=== PATIENT | male | born 1995 | race Two or more races ===

== ENCOUNTER 2017-10-22 15:44 | Inpatient (IN) | payer OTHER ==
[2017-10-22 16:36] VITALS: BMI 33.1
--- NOTE | 2017-10-22 20:35 | HP ---
COWS - Scale Resting Pulse: 0= [place] 80 or Below Sweatin=Flushed/Facial Moisture Restless Observation: 5= Unable to Sit Still Pupil Size: 1= Pupils >than Normal Bone or Joint Aches: 4=Acute Joint/Muscle Pain Runny Nose/ Eye Tearin= Runny Nose/Eyes GI Upset > 30mins: 0= None Tremor Observation: 1= Tremor [place], Not Seen Yawning Observation: 0= None Anxiety or Irritability: 2=Irritable/Anxious Goose Flesh Skin: 0=Smooth Skin COWS Score: 17 Admission ROS S - HPI Chief Complaint: "I AM HERE TO GET DETOXED" Allergies/Adverse Reactions: Allergies Allergy/AdvReac Type Severity Reaction Status Date / Time No Known Allergies Allergy Verified 10/22/17 19:24 History of Present Illness: 22 Y.O. MALE WITH HX/O OF OPIOID DEPENDENCE HERE FOR DETOX. CLIENT REPORTS THIS IS HIS FIRST TIME IN DRUG TXMENT. SELF REFERRED. DENIES ANY SIGNIFICANT PERIOD OF TIME. Exam Limitations: No Limitations - Ebola screening Have you traveled outside of the country in the last 21 days: No Have you had contact with anyone from an Ebola affected area: No Have you been sick,other than usual withdrawal symptoms: No Do you have a fever: No - Review of Systems Constitutional: Chills, Loss of Appetite, Malaise, Night Sweats, Changes in sleep, Unintentional Wgt. Loss EENT: reports: Nose Congestion, Dental Problems (TOOTH PAIN) Respiratory: reports: No Symptoms reported Cardiac: reports: No Symptoms Reported GI: reports: Constipated, Poor Appetite, Poor Fluid Intake, Abdominal cramping : reports: No Symptoms Reported Musculoskeletal: reports: Back Pain, Joint Pain Integumentary: reports: No Symptoms Reported Neuro: reports: Headache Endocrine: reports: No Symptoms Reported Hematology: reports: No Symptoms Reported Psychiatric: reports: Anxious, Depressed Other Systems: Reviewed and Negative Patient History - Patient Medical History Hx Anemia: No Hx Asthma: No Hx Chronic Obstructive Pulmonary Disease (COPD): No Hx Cancer: No Hx Cardiac Disorders: No Hx Congestive Heart Failure: No Hx Hypertension: No Hx Hypercholesterolemia: No Hx Pacemaker: No HX Cerebrovascular Accident: No Hx Seizures: No Hx Dementia: No Hx Diabetes: No Hx Gastrointestinal Disorders: Yes (ACID REFLUX) Hx Liver Disease: No Hx Genitourinary Disorders: No Hx Sexually Transmitted Disorders: No Hx Renal Disease (ESRD): No Hx Thyroid Disease: No Hx Human Immunodeficiency Virus (HIV): No Hx Hepatitis C: No Hx Depression: No Hx Suicide Attempt: No Hx Bipolar Disorder: No Hx Schizophrenia: No Other Medical History: ANXIETY - Patient Surgical History Past Surgical History: Yes Hx Neurologic Surgery: No Hx Cataract Extraction: No Hx Cardiac Surgery: No Hx Lung Surgery: No Hx Breast Surgery: No Hx Breast Biopsy: No Hx Abdominal Surgery: No Hx Appendectomy: No Hx Cholecystectomy: No Hx Genitourinary Surgery: No Hx Section: No Hx Orthopedic Surgery: Yes (L KNEE FX REPAIR WITH HARDWARE) Anesthesia Reaction: No - PPD History Previous Implant?: Yes Documented Results: Negative w/o proof Implanted On Prior [facility] Admission?: No PPD to be Administered?: Yes - Smoking Cessation Smoking history: Current every day smoker Have you smoked in the past 12 months: Yes Aproximately how many cigarettes per day: 20 Cigars Per Day: 0 Hx Chewing Tobacco Use: No Initiated information on smoking cessation: Yes 'Breaking Loose' booklet given: 10/22/17 - Substance & Tx. History Hx Alcohol Use: No Hx Substance Use: Yes Substance Use Type: Opiates Hx Substance Use Treatment: No - Substances Abused MS CONTIN Route: Oral Frequency: Daily Amount used: 5gm Age of first use: 21 Date of Last Use: 10/22/17 Family Disease History - Family Disease History Family Disease History: Respiratory: Father, Other: Mother (HTN) Admission Physical Exam BHS - Vital Signs Vital Signs: Vital Signs - 24 hr 10/22/17 16:33 Temperature 99.8 F H Pulse Rate 71 Respiratory 18 Rate Blood Pressure 158/85 - Physical General Appearance: Yes: Appropriately Dressed, Mild Distress, Tremorous, Sweating, Anxious HEENTM: Yes: EOMI, Normocephalic, Normal Voice, ELAINE (DIALATED), Pharynx Normal , Rhinorrhea Respiratory: Yes: Chest Non-Tender, Lungs Clear, Normal Breath Sounds, No Respiratory Distress, No Accessory Muscle Use Neck: Yes: No masses,lesions,Nodules, Supple, Trachea in good position Breast: Yes: Breast Exam Deferred Cardiology: Yes: Regular Rhythm, Regular Rate, S1, S2 Abdominal: Yes: Non Tender, Soft, Increased Bowel Sounds Genitourinary: Yes: Within Normal Limits Back: Yes: Normal Inspection Musculoskeletal: Yes: full range of Motion, Gait Steady Extremities: Yes: Normal Range of Motion, Non-Tender, Tremors 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 NML intact, Fully Oriented, Alert, Motor Strength 5/5 Integumentary: Yes: Warm, Moist, Other (FLUSHED) Lymphatic: Yes: Within Normal Limits - Diagnostic (1) Opioid dependence with withdrawal Current Visit: Yes Status: Chronic (2) Nicotine dependence Current Visit: Yes Status: Chronic Qualifiers: Nicotine product type: cigarettes Substance use status: uncomplicated Qualified Code(s): F17.210 - Nicotine dependence, cigarettes, uncomplicated (3) Constipation Current Visit: Yes Status: Chronic Qualifiers: Constipation type: drug induced constipation Qualified Code(s): K59.03 - Drug induced constipation Cleared for Admission [facility] - Detox or Rehab [facility] Level of Care: Medically Managed Detox Regimen/Protocol: Methadone Claeared for Rehab Admission: No S Breath Alcohol Content Breath Alcohol Content: 0 Urine Drug Screen - Results Drug Screen Negative: No Urine Drug Screen Results: OPI-Opiates, OXY-Oxycodone
[2017-10-22] MEDS ORDERED: MAGNESIUM HYDROX 2400MG/30ML ORAL SUSPENSION 30 ML CUP PO PRN (20:48)
[2017-10-22] MEDS ORDERED: P-EPHED 60MG/TRIPROLIDI 2.5MG TABLET PO PRN (20:48)
[2017-10-22] MEDS ORDERED: LOPERAMIDE HCL 2 MG CAPSULE PO PRN (20:48)
[2017-10-22] MEDS ORDERED: MAGNESIUM CITRATE 300 ML BOTTLE PO PRN (20:48)
[2017-10-22] MEDS ORDERED: MENTHOL/PHENOL 1 EACH UD MM PRN (20:48)
[2017-10-22] MEDS ORDERED: NICOTINE POLACRILEX 2 MG GUM BC PRN (20:48)
[2017-10-22] MEDS ORDERED: ACETAMINOPHEN 325 MG TABLET (FP) PO PRN (20:48)
[2017-10-22] MEDS ORDERED: MAG HYDROX/AL HYDROX/SIMETH 30 ML UNIT-DOSE CUP PO PRN (20:48)
[2017-10-22] MEDS ORDERED: IBUPROFEN 400 MG TABLET (FP) PO PRN (20:48)
[2017-10-22] MEDS ORDERED: METHADONE HCL 10 MG TABLET (FOR DETOX USE ONLY) PO ONE ×2 (20:48→23:00)
[2017-10-22] MEDS ORDERED: guaiFENesin/D-METHORPHAN HB 10 ML UNIT-DOSE CUPS PO PRN (20:48)
[2017-10-22] MEDS: DOCUSATE SODIUM 100 MG CAPSULE (FP) PO SCH (21:56)
[2017-10-22] MEDS: diazePAM 5 MG TABLET PO PRN (21:56)
[2017-10-22] MEDS: THIAMINE HCL 100 MG TABLET (FP) PO SCH (21:57)
[2017-10-22] MEDS ORDERED: MELATONIN 5 MG TABLETS PO PRN (22:00)
[2017-10-23] MEDS ORDERED: METHADONE HCL 10 MG TABLET (FOR DETOX USE ONLY) PO ONE (10:00)
[2017-10-23 10:10] LABS: ALBUMIN 3.8 g/dl (3.4-5.0); ANION GAP 7 (8-16); BLOOD UREA NITROGEN 13 mg/dL (7-18); CALCIUM 8.7 mg/dL (8.5-10.1); CHLORIDE 107 mmol/L (98-107); CO2 27 mmol/L (21-32); GLUCOSE,RANDOM 110 mg/dL (74-106); POTASSIUM 3.7 mmol/L (3.5-5.1); SODIUM 141 mmol/L (136-145)
[2017-10-23 10:14] LABS: HEMATOCRIT 39.3 % (35.4-49); HEMOGLOBIN 12.9 GM/dL (11.7-16.9); MCH 26.8 pg (25.7-33.7); MCHC 32.9 g/dl (32.0-35.9); MEAN CELL VOLUME 81.5 fl (80-96); MEAN PLT VOLUME 8.2 fl (7.5-11.1); PLATELET COUNT 260 K/MM3 (134-434); RBC 4.82 M/mm3 (4.00-5.60); WHITE BLOOD COUNT 10.9 K/mm3 (4.0-10.0)
--- NOTE | 2017-10-23 10:14 | EKG ---
Test Reason : Blood Pressure : / mmHG Vent. Rate : 077 BPM Atrial Rate : 077 BPM P-R Int : 160 ms QRS Dur : 096 ms QT Int : 374 ms P-R-T Axes : 041 054 031 degrees QTc Int : 423 ms NORMAL SINUS RHYTHM NORMAL ECG NO PREVIOUS ECGS AVAILABLE Confirmed by Lupillo Cat MD ([id number]) on 10/23/2017 10:14:22 AM Referred By: Confirmed By:Lupillo Cat MD
[2017-10-23 10:15] LABS: ALK PHOS 96 U/L (45-117); BILIRUBIN,TOTAL 0.8 mg/dL (0.2-1.0); CREATININE 0.9 mg/dL (0.7-1.3); SGOT/AST 12 U/L (15-37); SGPT/ALT 40 U/L (12-78); TOT PROT 6.9 g/dl (6.4-8.2)
[2017-10-23] MEDS: diazePAM 5 MG TABLET PO PRN ×3 (10:32→22:16)
[2017-10-23] MEDS: PRENATAL VITAMINS W/ FOLIC ACID TABLET (FP) PO SCH (10:32)
[2017-10-23] MEDS: NICOTINE 21 MG/24 HOURS TOPICAL PATCH TD SCH (10:33)
--- NOTE | 2017-10-23 11:36 | PN ---
BHS COWS - Scale Resting Pulse: 0= [place] 80 or Below Sweatin= Chills/Flushing Restless Observation: 3= Extraneous Movement Pupil Size: 2= Moderately Dilated Bone or Joint Aches: 4=Acute Joint/Muscle Pain Runny Nose/ Eye Tearin= Nasal Congestion GI Upset > 30mins: 1= Stomach Cramp Tremor Observation of Outstretched Hands: 1= Tremor [place], Not Seen Yawning Observation: 2= >3x During Session Anxiety or Irritability: 2=Irritable/Anxious Goose Flesh Skin: 0=Smooth Skin COWS Score: 17 BHS Progress Note (SOAP) Subjective: ANXIETY,SWEATS,IRRITABILITY,HOT/COLD SWEATS. Objective: 10/23/17 11:38 Vital Signs Temperature 99.1 F 10/23/17 09:16 Pulse Rate 76 10/23/17 09:16 Respiratory Rate 18 10/23/17 09:16 Blood Pressure 119/70 10/23/17 09:16 O2 Sat by Pulse Oximetry (%) Laboratory Last Values WBC 10.9 K/mm3 (4.0-10.0) H 10/23/17 08:00 RBC 4.82 M/mm3 (4.00-5.60) 10/23/17 08:00 Hgb 12.9 GM/dL (11.7-16.9) 10/23/17 08:00 Hct 39.3 % (35.4-49) 10/23/17 08:00 MCV 81.5 fl (80-96) 10/23/17 08:00 MCH 26.8 pg (25.7-33.7) 10/23/17 08:00 MCHC 32.9 g/dl (32.0-35.9) 10/23/17 08:00 RDW 15.0 % (11.9-15.9) 10/23/17 08:00 Plt Count 260 K/MM3 (134-434) 10/23/17 08:00 MPV 8.2 fl (7.5-11.1) 10/23/17 08:00 Sodium 141 mmol/L (136-145) 10/23/17 08:00 Potassium 3.7 mmol/L (3.5-5.1) 10/23/17 08:00 Chloride 107 mmol/L (98-107) 10/23/17 08:00 Carbon Dioxide 27 mmol/L (21-32) 10/23/17 08:00 Anion Gap 7 (8-16) L 10/23/17 08:00 BUN 13 mg/dL (7-18) 10/23/17 08:00 Creatinine 0.9 mg/dL (0.7-1.3) 10/23/17 08:00 Creat Clearance w eGFR > 60 (>60) 10/23/17 08:00 Random Glucose 110 mg/dL (74-106) H 10/23/17 08:00 Calcium 8.7 mg/dL (8.5-10.1) 10/23/17 08:00 Total Bilirubin 0.8 mg/dL (0.2-1.0) 10/23/17 08:00 AST 12 U/L (15-37) L 10/23/17 08:00 ALT 40 U/L (12-78) 10/23/17 08:00 Alkaline Phosphatase 96 U/L (45-117) 10/23/17 08:00 Total Protein 6.9 g/dl (6.4-8.2) 10/23/17 08:00 Albumin 3.8 g/dl (3.4-5.0) 10/23/17 08:00 Assessment: 10/23/17 11:38 WITHDRAWAL SX Plan: CONTINUE DETOX
--- NOTE | 2017-10-23 11:55 | CONSULT ---
[facility] Psychiatric Consult - Data Date of interview: 10/23/17 Admission source: [facility] Identifying data: First admission to [facility] for this 22 y/o Hispanoc male seeking detox treatment on for opiate dependence.Patient is single without children,domiciled,unemployed and supported by relatives. Substance Abuse History: Confirmed by pstient in this session.Details in current [facility] report : Smoking history: Current every day smoker. Have you smoked in the past 12 months: Yes. Aproximately how many cigarettes per day: 20. Cigars Per Day: 0. Hx Chewing Tobacco Use: No. Initiated information on smoking cessation: Yes. 'Breaking Loose' booklet given: 10/22/17. - Substance & Tx. History. Hx Alcohol Use: No. Hx Substance Use: Yes. Substance Use Type : Opiates. Hx Substance Use Treatment: No. - Substances Abused. MS CONTIN. Route: Oral. Frequency: Daily. Amount used: 5gm. Age of first use: 21. Date of Last Use: 10/22/17 Medical History: Patient endorses good general health.History of orthosurgery for fracture of left knee (hardware in place). Psychiatric History: Patient denies. Physical/Sexual Abuse/Trauma History: Patient denies. Additional Comment: Urine Drug Screen Results: OPI-Opiates, OXY-Oxycodone.Noted. Mental Status Exam - Mental Status Exam Alert and Oriented to: Time, Place, Person Cognitive Function: Good Patient Appearance: Well Groomed Mood: Hopeful, Euthymic Affect: Appropriate, Normal Range Patient Behavior: Fatigued, Cooperative Speech Pattern: Clear Voice Loudness: Normal Thought Process: Intact, Goal Oriented Thought Disorder: Not Present Hallucinations: Denies Suicidal Ideation: Denies Homicidal Ideation: Denies Insight/Judgement: Poor Sleep: Well Appetite: Good Muscle strength/Tone: Normal Gait/Station: Normal Psychiatric Findings - Problem List ([place] 1, 2,3) (1) Nicotine dependence Current Visit: Yes Status: Acute Qualifiers: Nicotine product type: cigarettes Substance use status: in withdrawal Qualified Code(s): F17.213 - Nicotine dependence, cigarettes, with withdrawal (2) Opioid dependence with withdrawal Current Visit: Yes Status: Acute - Initial Treatment Plan Initial Treatment Plan: Psychoeducation.Detoxification.Observation.
[2017-10-23 18:16] LABS: URINE APPEARANCE TURBID; URINE BILIRUBIN NEGATIVE (<2.0 mg/dL); URINE BLOOD NEGATIVE (NEGATIVE); URINE COLOR AMBER; URINE GLUCOSE (UA) NEGATIVE (NEGATIVE); URINE KETONE NEGATIVE (NEGATIVE); URINE LEUK ESTERASE NEGATIVE (NEGATIVE); URINE NITRITE NEGATIVE (NEGATIVE)
[2017-10-23 18:21] LABS: URINE PROTEIN 1+ (NEGATIVE)
[2017-10-23 19:14] LABS: CALCIUM OXALATE CRYSTALS FEW /hpf (NONE SEEN); EPI CELLS RARE /HPF (FEW); URINE BACTERIA RARE /hpf (NONE SEEN); URINE MUCUS MANY
[2017-10-23] MEDS: THIAMINE HCL 100 MG TABLET (FP) PO SCH (22:17)
[2017-10-23] MEDS: DOCUSATE SODIUM 100 MG CAPSULE (FP) PO SCH (22:17)
[2017-10-24] MEDS: diazePAM 5 MG TABLET PO PRN ×4 (06:56→19:10)
[2017-10-24] MEDS ORDERED: METHADONE HCL 5 MG TABLET (FOR DETOX USE ONLY) PO ONE (10:00)
[2017-10-24] MEDS: PRENATAL VITAMINS W/ FOLIC ACID TABLET (FP) PO SCH (10:44)
[2017-10-24] MEDS: NICOTINE 21 MG/24 HOURS TOPICAL PATCH TD SCH (10:44)
--- NOTE | 2017-10-24 11:56 | PN ---
BHS COWS - Scale Resting Pulse: 1= [place] 81-100 Sweatin= Chills/Flushing Restless Observation: 3= Extraneous Movement Pupil Size: 2= Moderately Dilated Bone or Joint Aches: 4=Acute Joint/Muscle Pain Runny Nose/ Eye Tearin= Nasal Congestion GI Upset > 30mins: 0= None Tremor Observation of Outstretched Hands: 1= Tremor [place], Not Seen Yawning Observation: 1= 1-2x During Session Anxiety or Irritability: 2=Irritable/Anxious Goose Flesh Skin: 0=Smooth Skin COWS Score: 16 BHS Progress Note (SOAP) Subjective: ANXIETY,SWEATS/CHILLS,MUSCLE ACHES. Objective: 10/24/17 11:55 Vital Signs Temperature 98.3 F 10/24/17 09:31 Pulse Rate 98 H 10/24/17 09:31 Respiratory Rate 20 10/24/17 09:31 Blood Pressure 127/75 10/24/17 09:31 O2 Sat by Pulse Oximetry (%) Laboratory Last Values WBC 10.9 K/mm3 (4.0-10.0) H 10/23/17 08:00 RBC 4.82 M/mm3 (4.00-5.60) 10/23/17 08:00 Hgb 12.9 GM/dL (11.7-16.9) 10/23/17 08:00 Hct 39.3 % (35.4-49) 10/23/17 08:00 MCV 81.5 fl (80-96) 10/23/17 08:00 MCH 26.8 pg (25.7-33.7) 10/23/17 08:00 MCHC 32.9 g/dl (32.0-35.9) 10/23/17 08:00 RDW 15.0 % (11.9-15.9) 10/23/17 08:00 Plt Count 260 K/MM3 (134-434) 10/23/17 08:00 MPV 8.2 fl (7.5-11.1) 10/23/17 08:00 Sodium 141 mmol/L (136-145) 10/23/17 08:00 Potassium 3.7 mmol/L (3.5-5.1) 10/23/17 08:00 Chloride 107 mmol/L (98-107) 10/23/17 08:00 Carbon Dioxide 27 mmol/L (21-32) 10/23/17 08:00 Anion Gap 7 (8-16) L 10/23/17 08:00 BUN 13 mg/dL (7-18) 10/23/17 08:00 Creatinine 0.9 mg/dL (0.7-1.3) 10/23/17 08:00 Creat Clearance w eGFR > 60 (>60) 10/23/17 08:00 Random Glucose 110 mg/dL (74-106) H 10/23/17 08:00 Calcium 8.7 mg/dL (8.5-10.1) 10/23/17 08:00 Total Bilirubin 0.8 mg/dL (0.2-1.0) 10/23/17 08:00 AST 12 U/L (15-37) L 10/23/17 08:00 ALT 40 U/L (12-78) 10/23/17 08:00 Alkaline Phosphatase 96 U/L (45-117) 10/23/17 08:00 Total Protein 6.9 g/dl (6.4-8.2) 10/23/17 08:00 Albumin 3.8 g/dl (3.4-5.0) 10/23/17 08:00 Urine Color Sera 10/22/17 17:00 Urine Appearance Turbid 10/22/17 17:00 Urine pH 5.0 (5.0-8.0) 10/22/17 17:00 Ur Specific [place] 1.031 (1.001-1.035) 10/22/17 17:00 Urine Protein 1+ (NEGATIVE) H 10/22/17 17:00 Urine Glucose (UA) Negative (NEGATIVE) 10/22/17 17:00 Urine Ketones Negative (NEGATIVE) 10/22/17 17:00 Urine Blood Negative (NEGATIVE) 10/22/17 17:00 Urine Nitrite Negative (NEGATIVE) 10/22/17 17:00 Urine Bilirubin Negative (<2.0 mg/dL) 10/22/17 17:00 Urine Urobilinogen 2.0 mg/dL (0.2-1.0) 10/22/17 17:00 Ur Leukocyte Esterase Negative (NEGATIVE) 10/22/17 17:00 Urine WBC (Auto) 4 /hpf (3-5) 10/22/17 17:00 Urine RBC (Auto) 3 /hpf (0-3) 10/22/17 17:00 Ur Epithelial Cells Rare /HPF (FEW) 10/22/17 17:00 Calcium Oxalate Crystal Few /hpf (NONE SEEN) 10/22/17 17:00 Urine Bacteria Rare /hpf (NONE SEEN) 10/22/17 17:00 Urine Mucus Many 10/22/17 17:00 Assessment: 10/24/17 11:56 WITHDRAWAL SX Plan: CONTINUE DETOX
[2017-10-24] MEDS ORDERED: ZOLPIDEM TARTRATE 5 MG TABLET PO PRN (22:00)
[2017-10-24] MEDS: THIAMINE HCL 100 MG TABLET (FP) PO SCH (22:16)
[2017-10-24] MEDS: DOCUSATE SODIUM 100 MG CAPSULE (FP) PO SCH (22:16)
[2017-10-24] MEDS: ZOLPIDEM TARTRATE 5 MG TABLET PO PRN (22:16)
[2017-10-25] MEDS: diazePAM 5 MG TABLET PO PRN ×4 (05:34→19:39)
[2017-10-25] MEDS: NICOTINE 21 MG/24 HOURS TOPICAL PATCH TD SCH (09:50)
[2017-10-25] MEDS: PRENATAL VITAMINS W/ FOLIC ACID TABLET (FP) PO SCH (09:50)
[2017-10-25] MEDS ORDERED: METHADONE HCL 5 MG TABLET (FOR DETOX USE ONLY) PO ONE (10:00)
--- NOTE | 2017-10-25 17:26 | PN ---
BHS Progress Note (SOAP) Subjective: Constipation, H/A, Body Aches, Sweating. Objective: PATIENT A & O X 3, OBSERVED AMBULATING ON UNIT. NO ACUTE DISTRESS. 10/25/17 17:25 Vital Signs Temperature 98.8 F 10/25/17 14:43 Pulse Rate 104 H 10/25/17 14:43 Respiratory Rate 18 10/25/17 14:43 Blood Pressure 125/84 10/25/17 14:43 O2 Sat by Pulse Oximetry (%) Laboratory Tests 10/22/17 10/23/17 10/23/17 17:00 08:00 08:00 WBC 10.9 H RBC 4.82 Hgb 12.9 Hct 39.3 MCV 81.5 MCH 26.8 MCHC 32.9 RDW 15.0 Plt Count 260 MPV 8.2 Sodium 141 Potassium 3.7 Chloride 107 Carbon Dioxide 27 Anion Gap 7 L BUN 13 Creatinine 0.9 Creat Clearance w eGFR > 60 Random Glucose 110 H Calcium 8.7 Total Bilirubin 0.8 AST 12 L ALT 40 Alkaline Phosphatase 96 Total Protein 6.9 Albumin 3.8 Urine Color Sera Urine Appearance Turbid Urine pH 5.0 Ur Specific [place] 1.031 Urine Protein 1+ H Urine Glucose (UA) Negative Urine Ketones Negative Urine Blood Negative Urine Nitrite Negative Urine Bilirubin Negative Urine Urobilinogen 2.0 Ur Leukocyte Esterase Negative Urine WBC (Auto) 4 Urine RBC (Auto) 3 Ur Epithelial Cells Rare Calcium Oxalate Crystal Few Urine Bacteria Rare Urine Mucus Many RPR Titer 10/23/17 08:00 WBC RBC Hgb Hct MCV MCH MCHC RDW Plt Count MPV Sodium Potassium Chloride Carbon Dioxide Anion Gap BUN Creatinine Creat Clearance w eGFR Random Glucose Calcium Total Bilirubin AST ALT Alkaline Phosphatase Total Protein Albumin Urine Color Urine Appearance Urine pH Ur Specific [place] Urine Protein Urine Glucose (UA) Urine Ketones Urine Blood Urine Nitrite Urine Bilirubin Urine Urobilinogen Ur Leukocyte Esterase Urine WBC (Auto) Urine RBC (Auto) Ur Epithelial Cells Calcium Oxalate Crystal Urine Bacteria Urine Mucus RPR Titer Nonreactive LABS NOTED. Assessment: 10/25/17 17:25 WITHDRAWAL SYMPTOMS. Plan: CONTINUE DETOX. INCREASE DAILY PO FLUID INTAKE. COLACE FOR CONSTIPATION.
[2017-10-25] MEDS: DOCUSATE SODIUM 100 MG CAPSULE (FP) PO SCH (22:17)
[2017-10-25] MEDS: THIAMINE HCL 100 MG TABLET (FP) PO SCH (22:18)
[2017-10-25] MEDS: ZOLPIDEM TARTRATE 5 MG TABLET PO PRN (22:20)
[2017-10-26] MEDS: hydrOXYzine PAMOATE 25 MG CAPSULE (FP) PO PRN ×2 (09:17→16:52)
[2017-10-26] MEDS ORDERED: METHADONE HCL 10 MG TABLET (FOR DETOX USE ONLY) PO ONE (10:00)
[2017-10-26] MEDS: PRENATAL VITAMINS W/ FOLIC ACID TABLET (FP) PO SCH (10:39)
[2017-10-26] MEDS: NICOTINE 21 MG/24 HOURS TOPICAL PATCH TD SCH (10:39)
--- NOTE | 2017-10-26 11:56 | PN ---
S Progress Note (SOAP) Subjective: OOB AMBULATING WITH STEADY GAIT. DETOX PROCEEDING WELL AND ADDRESSING AFTERCARE PLANS WITH COUNSELOR. Objective: 10/26/17 11:55 Vital Signs Temperature 96.4 F L 10/26/17 09:25 Pulse Rate 59 L 10/26/17 09:25 Respiratory Rate 18 10/26/17 09:25 Blood Pressure 116/69 10/26/17 09:25 O2 Sat by Pulse Oximetry (%) Laboratory Last Values WBC 10.9 K/mm3 (4.0-10.0) H 10/23/17 08:00 RBC 4.82 M/mm3 (4.00-5.60) 10/23/17 08:00 Hgb 12.9 GM/dL (11.7-16.9) 10/23/17 08:00 Hct 39.3 % (35.4-49) 10/23/17 08:00 MCV 81.5 fl (80-96) 10/23/17 08:00 MCH 26.8 pg (25.7-33.7) 10/23/17 08:00 MCHC 32.9 g/dl (32.0-35.9) 10/23/17 08:00 RDW 15.0 % (11.9-15.9) 10/23/17 08:00 Plt Count 260 K/MM3 (134-434) 10/23/17 08:00 MPV 8.2 fl (7.5-11.1) 10/23/17 08:00 Sodium 141 mmol/L (136-145) 10/23/17 08:00 Potassium 3.7 mmol/L (3.5-5.1) 10/23/17 08:00 Chloride 107 mmol/L (98-107) 10/23/17 08:00 Carbon Dioxide 27 mmol/L (21-32) 10/23/17 08:00 Anion Gap 7 (8-16) L 10/23/17 08:00 BUN 13 mg/dL (7-18) 10/23/17 08:00 Creatinine 0.9 mg/dL (0.7-1.3) 10/23/17 08:00 Creat Clearance w eGFR > 60 (>60) 10/23/17 08:00 Random Glucose 110 mg/dL (74-106) H 10/23/17 08:00 Calcium 8.7 mg/dL (8.5-10.1) 10/23/17 08:00 Total Bilirubin 0.8 mg/dL (0.2-1.0) 10/23/17 08:00 AST 12 U/L (15-37) L 10/23/17 08:00 ALT 40 U/L (12-78) 10/23/17 08:00 Alkaline Phosphatase 96 U/L (45-117) 10/23/17 08:00 Total Protein 6.9 g/dl (6.4-8.2) 10/23/17 08:00 Albumin 3.8 g/dl (3.4-5.0) 10/23/17 08:00 Urine Color Sera 10/22/17 17:00 Urine Appearance Turbid 10/22/17 17:00 Urine pH 5.0 (5.0-8.0) 10/22/17 17:00 Ur Specific [place] 1.031 (1.001-1.035) 10/22/17 17:00 Urine Protein 1+ (NEGATIVE) H 10/22/17 17:00 Urine Glucose (UA) Negative (NEGATIVE) 10/22/17 17:00 Urine Ketones Negative (NEGATIVE) 10/22/17 17:00 Urine Blood Negative (NEGATIVE) 10/22/17 17:00 Urine Nitrite Negative (NEGATIVE) 10/22/17 17:00 Urine Bilirubin Negative (<2.0 mg/dL) 10/22/17 17:00 Urine Urobilinogen 2.0 mg/dL (0.2-1.0) 10/22/17 17:00 Ur Leukocyte Esterase Negative (NEGATIVE) 10/22/17 17:00 Urine WBC (Auto) 4 /hpf (3-5) 10/22/17 17:00 Urine RBC (Auto) 3 /hpf (0-3) 10/22/17 17:00 Ur Epithelial Cells Rare /HPF (FEW) 10/22/17 17:00 Calcium Oxalate Crystal Few /hpf (NONE SEEN) 10/22/17 17:00 Urine Bacteria Rare /hpf (NONE SEEN) 10/22/17 17:00 Urine Mucus Many 10/22/17 17:00 RPR Titer Nonreactive (NONREACTIVE) 10/23/17 08:00 Assessment: 10/26/17 11:55 WITHDRAWAL SX Plan: CONTINUE DETOX
[2017-10-26] MEDS: THIAMINE HCL 100 MG TABLET (FP) PO SCH (22:19)
[2017-10-26] MEDS: ZOLPIDEM TARTRATE 5 MG TABLET PO PRN (22:19)
[2017-10-26] MEDS: DOCUSATE SODIUM 100 MG CAPSULE (FP) PO SCH (22:20)
[2017-10-27] MEDS: hydrOXYzine PAMOATE 25 MG CAPSULE (FP) PO PRN (00:28)
[2017-10-27] MEDS ORDERED: METHADONE HCL 5 MG TABLET (FOR DETOX USE ONLY) PO ONE (06:00)
[2017-10-27 06:27] VITALS: BP 118/89; PULSE 71; TEMP 96.4
[2017-10-27] MEDS: PRENATAL VITAMINS W/ FOLIC ACID TABLET (FP) PO SCH (09:17)
[2017-10-27] MEDS: NICOTINE 21 MG/24 HOURS TOPICAL PATCH TD SCH (09:19)
--- NOTE | 2017-10-27 16:10 | PN ---
S Progress Note (SOAP) Subjective: Patient denies any current Detox symptoms and reports that he feels well overall. Objective: PATIENT A & O X 3, OBSERVED AMBULATING ON UNIT. NO ACUTE DISTRESS. 10/27/17 16:09 Vital Signs Temperature 96.4 F L 10/27/17 06:26 Pulse Rate 71 10/27/17 06:26 Respiratory Rate 18 10/27/17 06:26 Blood Pressure 118/89 10/27/17 06:26 O2 Sat by Pulse Oximetry (%) Laboratory Tests 10/22/17 10/23/17 10/23/17 17:00 08:00 08:00 WBC 10.9 H RBC 4.82 Hgb 12.9 Hct 39.3 MCV 81.5 MCH 26.8 MCHC 32.9 RDW 15.0 Plt Count 260 MPV 8.2 Sodium 141 Potassium 3.7 Chloride 107 Carbon Dioxide 27 Anion Gap 7 L BUN 13 Creatinine 0.9 Creat Clearance w eGFR > 60 Random Glucose 110 H Calcium 8.7 Total Bilirubin 0.8 AST 12 L ALT 40 Alkaline Phosphatase 96 Total Protein 6.9 Albumin 3.8 Urine Color Sera Urine Appearance Turbid Urine pH 5.0 Ur Specific [place] 1.031 Urine Protein 1+ H Urine Glucose (UA) Negative Urine Ketones Negative Urine Blood Negative Urine Nitrite Negative Urine Bilirubin Negative Urine Urobilinogen 2.0 Ur Leukocyte Esterase Negative Urine WBC (Auto) 4 Urine RBC (Auto) 3 Ur Epithelial Cells Rare Calcium Oxalate Crystal Few Urine Bacteria Rare Urine Mucus Many RPR Titer 10/23/17 08:00 WBC RBC Hgb Hct MCV MCH MCHC RDW Plt Count MPV Sodium Potassium Chloride Carbon Dioxide Anion Gap BUN Creatinine Creat Clearance w eGFR Random Glucose Calcium Total Bilirubin AST ALT Alkaline Phosphatase Total Protein Albumin Urine Color Urine Appearance Urine pH Ur Specific [place] Urine Protein Urine Glucose (UA) Urine Ketones Urine Blood Urine Nitrite Urine Bilirubin Urine Urobilinogen Ur Leukocyte Esterase Urine WBC (Auto) Urine RBC (Auto) Ur Epithelial Cells Calcium Oxalate Crystal Urine Bacteria Urine Mucus RPR Titer Nonreactive LABS NOTED. Assessment: 10/27/17 16:09 COMPLETION OF DETOX REGIMEN. Plan: PATIENT SCHEDULED FOR DISCHARGE FROM DETOX TODAY. PATIENT WILL GO HOME FOR WEEKEND, THEN WILL INITIATE TREATMENT AT [facility] ([facility]) ON 10/29/2017.
--- NOTE | 2017-10-27 16:11 | DS ---
[facility] Detox Discharge Summary Admission Date: 10/22/17 Discharge Date: 10/27/17 - History Present History: Opioid Dependence Additional Comments: PATIENT WILL GO HOME FOR WEEKEND, THEN WILL INITIATE TREATMENT AT [facility] ([facility]) ON 10/29/2017. PATIENT WAS DISCHARGED FROM DETOX UNIT IN STABLE MEDICAL CONDITION. Pertinent Past History: Constipation, Acid Reflux, Insomnia. - Physical Exam Results Vital Signs: Vital Signs Temperature 96.4 F L 10/27/17 06:26 Pulse Rate 71 10/27/17 06:26 Respiratory Rate 10/27/17 06:26 Blood Pressure 118/89 10/27/17 06:26 O2 Sat by Pulse Oximetry (%) Pertinent Admission Physical Exam Findings: WITHDRAWAL SYMPTOMS. Laboratory Tests 10/22/17 10/23/17 10/23/17 17:00 08:00 08:00 WBC 10.9 H RBC 4.82 Hgb 12.9 Hct 39.3 MCV 81.5 MCH 26.8 MCHC 32.9 RDW 15.0 Plt Count 260 MPV 8.2 Sodium 141 Potassium 3.7 Chloride 107 Carbon Dioxide 27 Anion Gap 7 L BUN 13 Creatinine 0.9 Creat Clearance w eGFR > 60 Random Glucose 110 H Calcium 8.7 Total Bilirubin 0.8 AST 12 L ALT 40 Alkaline Phosphatase 96 Total Protein 6.9 Albumin 3.8 Urine Color Sera Urine Appearance Turbid Urine pH 5.0 Ur Specific [place] 1.031 Urine Protein 1+ H Urine Glucose (UA) Negative Urine Ketones Negative Urine Blood Negative Urine Nitrite Negative Urine Bilirubin Negative Urine Urobilinogen 2.0 Ur Leukocyte Esterase Negative Urine WBC (Auto) 4 Urine RBC (Auto) 3 Ur Epithelial Cells Rare Calcium Oxalate Crystal Few Urine Bacteria Rare Urine Mucus Many RPR Titer 10/23/17 08:00 WBC RBC Hgb Hct MCV MCH MCHC RDW Plt Count MPV Sodium Potassium Chloride Carbon Dioxide Anion Gap BUN Creatinine Creat Clearance w eGFR Random Glucose Calcium Total Bilirubin AST ALT Alkaline Phosphatase Total Protein Albumin Urine Color Urine Appearance Urine pH Ur Specific [place] Urine Protein Urine Glucose (UA) Urine Ketones Urine Blood Urine Nitrite Urine Bilirubin Urine Urobilinogen Ur Leukocyte Esterase Urine WBC (Auto) Urine RBC (Auto) Ur Epithelial Cells Calcium Oxalate Crystal Urine Bacteria Urine Mucus RPR Titer Nonreactive LABS NOTED. - Treatment Hospital Course: Detox Protocol Followed, Detoxed Safely, Responded well, Discharged Condition Good Patient has Accepted a Rehab Referral to: PT WILL START TREATMENT AT [facility] ( [facility]) ON 10/29/2017. - Medication Discharge Medications: Ambulatory Orders NK [No Known Home Medication] 10/22/17 - Diagnosis (1) Nicotine dependence Status: Acute Qualifiers: Nicotine product type: cigarettes Substance use status: in withdrawal Qualified Code(s): F17.213 - Nicotine dependence, cigarettes, with withdrawal (2) Opioid dependence with withdrawal Status: Acute (3) Constipation Status: Chronic Qualifiers: Constipation type: drug induced constipation Qualified Code(s): K59.03 - Drug induced constipation - AMA Did Patient Leave Against Medical Advice: No
== END 2017-10-27 09:18 | disposition home or self-care (01) | DRG 773 ==
LOC: YASAS 15:44 → Y3N 20:50
PROVIDERS: ADMIT Internal Medicine; ATTEND Internal Medicine
PROC: HZ2ZZZZ Detoxification Services for Substance Abuse Treatment (ICD-10-PCS; principal; 2017-10-22)
DX: F11.23 Opioid dependence with withdrawal (principal); F17.210 Nicotine dependence, cigarettes, uncomplicated; F41.9 Anxiety disorder, unspecified; K59.03 Drug induced constipation; K21.9 Gastro-esophageal reflux disease without esophagitis
CPT/HCPCS: 36415; 80053; 81003; 81015; 85027; 86593; 93005; 93010

== ENCOUNTER 2018-07-05 19:54 | Inpatient (IN) | payer OTHER ==
[2018-07-05 20:44] VITALS: BMI 28.3
--- NOTE | 2018-07-05 22:17 | HP ---
COWS - Scale Resting Pulse: 1= [place] 81-100 Sweatin=Flushed/Facial Moisture Restless Observation: 5= Unable to Sit Still Pupil Size: 1= Pupils >than Normal Bone or Joint Aches: 4=Acute Joint/Muscle Pain Runny Nose/ Eye Tearin= Nasal Congestion GI Upset > 30mins: 2= Nausea/Diarrhea Tremor Observation: 0= None Yawning Observation: 0= None Anxiety or Irritability: 2=Irritable/Anxious Goose Flesh Skin: 0=Smooth Skin COWS Score: 18 CIWA Score - Admission Criteria [facility]ASAS Guidelines: Admission for Medically Managed Detox: Requires at least one of the followin. CIWA greater than 12 2. Seizures within the past 24 hours 3. Delirium tremens within the past 24 hours 4. Hallucinations within the past 24 hours 5. Acute intervention needed for co occurring medical disorder 6. Acute intervention needed for co occurring psychiatric disorder 7. Severe withdrawal that cannot be handled at a lower level of care (continued vomiting, continued diarrhea, abnormal vital signs) requiring intravenous medication and/or fluids 8. Admission ROS [facility] Chief Complaint: C/O WITHDRAWAL SX'S. SEEKING DETOX FROM HEROIN USE Allergies/Adverse Reactions: Allergies Allergy/AdvReac Type Severity Reaction Status Date / Time No Known Allergies Allergy Verified 07/05/18 22:01 History of Present Illness: 22 Y.O. MALE WITH HX/O OPIOID DEPENDENCE HERE FOR DETOX. SELF REFERRED TODAY. HE PRESENTS WITH C/O WITHDRAWAL SX'S. COWS 18. HE IS KNOWN TO THIS PROGRAM LAST HERE 10/2017. REPORTS ATTEMPTED MMTP HERE AT [facility] AFTER LAST DETOX BUT WAS NOT SUCCESSFUL. LAST THERE 01/2018. DENIES ANY SIGNIFICANT PERIOD OF CLEAN TIME. DENIES HX/O SI, HI, AVH, SEIZURE D/O, DRUG OVERDOSE. CURRENTLY LIVE WITH FAMILY , UNEMPLOYED. PMHX- DENIES PSYCH- ANXIETY, INSOMNIA Exam Limitations: No Limitations - Ebola screening Have you traveled outside of the country in the last 21 days: No Have you had contact with anyone from an Ebola affected area: No Have you been sick,other than usual withdrawal symptoms: No Do you have a fever: No - Review of Systems Constitutional: Chills, Loss of Appetite, Malaise, Night Sweats, Changes in sleep EENT: reports: Nose Congestion Respiratory: reports: No Symptoms reported Cardiac: reports: No Symptoms Reported GI: reports: Nausea, Poor Appetite, Poor Fluid Intake : reports: No Symptoms Reported Musculoskeletal: reports: Back Pain Integumentary: reports: Flushing Neuro: reports: Headache, Tremors (R/T WITHDRAWAL SX'S/ ANXIETY) Endocrine: reports: No Symptoms Reported Hematology: reports: No Symptoms Reported Psychiatric: reports: Anxious, Depressed Other Systems: Reviewed and Negative Patient History - Patient Medical History Hx Anemia: No Hx Asthma: No Hx Chronic Obstructive Pulmonary Disease (COPD): No Hx Cancer: No Hx Cardiac Disorders: No Hx Congestive Heart Failure: No Hx Hypertension: No Hx Hypercholesterolemia: No Hx Pacemaker: No HX Cerebrovascular Accident: No Hx Seizures: No Hx Dementia: No Hx Diabetes: No Hx Gastrointestinal Disorders: No Hx Liver Disease: No Hx Genitourinary Disorders: No Hx Sexually Transmitted Disorders: No Hx Renal Disease (ESRD): No Hx Thyroid Disease: No Hx Human Immunodeficiency Virus (HIV): No Hx Hepatitis C: No Hx Depression: No Hx Suicide Attempt: No Hx Bipolar Disorder: No Hx Schizophrenia: No Other Medical History: ANXIETY - Patient Surgical History Past Surgical History: Yes Hx Neurologic Surgery: No Hx Cataract Extraction: No Hx Cardiac Surgery: No Hx Lung Surgery: No Hx Breast Surgery: No Hx Breast Biopsy: No Hx Abdominal Surgery: No Hx Appendectomy: No Hx Cholecystectomy: No Hx Genitourinary Surgery: No Hx Section: No Hx Orthopedic Surgery: Yes (L KNEE FX REPAIR WITH HARDWARE) Anesthesia Reaction: No - PPD History Previous Implant?: Yes Documented Results: Negative w/proof Date: 10/24/17 Results: 0MM PPD to be Administered?: No - Smoking Cessation Smoking history: Current every day smoker Have you smoked in the past 12 months: Yes Aproximately how many cigarettes per day: 20 Cigars Per Day: 0 Hx Chewing Tobacco Use: No Initiated information on smoking cessation: Yes 'Breaking Loose' booklet given: 07/05/18 - Substance & Tx. History Hx Alcohol Use: No Hx Substance Use: Yes Substance Use Type: Heroin Hx Substance Use Treatment: Yes ([facility]) - Substances Abused Heroin Route: SNIFF Frequency: Daily Amount used: 1 GRAM Age of first use: 22 Date of Last Use: 07/02/18 Family Disease History - Family Disease History Family Disease History: Respiratory: Father, Other: Mother (HTN) Admission Physical Exam BHS - Vital Signs Vital Signs: Vital Signs - 24 hr 07/05/18 20:40 Temperature 99.4 F Pulse Rate 82 Respiratory 18 Rate Blood Pressure 105/75 - Physical General Appearance: Yes: Appropriately Dressed, Tremorous (FELT), Sweating ( FLUSHED/ MOIST SKIN), Anxious HEENTM: Yes: EOMI, Normal ENT Inspection, Normocephalic, Normal Voice, ELAINE, Pharynx Normal, Nasal Congestion, Other (HEALING SCAR TO RIGHT JAW FROM A CUT WITH A GENERAL ACTIVITIES THERAPIST) Respiratory: Yes: Chest Non-Tender, Lungs Clear, Normal Breath Sounds, No Respiratory Distress, No Accessory Muscle Use Neck: Yes: No masses,lesions,Nodules, Supple Breast: Yes: Breast Exam Deferred Cardiology: Yes: Regular Rhythm, Regular Rate, S1, S2 Abdominal: Yes: Normal Bowel Sounds, Non Tender, Soft Genitourinary: Yes: Within Normal Limits Musculoskeletal: Yes: full range of Motion, Gait Steady Extremities: Yes: Normal Capillary Refill, Normal Range of Motion, Non-Tender, Tremors (FELT) Neurological: Yes: midlevel provider II-XII NML intact, Fully Oriented, Alert, Motor Strength 5/5 Integumentary: Yes: Warm, Moist, Other (FLUSHED) Lymphatic: Yes: Within Normal Limits - Diagnostic (1) Substance induced mood disorder Current Visit: Yes Status: Suspected (2) At risk for dehydration due to poor fluid intake Current Visit: Yes Status: Acute (3) Nicotine dependence Current Visit: Yes Status: Chronic Qualifiers: Nicotine product type: cigarettes Substance use status: in withdrawal Qualified Code(s): F17.213 - Nicotine dependence, cigarettes, with withdrawal (4) Opioid dependence with withdrawal Current Visit: Yes Status: Acute Cleared for Admission [facility] - Detox or Rehab [facility] Level of Care: Medically Supervised Detox Regimen/Protocol: Methadone Claeared for Rehab Admission: No [facility] Breath Alcohol Content Breath Alcohol Content: 0 Urine Drug Screen - Results Drug Screen Negative: No Urine Drug Screen Results: FEN-Fentanyl
[2018-07-05] MEDS ORDERED: P-EPHED 60MG/TRIPROLIDI 2.5MG TABLET PO PRN (22:29)
[2018-07-05] MEDS ORDERED: LOPERAMIDE HCL 2 MG CAPSULE PO PRN (22:29)
[2018-07-05] MEDS ORDERED: ACETAMINOPHEN 325 MG TABLET (FP) PO PRN (22:29)
[2018-07-05] MEDS ORDERED: MAG HYDROX/AL HYDROX/SIMETH 30 ML UNIT-DOSE CUP PO PRN (22:29)
[2018-07-05] MEDS ORDERED: MAGNESIUM CITRATE 300 ML BOTTLE PO PRN (22:29)
[2018-07-05] MEDS ORDERED: MENTHOL/PHENOL 1 EACH UD MM PRN (22:29)
[2018-07-05] MEDS ORDERED: METHADONE HCL 10 MG TABLET (FOR DETOX USE ONLY) PO ONE ×2 (22:29→23:00)
[2018-07-05] MEDS ORDERED: IBUPROFEN 400 MG TABLET (FP) PO PRN (22:29)
[2018-07-05] MEDS ORDERED: MAGNESIUM HYDROX 2400MG/30ML ORAL SUSPENSION 30 ML CUP PO PRN (22:29)
[2018-07-05] MEDS ORDERED: guaiFENesin/D-METHORPHAN HB 10 ML UNIT-DOSE CUPS PO PRN (22:29)
[2018-07-05] MEDS: diazePAM 5 MG TABLET PO PRN (23:01)
[2018-07-05] MEDS ORDERED: TRIMETHOBENZAMIDE HCL 200MG/2ML INJ IM PRN (23:12)
[2018-07-05] MEDS ORDERED: METHADONE DETOX 10 MG/1 ML [20ML VIAL] IM ONE (23:55)
--- NOTE | 2018-07-05 23:58 | PN ---
BHS Progress Note Note: methdone 10 mg im given 2/2 to withdrawal sx's and vomitting. cient vomitted up po methadone by nursing staff with medicationvisible in vomitus tavares
[2018-07-06] MEDS: hydrOXYzine PAMOATE 50 MG CAPSULE (FP) PO PRN (01:22)
[2018-07-06] MEDS: CYCLOBENZAPRINE HCL 5 MG TABLET PO PRN (01:22)
[2018-07-06] MEDS ORDERED: METHADONE HCL 10 MG TABLET (FOR DETOX USE ONLY) PO ONE (10:00)
[2018-07-06] MEDS: PRENATAL VITAMINS W/ FOLIC ACID TABLET (FP) PO SCH (10:34)
[2018-07-06] MEDS: NICOTINE 21 MG/24 HOURS TOPICAL PATCH TD SCH (10:35)
[2018-07-06] MEDS: diazePAM 5 MG TABLET PO PRN ×4 (10:35→22:21)
[2018-07-06 10:47] LABS: ALBUMIN 4.3 g/dl (3.4-5.0); ALK PHOS 103 U/L (45-117); ANION GAP 8 MMOL/L (8-16); BILIRUBIN,TOTAL 1.5 mg/dL (0.2-1); BLOOD UREA NITROGEN 16 mg/dL (7-18); CALCIUM 9.3 mg/dL (8.5-10.1); CHLORIDE 103 mmol/L (98-107); CO2 26 mmol/L (21-32); GLUCOSE,RANDOM 83 mg/dL (74-106); POTASSIUM 3.8 mmol/L (3.5-5.1); SGOT/AST 16 U/L (15-37); SGPT/ALT 23 U/L (13-61); SODIUM 137 mmol/L (136-145); TOT PROT 7.8 g/dl (6.4-8.2)
[2018-07-06 10:56] LABS: RDW 14.5 % (11.9-15.9)
[2018-07-06 11:02] LABS: HEMATOCRIT 41.7 % (35.4-49); HEMOGLOBIN 13.4 GM/dL (11.7-16.9); MCH 25.6 pg (25.7-33.7); MCHC 32.2 g/dl (32.0-35.9); MEAN CELL VOLUME 79.4 fl (80-96); MEAN PLT VOLUME 8.7 fl (7.5-11.1); PLATELET COUNT 262 K/MM3 (134-434); RBC 5.25 M/mm3 (4.00-5.60); WHITE BLOOD COUNT 13.3 K/mm3 (4.0-10.0)
[2018-07-06 11:05] LABS: URINE APPEARANCE TURBID; URINE BILIRUBIN NEGATIVE (<2.0 mg/dL); URINE COLOR YELLOW; URINE GLUCOSE (UA) NEGATIVE (NEGATIVE); URINE KETONE 1+ (NEGATIVE); URINE LEUK ESTERASE NEGATIVE (NEGATIVE); URINE NITRITE NEGATIVE (NEGATIVE); URINE PROTEIN 1+ (NEGATIVE); URINE UROBILINOGEN 4.0 E.U/dl mg/dL (0.2-1.0)
[2018-07-06 11:14] LABS: URINE MUCUS MANY
--- NOTE | 2018-07-06 13:05 | PN ---
BHS COWS - Scale Resting Pulse: 0= [place] 80 or Below Sweatin= Chills/Flushing Restless Observation: 1= Difficult to Sit Still Pupil Size: 0= Normal to Room Light Bone or Joint Aches: 2= Severe Diffuse Aches Runny Nose/ Eye Tearin= Nasal Congestion GI Upset > 30mins: 3= Vomiting/Diarrhea Tremor Observation of Outstretched Hands: 2= Slight Tremor Visible Yawning Observation: 0= None Anxiety or Irritability: 2=Irritable/Anxious Goose Flesh Skin: 0=Smooth Skin COWS Score: 12 BHS Progress Note (SOAP) Subjective: Interrupted sleep, leg pain, N/V Objective: 07/06/18 13:01 Vital Signs Temperature 98.9 F 07/06/18 10:54 Pulse Rate 69 07/06/18 10:54 Respiratory Rate 18 07/06/18 10:54 Blood Pressure 118/62 07/06/18 10:54 O2 Sat by Pulse Oximetry (%) Laboratory Last Values WBC 13.3 K/mm3 (4.0-10.0) H 07/06/18 07:40 RBC 5.25 M/mm3 (4.00-5.60) 07/06/18 07:40 Hgb 13.4 GM/dL (11.7-16.9) 07/06/18 07:40 Hct 41.7 % (35.4-49) 07/06/18 07:40 MCV 79.4 fl (80-96) L 07/06/18 07:40 MCH 25.6 pg (25.7-33.7) L 07/06/18 07:40 MCHC 32.2 g/dl (32.0-35.9) 07/06/18 07:40 RDW 14.5 % (11.9-15.9) 07/06/18 07:40 Plt Count 262 K/MM3 (134-434) 07/06/18 07:40 MPV 8.7 fl (7.5-11.1) 07/06/18 07:40 Sodium 137 mmol/L (136-145) 07/06/18 07:40 Potassium 3.8 mmol/L (3.5-5.1) 07/06/18 07:40 Chloride 103 mmol/L (98-107) 07/06/18 07:40 Carbon Dioxide 26 mmol/L (21-32) 07/06/18 07:40 Anion Gap 8 MMOL/L (8-16) 07/06/18 07:40 BUN 16 mg/dL (7-18) 07/06/18 07:40 Creatinine 1.0 mg/dL (0.55-1.3) 07/06/18 07:40 Creat Clearance w eGFR > 60 (>60) 07/06/18 07:40 Random Glucose 83 mg/dL (74-106) 07/06/18 07:40 Calcium 9.3 mg/dL (8.5-10.1) 07/06/18 07:40 Total Bilirubin 1.5 mg/dL (0.2-1) H 07/06/18 07:40 AST 16 U/L (15-37) 07/06/18 07:40 ALT 23 U/L (13-61) 07/06/18 07:40 Alkaline Phosphatase 103 U/L (45-117) 07/06/18 07:40 Total Protein 7.8 g/dl (6.4-8.2) 07/06/18 07:40 Albumin 4.3 g/dl (3.4-5.0) 07/06/18 07:40 Urine Color Yellow 07/06/18 08:50 Urine Appearance Turbid 07/06/18 08:50 Urine pH 6.0 (5.0-8.0) 07/06/18 08:50 Ur Specific [place] 1.033 (1.010-1.035) 07/06/18 08:50 Urine Protein 1+ (NEGATIVE) H 07/06/18 08:50 Urine Glucose (UA) Negative (NEGATIVE) 07/06/18 08:50 Urine Ketones 1+ (NEGATIVE) H 07/06/18 08:50 Urine Blood Negative (NEGATIVE) 07/06/18 08:50 Urine Nitrite Negative (NEGATIVE) 07/06/18 08:50 Urine Bilirubin Negative (<2.0 mg/dL) 07/06/18 08:50 Urine Urobilinogen 4.0 e.u/dl mg/dL (0.2-1.0) 07/06/18 08:50 Ur Leukocyte Esterase Negative (NEGATIVE) 07/06/18 08:50 Urine WBC (Auto) None /hpf (3-5) 07/06/18 08:50 Urine RBC (Auto) None /hpf (0-3) 07/06/18 08:50 Urine Mucus Many 07/06/18 08:50 Labs noted; leukocytosis without any signs of infection UA negative He denies cough, chills, SOB Assessment: 07/06/18 13:03 Withdrawal sx Leukocytosis Plan: Continue detox Repeat CBC on 07/08 Encourage oral fluid intake
--- NOTE | 2018-07-06 15:37 | CONSULT ---
[facility] Psychiatric Consult - Data Date of interview: 07/06/18 Admission source: [facility] Identifying data: First admission to [facility] for this 22 y/o Hispanoc male seeking detox treatment on for opiate dependence. Patient is single without children, domiciled, unemployed and supported by relatives. Substance Abuse History: Confirmed by the patient. Details in current [facility] report : Smoking history: Current every day smoker. Have you smoked in the past 12 months: Yes. Aproximately how many cigarettes per day: 20. Cigars Per Day: 0. Hx Chewing Tobacco Use: No. Initiated information on smoking cessation : Yes. 'Breaking Loose' booklet given: 07/05/18. - Substance & Tx. History. Hx Alcohol Use: No. Hx Substance Use: Yes. Substance Use Type: Heroin. Hx Substance Use Treatment: Yes ([facility]). - Substances Abused. Heroin. Route: SNIFF. Frequency: Daily. Amount used: 1 GRAM. Age of first use: 22. Date of Last Use: 07/02/18 Medical History: Patient denies medical problems. History of orthosurgery for fracture of left knee (hardware in place). Psychiatric History: Patient denies history of psychiatric hospitalizations. Brief contact with [facility] (used to be on methadone maintenance : 40 mg/day ; discontinued months ago). No reported history of suicide attempts. Physical/Sexual Abuse/Trauma History: Patient denies. Additional Comment: Urine Drug Screen Results: FEN-Fentanyl. Noted. Mental Status Exam - Mental Status Exam Alert and Oriented to: Time, Place, Person Cognitive Function: Good Patient Appearance: Well Groomed Mood: Nervous, Anxious, Hopeful Affect: Appropriate, Normal Range Patient Behavior: Cooperative Speech Pattern: Clear, Appropriate Voice Loudness: Normal Thought Process: Goal Oriented Thought Disorder: Not Present Hallucinations: Denies Suicidal Ideation: Denies Homicidal Ideation: Denies Insight/Judgement: Poor Sleep: Poorly, Difficulty falling asleep Appetite: Good Muscle strength/Tone: Normal Gait/Station: Normal Psychiatric Findings - Problem List ([place] 1, 2,3) (1) Opioid dependence with withdrawal Current Visit: Yes Status: Acute (2) Nicotine dependence Current Visit: Yes Status: Chronic Qualifiers: Nicotine product type: cigarettes Substance use status: uncomplicated Qualified Code(s): F17.210 - Nicotine dependence, cigarettes, uncomplicated (3) Substance induced mood disorder Current Visit: Yes Status: Chronic (4) Insomnia Current Visit: Yes Status: Acute - Initial Treatment Plan Initial Treatment Plan: Psychoeducation. NA meetings. Sleep hygiene. Detoxification. Insomnia is addressed with trazodone 50 mg po hs at patient's request. Made aware of potential for priapism. Mr Figueroa consents (verbally ) to his plan of care. Observation.
[2018-07-06] MEDS: THIAMINE HCL 100 MG TABLET (FP) PO SCH (22:21)
[2018-07-06] MEDS: MELATONIN 5 MG TABLETS PO PRN (22:22)
[2018-07-07] MEDS: diazePAM 5 MG TABLET PO PRN ×4 (07:29→20:03)
[2018-07-07] MEDS ORDERED: METHADONE HCL 5 MG TABLET (FOR DETOX USE ONLY) PO ONE (10:00)
[2018-07-07] MEDS: NICOTINE 21 MG/24 HOURS TOPICAL PATCH TD SCH (10:05)
[2018-07-07] MEDS: PRENATAL VITAMINS W/ FOLIC ACID TABLET (FP) PO SCH (10:05)
[2018-07-07] MEDS: NICOTINE POLACRILEX 2 MG GUM BC PRN (13:35)
[2018-07-07] MEDS: CYCLOBENZAPRINE HCL 5 MG TABLET PO PRN ×2 (13:36→22:27)
--- NOTE | 2018-07-07 18:16 | PN ---
BHS COWS - Scale Resting Pulse: 1= [place] 81-100 Sweatin= Chills/Flushing Restless Observation: 3= Extraneous Movement Pupil Size: 0= Normal to Room Light Bone or Joint Aches: 2= Severe Diffuse Aches Runny Nose/ Eye Tearin= Runny Nose/Eyes GI Upset > 30mins: 1= Stomach Cramp Tremor Observation of Outstretched Hands: 2= Slight Tremor Visible Yawning Observation: 0= None Anxiety or Irritability: 2=Irritable/Anxious Goose Flesh Skin: 0=Smooth Skin COWS Score: 14 BHS Progress Note (SOAP) Subjective: Muscle ache, chills, N/V, stomachache, anxious, interrupted sleep Objective: 07/07/18 18:12 Last Vital Signs Temp Pulse Resp BP Pulse Ox 98.3 F 95 H 18 124/85 07/07/18 13:48 07/07/18 13:48 07/07/18 13:48 07/07/18 13:48 Laboratory Tests 07/06/18 07/06/18 07/06/18 07:40 07:40 07:40 WBC 13.3 H RBC 5.25 Hgb 13.4 Hct 41.7 MCV 79.4 L MCH 25.6 L MCHC 32.2 RDW 14.5 Plt Count 262 MPV 8.7 Sodium 137 Potassium 3.8 Chloride 103 Carbon Dioxide 26 Anion Gap 8 BUN 16 Creatinine 1.0 Creat Clearance w eGFR > 60 Random Glucose 83 Calcium 9.3 Total Bilirubin 1.5 H AST 16 ALT 23 Alkaline Phosphatase 103 Total Protein 7.8 Albumin 4.3 Urine Color Urine Appearance Urine pH Ur Specific [place] Urine Protein Urine Glucose (UA) Urine Ketones Urine Blood Urine Nitrite Urine Bilirubin Urine Urobilinogen Ur Leukocyte Esterase Urine WBC (Auto) Urine RBC (Auto) Urine Mucus RPR Titer Nonreactive 07/06/18 08:50 WBC RBC Hgb Hct MCV MCH MCHC RDW Plt Count MPV Sodium Potassium Chloride Carbon Dioxide Anion Gap BUN Creatinine Creat Clearance w eGFR Random Glucose Calcium Total Bilirubin AST ALT Alkaline Phosphatase Total Protein Albumin Urine Color Yellow Urine Appearance Turbid Urine pH 6.0 Ur Specific [place] 1.033 Urine Protein 1+ H Urine Glucose (UA) Negative Urine Ketones 1+ H Urine Blood Negative Urine Nitrite Negative Urine Bilirubin Negative Urine Urobilinogen 4.0 e.u/dl Ur Leukocyte Esterase Negative Urine WBC (Auto) None Urine RBC (Auto) None Urine Mucus Many RPR Titer Labs reviewed: wbc 13.3, abnormal UA, elevated total bilirubin 1.5 Assessment: 07/07/18 18:14 Withdrawal symptoms Noted with leukocytosis, elevated total bilirubin and abnormal UA Plan: Continue detox Leukocytosis: asymptomatic, already ordered for repeated CBC, follow up on result Elevated total bilirubin: repeat total bilirubin Abnormal UA: encouraged PO water intake, repeat UA
[2018-07-07] MEDS: traZODone HCL 50 MG TABLET (FP) PO SCH (22:27)
[2018-07-07] MEDS: THIAMINE HCL 100 MG TABLET (FP) PO SCH (22:27)
[2018-07-08] MEDS: diazePAM 5 MG TABLET PO PRN ×3 (07:32→16:25)
[2018-07-08] MEDS ORDERED: METHADONE HCL 5 MG TABLET (FOR DETOX USE ONLY) PO ONE (10:00)
[2018-07-08 10:07] LABS: BASO % 0.6 % (0-2.0); EOS % 6.3 % (0-4.5); HEMATOCRIT 38.5 % (35.4-49); HEMOGLOBIN 13.2 GM/dL (11.7-16.9); LYMPH % 52.3 % (8-40); MCH 27.4 pg (25.7-33.7); MCHC 34.3 g/dl (32.0-35.9); MEAN CELL VOLUME 79.8 fl (80-96); MONO % 7.6 % (3.8-10.2); NEUT % 33.2 % (42.8-82.8); PLATELET COUNT 238 K/MM3 (134-434); RBC 4.83 M/mm3 (4.00-5.60); RDW 14.5 % (11.9-15.9); WHITE BLOOD COUNT 6.5 K/mm3 (4.0-10.0)
[2018-07-08] MEDS: NICOTINE 21 MG/24 HOURS TOPICAL PATCH TD SCH (10:20)
[2018-07-08] MEDS: PRENATAL VITAMINS W/ FOLIC ACID TABLET (FP) PO SCH (10:20)
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
[2018-07-08] MEDS: CYCLOBENZAPRINE HCL 5 MG TABLET PO PRN (16:25)
[2018-07-08] MEDS: BACITRACIN 0.9 GM PACKET TP SCH (16:25)
[2018-07-08] MEDS ORDERED: traZODone HCL 50 MG TABLET (FP) PO SCH (22:00)
[2018-07-08] MEDS: THIAMINE HCL 100 MG TABLET (FP) PO SCH (22:33)
[2018-07-08] MEDS: traZODone HCL 50 MG TABLET (FP) PO SCH (22:33)
[2018-07-08] MEDS: hydrOXYzine PAMOATE 50 MG CAPSULE (FP) PO PRN (22:34)
[2018-07-08] MEDS: MELATONIN 5 MG TABLETS PO PRN (22:34)
[2018-07-09] MEDS ORDERED: METHADONE HCL 10 MG TABLET (FOR DETOX USE ONLY) PO ONE (10:00)
--- NOTE | 2018-07-09 10:32 | PN ---
BHS Progress Note (SOAP) Subjective: feeling better less sweat no body aches no gi distress no tremor social with peers in day room discuss aftercare with staff Objective: 07/09/18 10:31 Vital Signs Temperature 97.1 F L 07/09/18 09:22 Pulse Rate 67 07/09/18 09:22 Respiratory Rate 18 07/09/18 09:22 Blood Pressure 114/68 07/09/18 09:22 O2 Sat by Pulse Oximetry (%) Laboratory Last Values WBC 6.5 K/mm3 (4.0-10.0) 07/08/18 07:00 RBC 4.83 M/mm3 (4.00-5.60) 07/08/18 07:00 Hgb 13.2 GM/dL (11.7-16.9) 07/08/18 07:00 Hct 38.5 % (35.4-49) 07/08/18 07:00 MCV 79.8 fl (80-96) L 07/08/18 07:00 MCH 27.4 pg (25.7-33.7) 07/08/18 07:00 MCHC 34.3 g/dl (32.0-35.9) 07/08/18 07:00 RDW 14.5 % (11.9-15.9) 07/08/18 07:00 Plt Count 238 K/MM3 (134-434) 07/08/18 07:00 MPV 9.0 fl (7.5-11.1) 07/08/18 07:00 Absolute Neuts (auto) 2.2 K/mm3 (1.5-8.0) 07/08/18 07:00 Neutrophils % 33.2 % (42.8-82.8) L 07/08/18 07:00 Lymphocytes % 52.3 % (8-40) H 07/08/18 07:00 Monocytes % 7.6 % (3.8-10.2) 07/08/18 07:00 Eosinophils % 6.3 % (0-4.5) H 07/08/18 07:00 Basophils % 0.6 % (0-2.0) 07/08/18 07:00 Nucleated RBC % 0 % (0-0) 07/08/18 07:00 Sodium 137 mmol/L (136-145) 07/06/18 07:40 Potassium 3.8 mmol/L (3.5-5.1) 07/06/18 07:40 Chloride 103 mmol/L (98-107) 07/06/18 07:40 Carbon Dioxide 26 mmol/L (21-32) 07/06/18 07:40 Anion Gap 8 MMOL/L (8-16) 07/06/18 07:40 BUN 16 mg/dL (7-18) 07/06/18 07:40 Creatinine 1.0 mg/dL (0.55-1.3) 07/06/18 07:40 Creat Clearance w eGFR > 60 (>60) 07/06/18 07:40 Random Glucose 83 mg/dL (74-106) 07/06/18 07:40 Calcium 9.3 mg/dL (8.5-10.1) 07/06/18 07:40 Total Bilirubin 0.5 mg/dL (0.2-1) 07/08/18 07:00 AST 16 U/L (15-37) 07/06/18 07:40 ALT 23 U/L (13-61) 07/06/18 07:40 Alkaline Phosphatase 103 U/L (45-117) 07/06/18 07:40 Total Protein 7.8 g/dl (6.4-8.2) 07/06/18 07:40 Albumin 4.3 g/dl (3.4-5.0) 07/06/18 07:40 Urine Color Yellow 07/06/18 08:50 Urine Appearance Turbid 07/06/18 08:50 Urine pH 6.0 (5.0-8.0) 07/06/18 08:50 Ur Specific [place] 1.033 (1.010-1.035) 07/06/18 08:50 Urine Protein 1+ (NEGATIVE) H 07/06/18 08:50 Urine Glucose (UA) Negative (NEGATIVE) 07/06/18 08:50 Urine Ketones 1+ (NEGATIVE) H 07/06/18 08:50 Urine Blood Negative (NEGATIVE) 07/06/18 08:50 Urine Nitrite Negative (NEGATIVE) 07/06/18 08:50 Urine Bilirubin Negative (<2.0 mg/dL) 07/06/18 08:50 Urine Urobilinogen 4.0 e.u/dl mg/dL (0.2-1.0) 07/06/18 08:50 Ur Leukocyte Esterase Negative (NEGATIVE) 07/06/18 08:50 Urine WBC (Auto) None /hpf (3-5) 07/06/18 08:50 Urine RBC (Auto) None /hpf (0-3) 07/06/18 08:50 Urine Mucus Many 07/06/18 08:50 RPR Titer Nonreactive (NONREACTIVE) 07/06/18 07:40 lab noted Assessment: 07/09/18 10:32 mild withdrawal sx Plan: medically supervised detox
[2018-07-09] MEDS: BACITRACIN 0.9 GM PACKET TP SCH (10:55)
[2018-07-09] MEDS: PRENATAL VITAMINS W/ FOLIC ACID TABLET (FP) PO SCH (10:55)
[2018-07-09] MEDS: NICOTINE 21 MG/24 HOURS TOPICAL PATCH TD SCH (10:55)
[2018-07-09] MEDS: CYCLOBENZAPRINE HCL 5 MG TABLET PO PRN ×2 (11:03→20:56)
[2018-07-09] MEDS: hydrOXYzine PAMOATE 50 MG CAPSULE (FP) PO PRN ×3 (11:03→20:56)
[2018-07-09] MEDS: NICOTINE POLACRILEX 2 MG GUM BC PRN (20:56)
[2018-07-09 21:04] LABS: URINE APPEARANCE TURBID; URINE BILIRUBIN NEGATIVE (<2.0 mg/dL); URINE COLOR AMBER; URINE GLUCOSE (UA) NEGATIVE (NEGATIVE); URINE KETONE TRACE (NEGATIVE); URINE LEUK ESTERASE NEGATIVE (NEGATIVE); URINE NITRITE NEGATIVE (NEGATIVE); URINE PROTEIN NEGATIVE (NEGATIVE); URINE UROBILINOGEN NEGATIVE mg/dL (0.2-1.0)
[2018-07-09] MEDS: MELATONIN 5 MG TABLETS PO PRN (22:23)
[2018-07-09] MEDS: traZODone HCL 50 MG TABLET (FP) PO SCH (22:23)
[2018-07-09] MEDS: THIAMINE HCL 100 MG TABLET (FP) PO SCH (22:23)
[2018-07-10] MEDS ORDERED: METHADONE HCL 5 MG TABLET (FOR DETOX USE ONLY) PO ONE (06:00)
[2018-07-10 09:13] VITALS: BP 101/62; PULSE 71; TEMP 98.4
[2018-07-10] MEDS: BACITRACIN 0.9 GM PACKET TP SCH (09:53)
[2018-07-10] MEDS: hydrOXYzine PAMOATE 50 MG CAPSULE (FP) PO PRN (09:53)
[2018-07-10] MEDS: PRENATAL VITAMINS W/ FOLIC ACID TABLET (FP) PO SCH (09:53)
[2018-07-10] MEDS: NICOTINE 21 MG/24 HOURS TOPICAL PATCH TD SCH (09:53)
--- NOTE | 2018-07-10 11:48 | DS ---
[facility] Detox Discharge Summary Admission Date: 07/05/18 Discharge Date: 07/10/18 - History Present History: Opioid Dependence - Physical Exam Results Vital Signs: Vital Signs Temperature 98.4 F 07/10/18 09:12 Pulse Rate 71 07/10/18 09:12 Respiratory Rate 18 07/10/18 09:12 Blood Pressure 101/62 07/10/18 09:12 O2 Sat by Pulse Oximetry (%) Pertinent Admission Physical Exam Findings: PATIENT COMPLETED DETOX WITHOUT ADVERSE EVENT. CLINICALLY STABLE. DENIES SI/HI. PATIENT ENCOURAGED TO ATTEND GROUP MEETINGS TO PREVENT RELAPSE AND TO SEEK MEDICAL ATTENTION IF WITHDRAWAL SYMPTOMS OCCUR. D/C INSTRUCTIONS PROVIDED TO PATIENT BY STAFF. - Treatment Hospital Course: Detox Protocol Followed, Detoxed Safely, Responded well, Discharged Condition Good - Medication Discharge Medications: Ambulatory Orders Quetiapine Fumarate [Seroquel -] 50 mg PO HS 07/09/18 Sertraline HCl [Zoloft -] 50 mg PO DAILY 07/09/18 - AMA Did Patient Leave Against Medical Advice: No
== END 2018-07-10 11:40 | disposition other institution (70) | DRG 773 ==
LOC: YASAS 19:54 → Y3N 22:31
PROC: HZ2ZZZZ Detoxification Services for Substance Abuse Treatment (ICD-10-PCS; principal; 2018-07-05)
DX: F11.23 Opioid dependence with withdrawal (principal); F17.210 Nicotine dependence, cigarettes, uncomplicated; F41.9 Anxiety disorder, unspecified; F19.24 Other psychoactive substance dependence with psychoactive substance-induced mood disorder; G47.00 Insomnia, unspecified; D72.829 Elevated white blood cell count, unspecified; E80.7 Disorder of bilirubin metabolism, unspecified; R82.90 Unspecified abnormal findings in urine; R63.8 Other symptoms and signs concerning food and fluid intake
CPT/HCPCS: 36415; 80053; 81003; 81015; 82247; 85025; 85027; 86593

== ENCOUNTER 2018-07-10 11:45 | Inpatient (IN) | payer OTHER ==
[2018-07-10] MEDS ORDERED: MAGNESIUM CITRATE 300 ML BOTTLE PO PRN (12:40)
[2018-07-10] MEDS ORDERED: P-EPHED 60MG/TRIPROLIDI 2.5MG TABLET PO PRN (12:40)
[2018-07-10] MEDS ORDERED: MENTHOL/PHENOL 1 EACH UD MM PRN (12:40)
[2018-07-10] MEDS ORDERED: MAG HYDROX/AL HYDROX/SIMETH 30 ML UNIT-DOSE CUP PO PRN (12:40)
[2018-07-10] MEDS ORDERED: guaiFENesin/D-METHORPHAN HB 10 ML UNIT-DOSE CUPS PO PRN (12:40)
[2018-07-10] MEDS ORDERED: MAGNESIUM HYDROX 2400MG/30ML ORAL SUSPENSION 30 ML CUP PO PRN (12:40)
--- NOTE | 2018-07-10 12:42 | HP ---
[facility] Re[facility] Assess/Revision - Admission History Admitted to Rehab from: [facility] [place] - Vital signs Vital Signs: Vital Signs Period Temp Pulse Resp BP Sys/Schmidt Pulse Ox Last 24 Hr 97.7 F 84 18 111/59 - Findings Detox History & Physical reviewed: Yes Concur with findings: Yes Inpatient Rehab Admission - Initial Determination Are CD services needed?: Yes Free of communicable disease: Yes Not in need of hospitalization: Yes - Rehab Admission Criteria Previous failed treatment: Yes Poor recovery environment: Yes Comorbidities: Yes Lacks judgement: No Patient is meeting Inpatient Rehab admission criteria:: Yes
--- NOTE | 2018-07-10 13:55 | HP ---
Psychiatrist Admission - Data Date of interview: 07/10/18 Admission source: 3N Identifying data: This is the first [facility] admission for this 22 years old single male, unemployed with no source of income, domiciled Medical History: Patient denies medical problems. History of orthosurgery for fracture of left knee (hardware in place). Smokes cigarettes 1 ppd Psychiatric History: Reports receiving treatment for depression, anxiety and insomnia from October 2017 to Feb [address] Bill Boyd, a psychiatrist [place] that he was prescribed Klonopin, Zoloft and Ambien. Denies previous psychiatric hospitalization or suicidal attempt. At present, reports feeling depressed, anxious and sleeping poorly. Physical/Sexual Abuse/Trauma History: Denies history of emotional, physical or sexual abuse as well as DV relationship Additional Comment: Reports history of one previous felony arrest on charges of drug and gun possession Vital Signs: Vital Signs - 24 hr 07/10/18 11:54 Temperature 97.7 F Pulse Rate 84 Respiratory 18 Rate Blood Pressure 111/59 L Allergies/Adverse Reactions: Allergies Allergy/AdvReac Type Severity Reaction Status Date / Time No Known Allergies Allergy Verified 07/05/18 22:01 Date of last physical exam: 07/05/18 Concur with the findings of this exam: Yes - Substance Abuse/Tx History Hx Alcohol Use: No Hx Substance Use: Yes Substance Use Type: Heroin (Started using heroin at age 22, consumes one gram daily. Last used on 07/02/18) Hx Substance Use Treatment: Yes (2 previous inpt detox @ [facility]) Mental Status Exam - Mental Status Exam Alert and Oriented to: Time, Place, Person Cognitive Function: Fair Patient Appearance: Well Groomed Mood: Depressed, Anxious Affect: Appropriate Patient Behavior: Cooperative Speech Pattern: Clear Voice Loudness: Normal Thought Process: Intact, Goal Oriented Thought Disorder: Not Present Hallucinations: Denies Suicidal Ideation: Denies Homicidal Ideation: Denies Insight/Judgement: Fair Sleep: Poorly Appetite: Good Muscle strength/Tone: Normal Gait/Station: Normal Psychiatric Findings - Problem List (Parkman 1, 2,3) (1) Opioid dependence Current Visit: Yes Status: Acute (2) Nicotine dependence Current Visit: No Status: Chronic Qualifiers: Nicotine product type: cigarettes Substance use status: uncomplicated Qualified Code(s): F17.210 - Nicotine dependence, cigarettes, uncomplicated (3) Substance induced mood disorder Current Visit: Yes Status: Acute (4) Substance-induced sleep disorder Current Visit: Yes Status: Acute - Initial Treatment Plan Initial Treatment Plan: 1) Start Belsomra 10 mg po HS prn for insomnia. 2) Monitor progress
[2018-07-10] MEDS: THIAMINE HCL 100 MG TABLET (FP) PO SCH (21:22)
[2018-07-10] MEDS: hydrOXYzine PAMOATE 50 MG CAPSULE (FP) PO PRN (21:24)
[2018-07-10] MEDS: CYCLOBENZAPRINE HCL 5 MG TABLET PO PRN (21:24)
[2018-07-10] MEDS: MELATONIN 5 MG TABLETS PO PRN (23:30)
[2018-07-10] MEDS: SUVOREXANT 10 MG TABLET PO PRN (23:37)
[2018-07-11] MEDS: BACITRACIN 0.9 GM PACKET TP SCH (10:32)
[2018-07-11] MEDS: hydrOXYzine PAMOATE 50 MG CAPSULE (FP) PO PRN ×2 (10:32→19:55)
[2018-07-11] MEDS: CYCLOBENZAPRINE HCL 5 MG TABLET PO PRN (10:32)
[2018-07-11] MEDS: PRENATAL VITAMINS W/ FOLIC ACID TABLET (FP) PO SCH (10:32)
[2018-07-11] MEDS: NICOTINE 14 MG/24 HOURS TOPICAL PATCH TD SCH (10:33)
[2018-07-11] MEDS ORDERED: FLU VACCINE QUAD 60 MCG/0.5 ML (MDV 18-19) IM ONE (12:00)
[2018-07-11] MEDS: IBUPROFEN 400 MG TABLET (FP) PO PRN (19:55)
[2018-07-11] MEDS: THIAMINE HCL 100 MG TABLET (FP) PO SCH (21:25)
[2018-07-11] MEDS: SUVOREXANT 10 MG TABLET PO PRN (21:25)
[2018-07-11] MEDS: NICOTINE POLACRILEX 2 MG GUM BUC PRN (21:25)
[2018-07-11] MEDS: MELATONIN 5 MG TABLETS PO PRN (21:25)
[2018-07-12] MEDS: BACITRACIN 0.9 GM PACKET TP SCH (11:01)
[2018-07-12] MEDS: NICOTINE 14 MG/24 HOURS TOPICAL PATCH TD SCH (11:01)
[2018-07-12] MEDS: PRENATAL VITAMINS W/ FOLIC ACID TABLET (FP) PO SCH (11:02)
[2018-07-12] MEDS: hydrOXYzine PAMOATE 50 MG CAPSULE (FP) PO PRN ×2 (13:09→21:39)
[2018-07-12] MEDS: cloNIDine HCL 0.1 MG TABLET PO PRN (14:07)
[2018-07-12] MEDS: CYCLOBENZAPRINE HCL 5 MG TABLET PO PRN ×2 (16:42→21:38)
[2018-07-12] MEDS: THIAMINE HCL 100 MG TABLET (FP) PO SCH (21:39)
[2018-07-12] MEDS: SUVOREXANT 10 MG TABLET PO PRN (21:40)
[2018-07-12] MEDS: NICOTINE POLACRILEX 2 MG GUM BUC PRN (21:45)
[2018-07-13] MEDS: NICOTINE 14 MG/24 HOURS TOPICAL PATCH TD SCH (10:19)
[2018-07-13] MEDS: BACITRACIN 0.9 GM PACKET TP SCH (10:19)
[2018-07-13] MEDS: PRENATAL VITAMINS W/ FOLIC ACID TABLET (FP) PO SCH (10:19)
[2018-07-13] MEDS: hydrOXYzine PAMOATE 50 MG CAPSULE (FP) PO PRN ×2 (10:19→19:22)
[2018-07-13] MEDS: IBUPROFEN 400 MG TABLET (FP) PO PRN ×2 (10:20→19:25)
[2018-07-13] MEDS: CYCLOBENZAPRINE HCL 5 MG TABLET PO PRN ×2 (10:20→19:24)
--- NOTE | 2018-07-13 16:32 | PN ---
S Progress Note Note: Psychiatric nurse practitioner note: Belsomra 10mg renewed for three days. Verbal consent given.
[2018-07-13] MEDS: SUVOREXANT 10 MG TABLET PO PRN (21:43)
[2018-07-13] MEDS: cloNIDine HCL 0.1 MG TABLET PO PRN (21:43)
[2018-07-13] MEDS: NICOTINE POLACRILEX 2 MG GUM BUC PRN (21:44)
[2018-07-13] MEDS: MELATONIN 5 MG TABLETS PO PRN (21:44)
[2018-07-13] MEDS: THIAMINE HCL 100 MG TABLET (FP) PO SCH (21:45)
[2018-07-14] MEDS: CYCLOBENZAPRINE HCL 5 MG TABLET PO PRN ×3 (06:47→21:34)
[2018-07-14] MEDS: IBUPROFEN 400 MG TABLET (FP) PO PRN ×2 (06:47→17:45)
[2018-07-14] MEDS: hydrOXYzine PAMOATE 50 MG CAPSULE (FP) PO PRN ×3 (06:47→17:45)
[2018-07-14] MEDS: PRENATAL VITAMINS W/ FOLIC ACID TABLET (FP) PO SCH (10:24)
[2018-07-14] MEDS: NICOTINE POLACRILEX 2 MG GUM BUC PRN (10:24)
[2018-07-14] MEDS: BACITRACIN 0.9 GM PACKET TP SCH (10:24)
[2018-07-14] MEDS: NICOTINE 14 MG/24 HOURS TOPICAL PATCH TD SCH (10:24)
[2018-07-14] MEDS: cloNIDine HCL 0.1 MG TABLET PO PRN ×2 (10:26→21:33)
[2018-07-14] MEDS: SUVOREXANT 10 MG TABLET PO PRN (21:33)
[2018-07-14] MEDS: MELATONIN 5 MG TABLETS PO PRN (21:34)
[2018-07-14] MEDS: THIAMINE HCL 100 MG TABLET (FP) PO SCH (21:35)
[2018-07-15] MEDS: NICOTINE 14 MG/24 HOURS TOPICAL PATCH TD SCH (10:29)
[2018-07-15] MEDS: BACITRACIN 0.9 GM PACKET TP SCH (10:29)
[2018-07-15] MEDS: PRENATAL VITAMINS W/ FOLIC ACID TABLET (FP) PO SCH (10:29)
[2018-07-15] MEDS: hydrOXYzine PAMOATE 50 MG CAPSULE (FP) PO PRN ×2 (10:32→21:29)
[2018-07-15] MEDS: CYCLOBENZAPRINE HCL 5 MG TABLET PO PRN (10:32)
[2018-07-15] MEDS: THIAMINE HCL 100 MG TABLET (FP) PO SCH (21:25)
[2018-07-15] MEDS: CYCLOBENZAPRINE HCL 10 MG TABLET (FP) PO SCH (21:26)
[2018-07-15] MEDS: SUVOREXANT 10 MG TABLET PO PRN (21:28)
[2018-07-15] MEDS: MELATONIN 5 MG TABLETS PO PRN (21:29)
[2018-07-15] MEDS: cloNIDine HCL 0.1 MG TABLET PO PRN (21:58)
[2018-07-16] MEDS: CYCLOBENZAPRINE HCL 10 MG TABLET (FP) PO SCH ×3 (06:15→21:23)
[2018-07-16] MEDS: cloNIDine HCL 0.1 MG TABLET PO PRN ×2 (06:17→21:24)
[2018-07-16] MEDS: hydrOXYzine PAMOATE 50 MG CAPSULE (FP) PO PRN ×4 (06:17→21:23)
[2018-07-16] MEDS: LIDOCAINE VISCOUS 2% ORAL/TOP 20 ML UNIT-DOSE CUP MM PRN ×2 (10:51→23:05)
[2018-07-16] MEDS: PRENATAL VITAMINS W/ FOLIC ACID TABLET (FP) PO SCH (10:51)
[2018-07-16] MEDS: BACITRACIN 0.9 GM PACKET TP SCH (10:51)
[2018-07-16] MEDS: NICOTINE 14 MG/24 HOURS TOPICAL PATCH TD SCH (10:52)
[2018-07-16] MEDS: NICOTINE POLACRILEX 2 MG GUM BUC PRN (15:26)
[2018-07-16] MEDS: MELATONIN 5 MG TABLETS PO PRN (21:23)
[2018-07-16] MEDS: SUVOREXANT 10 MG TABLET PO PRN (21:23)
[2018-07-16] MEDS: THIAMINE HCL 100 MG TABLET (FP) PO SCH (21:23)
[2018-07-16] MEDS ORDERED: PT OWN MED DRAWER 7, Y5N ONE (22:49)
[2018-07-17] MEDS: cloNIDine HCL 0.1 MG TABLET PO PRN ×2 (07:10→19:20)
[2018-07-17] MEDS: hydrOXYzine PAMOATE 50 MG CAPSULE (FP) PO PRN ×3 (07:10→19:20)
[2018-07-17] MEDS: CYCLOBENZAPRINE HCL 10 MG TABLET (FP) PO SCH ×3 (07:10→21:38)
[2018-07-17] MEDS: PRENATAL VITAMINS W/ FOLIC ACID TABLET (FP) PO SCH (09:27)
[2018-07-17] MEDS: BACITRACIN 0.9 GM PACKET TP SCH (09:27)
[2018-07-17] MEDS: NICOTINE 14 MG/24 HOURS TOPICAL PATCH TD SCH (09:27)
[2018-07-17] MEDS: FLUTICASONE PROP 0.05% 16 GM NASAL SPRAY NS SCH (11:53)
[2018-07-17] MEDS: LIDOCAINE VISCOUS 2% ORAL/TOP 20 ML UNIT-DOSE CUP MM PRN (19:21)
[2018-07-17] MEDS: IBUPROFEN 400 MG TABLET (FP) PO PRN (21:38)
[2018-07-17] MEDS: MELATONIN 5 MG TABLETS PO PRN (21:38)
[2018-07-17] MEDS: SUVOREXANT 10 MG TABLET PO PRN (21:38)
[2018-07-17] MEDS: LOPERAMIDE HCL 2 MG CAPSULE PO PRN (21:40)
[2018-07-17] MEDS: THIAMINE HCL 100 MG TABLET (FP) PO SCH (21:59)
[2018-07-18] MEDS: CYCLOBENZAPRINE HCL 10 MG TABLET (FP) PO SCH ×3 (07:15→21:27)
[2018-07-18] MEDS: LOPERAMIDE HCL 2 MG CAPSULE PO PRN ×3 (07:19→23:06)
[2018-07-18] MEDS: PRENATAL VITAMINS W/ FOLIC ACID TABLET (FP) PO SCH (10:31)
[2018-07-18] MEDS: NICOTINE 14 MG/24 HOURS TOPICAL PATCH TD SCH (10:31)
[2018-07-18] MEDS: BACITRACIN 0.9 GM PACKET TP SCH (10:31)
[2018-07-18] MEDS: hydrOXYzine PAMOATE 50 MG CAPSULE (FP) PO PRN ×2 (10:32→21:30)
[2018-07-18] MEDS: FLUTICASONE PROP 0.05% 16 GM NASAL SPRAY NS SCH (10:33)
[2018-07-18] MEDS: THIAMINE HCL 100 MG TABLET (FP) PO SCH (21:27)
[2018-07-18] MEDS: MELATONIN 5 MG TABLETS PO PRN (21:30)
[2018-07-19] MEDS: CYCLOBENZAPRINE HCL 10 MG TABLET (FP) PO SCH ×3 (06:30→21:32)
--- NOTE | 2018-07-19 09:37 | PN ---
Progress Note (short form) - Note Progress Note: 23 y/o m pt with h/o opioid depe. admitted to detox , now in rehab c/o diarhhea x 3 day not assoc with fever , nausea , vomiting . Pt describes diarrhea as green in color. He states about 10 bowel movements/day. The pt reports imodium has not helped . States HCV testing in October 2017 negative . Pt has been drinking fluids. Vital Signs Temperature 98.6 F 07/19/18 06:54 Pulse Rate 119 H 07/19/18 06:54 Respiratory Rate 18 07/19/18 06:54 Blood Pressure 122/73 07/19/18 06:54 O2 Sat by Pulse Oximetry (%) Pt aox3 in nad ambulating oral mucosa dry abd - w/o scars soft , nontender , BS + neuro- intact Impression - Diarrhea unknown likely viral PLan - bismuth bid prn increase fluids Brat diet cbc, sma7, sgot, sgpt , bilirubin hep profile stool cx
[2018-07-19] MEDS: BACITRACIN 0.9 GM PACKET TP SCH (10:12)
[2018-07-19] MEDS: FLUTICASONE PROP 0.05% 16 GM NASAL SPRAY NS SCH (10:12)
[2018-07-19] MEDS: NICOTINE 14 MG/24 HOURS TOPICAL PATCH TD SCH (10:13)
[2018-07-19] MEDS: PRENATAL VITAMINS W/ FOLIC ACID TABLET (FP) PO SCH (10:13)
[2018-07-19] MEDS: hydrOXYzine PAMOATE 50 MG CAPSULE (FP) PO PRN (10:21)
[2018-07-19] MEDS: cloNIDine HCL 0.1 MG TABLET PO PRN (10:21)
[2018-07-19] MEDS: BISMUTH SUBSALICYLATE 262 MG/15 ML BTL PO PRN ×2 (13:20→20:55)
[2018-07-19 15:14] LABS: MCH 25.6 pg (25.7-33.7); MCHC 31.2 g/dl (32.0-35.9)
[2018-07-19 15:17] LABS: BASO % 0.1 % (0-2.0); HEMATOCRIT 42.5 % (35.4-49); HEMOGLOBIN 13.3 GM/dL (11.7-16.9); LYMPH % 16.5 % (8-40); MEAN CELL VOLUME 82.1 fl (80-96); MEAN PLT VOLUME 7.7 fl (7.5-11.1); MONO % 6.7 % (3.8-10.2); NEUT % 74.7 % (42.8-82.8); PLATELET COUNT 295 K/MM3 (134-434); RBC 5.18 M/mm3 (4.00-5.60); RDW 15.5 % (11.9-15.9); WHITE BLOOD COUNT 12.3 K/mm3 (4.0-10.0)
[2018-07-19 15:34] LABS: ANION GAP 8 MMOL/L (8-16); BILIRUBIN,TOTAL 1.2 mg/dL (0.2-1); BLOOD UREA NITROGEN 13 mg/dL (7-18); CALCIUM 8.8 mg/dL (8.5-10.1); CHLORIDE 100 mmol/L (98-107); CO2 26 mmol/L (21-32); CREATININE 0.9 mg/dL (0.55-1.3); GLUCOSE,RANDOM 97 mg/dL (74-106); POTASSIUM 3.9 mmol/L (3.5-5.1); SGOT/AST 20 U/L (15-37); SODIUM 134 mmol/L (136-145)
[2018-07-19 21:19] LABS: BILIRUBIN,DIRECT 0.3 mg/dL (0.0-0.2)
[2018-07-19] MEDS: THIAMINE HCL 100 MG TABLET (FP) PO SCH (21:32)
[2018-07-19] MEDS: MELATONIN 5 MG TABLETS PO PRN (21:32)
[2018-07-19] MEDS: SUVOREXANT 10 MG TABLET PO PRN (21:33)
[2018-07-19] MEDS: ACETAMINOPHEN 325 MG TABLET (FP) PO PRN (23:38)
[2018-07-20 06:08] LABS: HBSAG SCREEN Negative (Negative); HEP B CORE AB, TOT Negative (Negative)
[2018-07-20] MEDS: CYCLOBENZAPRINE HCL 10 MG TABLET (FP) PO SCH ×3 (06:32→21:39)
[2018-07-20] MEDS: BACITRACIN 0.9 GM PACKET TP SCH (09:54)
[2018-07-20] MEDS: FLUTICASONE PROP 0.05% 16 GM NASAL SPRAY NS SCH (09:54)
[2018-07-20] MEDS: NICOTINE 14 MG/24 HOURS TOPICAL PATCH TD SCH (09:55)
[2018-07-20] MEDS: PRENATAL VITAMINS W/ FOLIC ACID TABLET (FP) PO SCH (09:55)
[2018-07-20] MEDS: LIDOCAINE VISCOUS 2% ORAL/TOP 20 ML UNIT-DOSE CUP MM PRN (20:52)
[2018-07-20] MEDS: IBUPROFEN 400 MG TABLET (FP) PO PRN (20:52)
[2018-07-20] MEDS: THIAMINE HCL 100 MG TABLET (FP) PO SCH (21:39)
[2018-07-20] MEDS: SUVOREXANT 10 MG TABLET PO PRN (21:41)
[2018-07-21] MEDS: CYCLOBENZAPRINE HCL 10 MG TABLET (FP) PO SCH ×3 (06:30→22:03)
[2018-07-21] MEDS: IBUPROFEN 400 MG TABLET (FP) PO PRN ×3 (06:31→21:36)
[2018-07-21] MEDS: BACITRACIN 0.9 GM PACKET TP SCH (10:00)
[2018-07-21] MEDS: NICOTINE 14 MG/24 HOURS TOPICAL PATCH TD SCH (10:00)
[2018-07-21] MEDS: PRENATAL VITAMINS W/ FOLIC ACID TABLET (FP) PO SCH (10:00)
[2018-07-21] MEDS: FLUTICASONE PROP 0.05% 16 GM NASAL SPRAY NS SCH (10:01)
[2018-07-21] MEDS: ACETAMINOPHEN 325 MG TABLET (FP) PO PRN (17:35)
[2018-07-21] MEDS: SUVOREXANT 10 MG TABLET PO PRN (21:36)
[2018-07-21] MEDS: THIAMINE HCL 100 MG TABLET (FP) PO SCH (21:37)
[2018-07-22] MEDS: hydrOXYzine PAMOATE 50 MG CAPSULE (FP) PO PRN ×2 (00:47→18:11)
[2018-07-22] MEDS: CYCLOBENZAPRINE HCL 10 MG TABLET (FP) PO SCH ×3 (06:36→21:34)
[2018-07-22] MEDS: BACITRACIN 0.9 GM PACKET TP SCH (10:13)
[2018-07-22] MEDS: NICOTINE 14 MG/24 HOURS TOPICAL PATCH TD SCH (10:13)
[2018-07-22] MEDS: PRENATAL VITAMINS W/ FOLIC ACID TABLET (FP) PO SCH (10:13)
[2018-07-22] MEDS: FLUTICASONE PROP 0.05% 16 GM NASAL SPRAY NS SCH (10:13)
--- NOTE | 2018-07-22 10:52 | PN ---
[facility] Progress Note Note: PATIENT C/O DRY EYES AND TOOTHACHE. REFUSED ORAGEL AND SAID HE WILL WAIT TO SEE DENTIST ONCE DISCHARGE THIS WEEK. HOWEVER, PATIENT DOES REPORT BURNING AND DRYNESS TO EYES, EXAM +PERRLA, EOMS INTACT, NO DISCHARGE PRESENT. MILD REDNESS TO CONJUNCTIVAE BILATERALLY. WILL ORDER ARTIFICIAL TEARS AND CONTINUE TO MONITOR CLINICALLY.
[2018-07-22] MEDS: ACETAMINOPHEN 325 MG TABLET (FP) PO PRN (14:47)
[2018-07-22] MEDS: THIAMINE HCL 100 MG TABLET (FP) PO SCH (21:34)
[2018-07-22] MEDS: IBUPROFEN 400 MG TABLET (FP) PO PRN (21:35)
[2018-07-22] MEDS: SUVOREXANT 10 MG TABLET PO PRN (21:37)
[2018-07-23] MEDS: CYCLOBENZAPRINE HCL 10 MG TABLET (FP) PO SCH ×3 (07:18→21:35)
[2018-07-23] MEDS: NICOTINE 14 MG/24 HOURS TOPICAL PATCH TD SCH (10:04)
[2018-07-23] MEDS: PRENATAL VITAMINS W/ FOLIC ACID TABLET (FP) PO SCH (10:04)
[2018-07-23] MEDS: FLUTICASONE PROP 0.05% 16 GM NASAL SPRAY NS SCH (10:04)
[2018-07-23] MEDS: BACITRACIN 0.9 GM PACKET TP SCH (10:04)
[2018-07-23] MEDS: hydrOXYzine PAMOATE 50 MG CAPSULE (FP) PO PRN ×3 (10:05→21:36)
[2018-07-23] MEDS: cloNIDine HCL 0.1 MG TABLET PO PRN ×2 (10:05→21:36)
[2018-07-23] MEDS: THIAMINE HCL 100 MG TABLET (FP) PO SCH (21:35)
[2018-07-23] MEDS: SUVOREXANT 10 MG TABLET PO PRN (21:36)
[2018-07-23] MEDS: IBUPROFEN 400 MG TABLET (FP) PO PRN (21:37)
[2018-07-24] MEDS: CYCLOBENZAPRINE HCL 10 MG TABLET (FP) PO SCH ×3 (06:18→21:36)
[2018-07-24] MEDS: BACITRACIN 0.9 GM PACKET TP SCH (10:04)
[2018-07-24] MEDS: FLUTICASONE PROP 0.05% 16 GM NASAL SPRAY NS SCH (10:04)
[2018-07-24] MEDS: NICOTINE 14 MG/24 HOURS TOPICAL PATCH TD SCH (10:05)
[2018-07-24] MEDS: PRENATAL VITAMINS W/ FOLIC ACID TABLET (FP) PO SCH (10:05)
[2018-07-24] MEDS: hydrOXYzine PAMOATE 50 MG CAPSULE (FP) PO PRN ×3 (10:05→21:36)
[2018-07-24] MEDS: THIAMINE HCL 100 MG TABLET (FP) PO SCH (21:36)
[2018-07-24] MEDS: cloNIDine HCL 0.1 MG TABLET PO PRN (21:39)
--- NOTE | 2018-07-25 06:26 | PN ---
Psychiatric Progress Note Vital Signs: Vital Signs Period Temp Pulse Resp BP Sys/Schmidt Pulse Ox Last 24 Hr 98.6 F 82-89 17-18 115-117/70-74 Date of Session: 07/25/18 Chief Complaint:: Discharge Note HPI: Patient addressing Opioid Dependence comorbid with Nicotine Dependence, Substance-Induced Mood Disorder and Substance-Induced Sleep Disorder Current Medications: Active Medications Generic Name Dose Route Start Last Admin Trade Name Freq PRN Reason Stop Dose Admin Acetaminophen 650 mg 07/10/18 12:40 07/22/18 14:47 Tylenol - PO 650 mg Q4H PRN Administration FEVER Al Hydroxide/Mg Hydroxide 30 ml 07/10/18 12:40 Mylanta Oral Suspension - PO Q6H PRN DYSPEPSIA Bacitracin 0.9 gm 07/11/18 10:00 07/24/18 10:04 Bacitracin - TP Not Given DAILY VINI Bismuth Subsalicylate 30 ml 07/19/18 09:20 07/19/18 20:55 Pepto-Bismol Liquid - PO 30 ml BID PRN Administration DIARRHEA Clonidine 0.1 mg 07/11/18 11:35 07/24/18 21:39 Catapres - PO 0.1 mg BID PRN Administration WITHDRAWAL(CONT SUBST) Cyclobenzaprine HCl 10 mg 07/15/18 22:00 07/24/18 21:36 Flexeril - PO 10 mg TID VINI Administration Eucalyptus/Menthol/Phenol/Sorbitol 1 each 07/10/18 12:40 07/18/18 07:16 Cepastat Lozenge - MM 1 each Q4H PRN Administration SORE THROAT Fluticasone Propionate 2 spray 07/17/18 10:00 07/24/18 10:04 Flonase - NS Not Given DAILY VINI Guaifenesin 10 ml 07/10/18 12:40 Robitussin Dm - PO Q6H PRN COUGH Hydroxyzine Pamoate 50 mg 07/10/18 12:40 07/24/18 21:36 Vistaril - PO 50 mg Q4H PRN Administration AGITATION Ibuprofen 400 mg 07/10/18 12:40 07/23/18 21:37 Motrin - PO 400 mg Q6H PRN Administration Pain Level 4-6 Lidocaine HCl 20 ml 07/15/18 14:18 07/20/18 20:52 Xylocaine 2% Viscous Oral - MM 20 ml Q3H PRN Administration ORAL PAIN/MOUTH SORES Loperamide HCl 4 mg 07/10/18 12:40 07/18/18 23:06 Imodium - PO 4 mg Q6H PRN Administration DIARRHEA Magnesium Citrate 300 ml 07/10/18 12:40 Citroma - PO Q48H PRN CONSTIPATION Magnesium Hydroxide 30 ml 07/10/18 12:40 Milk Of Magnesia - PO DAILY PRN CONSTIPATION Nicotine 14 mg 07/11/18 10:00 07/24/18 10:05 Nicoderm Patch - TD 14 mg DAILY VINI Administration Nicotine Polacrilex 2 mg 07/10/18 20:28 07/16/18 15:26 Nicorette Gum - BUC 2 mg Q2H PRN Administration NICOTINE REPLACEMENT RX Multivit/Folic Acid/Iron 1 tab 07/11/18 10:00 07/24/18 10:05 Vitamins (Sjr) - PO 1 tab DAILY VINI Administration Pseudoephedrine/Triprolidine 1 combo 07/10/18 12:40 07/17/18 07:10 Actifed - PO 1 combo TID PRN Administration NASAL CONGESTION Thiamine HCl 100 mg 07/10/18 22:00 07/24/18 21:36 Vitamin B1 - PO 100 mg HS VINI Administration Current Side Effect: No Lab tests ordered: Yes Lab tests reviewed: Yes Provider note:: Patient has completed this program today. He has met his treatment goals and will continue to address his issues in outpatient treatment at [facility] OT. Told functional tester typewriters that from his participation in this program, he has learned the importance of making meetings and get a sponsor. He is stable for discharge today Total face to face time:: 35 Mental Status Exam - Mental Status Exam Alert and Oriented to: Time, Place, Person Cognitive Function: Fair Patient Appearance: Well Groomed Mood: Hopeful, Euthymic Affect: Appropriate Patient Behavior: Cooperative Speech Pattern: Clear Voice Loudness: Normal Thought Process: Intact, Goal Oriented Thought Disorder: Not Present Hallucinations: Denies Suicidal Ideation: Denies Homicidal Ideation: Denies Insight/Judgement: Fair Sleep: Fair Appetite: Good Muscle strength/Tone: Normal Gait/Station: Normal Psychiatric Treatment Plan - Problem List (1) Opioid dependence Current Visit: Yes Qualifiers: Substance use status: uncomplicated Qualified Code(s): F11.20 - Opioid dependence, uncomplicated (2) Nicotine dependence Current Visit: No Qualifiers: Nicotine product type: cigarettes Substance use status: uncomplicated Qualified Code(s): F17.210 - Nicotine dependence, cigarettes, uncomplicated (3) Substance induced mood disorder Current Visit: Yes (4) Substance-induced sleep disorder Current Visit: Yes Initial treatment plan: Patient is discharged today and referred to [facility] for outpatient treatment
[2018-07-25] MEDS: CYCLOBENZAPRINE HCL 10 MG TABLET (FP) PO SCH (06:55)
[2018-07-25 07:04] VITALS: BP 125/78; PULSE 78; TEMP 97.8
[2018-07-25] MEDS: PRENATAL VITAMINS W/ FOLIC ACID TABLET (FP) PO SCH (09:17)
[2018-07-25] MEDS: BACITRACIN 0.9 GM PACKET TP SCH (09:17)
[2018-07-25] MEDS: NICOTINE 14 MG/24 HOURS TOPICAL PATCH TD SCH (09:17)
[2018-07-25] MEDS: hydrOXYzine PAMOATE 50 MG CAPSULE (FP) PO PRN (09:18)
[2018-07-25] MEDS: FLUTICASONE PROP 0.05% 16 GM NASAL SPRAY NS SCH (09:20)
== END 2018-07-25 10:20 | disposition home or self-care (01) | DRG 772 ==
LOC: YASAS 11:45 → Y3W 11:46 → Y5N 07-17 11:09
PROVIDERS: ADMIT Psychiatry & Neurology Psychiatry; ATTEND Psychiatry & Neurology Psychiatry
PROC: HZ42ZZZ Group Counseling for Substance Abuse Treatment, Cognitive-Behavioral (ICD-10-PCS; principal; 2018-07-10)
DX: F11.20 Opioid dependence, uncomplicated (principal); F17.210 Nicotine dependence, cigarettes, uncomplicated; F19.24 Other psychoactive substance dependence with psychoactive substance-induced mood disorder; F19.282 Other psychoactive substance dependence with psychoactive substance-induced sleep disorder; F41.9 Anxiety disorder, unspecified; H04.129 Dry eye syndrome of unspecified lacrimal gland; R19.7 Diarrhea, unspecified
CPT/HCPCS: 36415; 80048; 82247; 82248; 84450; 85025; 86704; 86706; 86708; 86803; 87045; 87046; 87340; 90688; G0008; J0735

== ENCOUNTER 2020-04-04 15:28 | Inpatient (IN) | payer OTHER ==
[2020-04-04 15:40] VITALS: BMI 35.9
--- NOTE | 2020-04-04 16:08 | PDOC ---
Attending Attestation - Resident Resident Name: Rio Almanzar - HPI HPI: 04/04/20 16:57 Pt presents to the ED complaining of generalized fatigue, anosmia, shortness of breath and pleuritic chest pain since 03/28. Patient reports that he was at a libertarian without wearing a mask on 03/27. 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 Denies cough, nausea or vomiting. Denies known sick contacts. - Physicial Exam PE: 04/04/20 16:57 Agree with resident exam. Patient is alert and oriented and in no acute distress. Lungs are clear. CV: rrr, tachycardic no murmurs. Abdomen: soft, non tender, non distended no guarding or rebound. - Medical Decision Making 04/04/20 17:23 Pt presents to the ED complaining of shortness of breath, generalized malaise, anosmia and pleurtic chest pain. Given his history and complaints, COVID is extremely high on the differential. COVID labs and COVID swab sent. Patient understands that he will be required to self isolate if discharged. Also concern for PE, given tachycardia. Will check CT PE. Will monitor oxygen saturation while ambulating to evaluate for desaturation. 04/04/20 17:38 Discharge - Discharge Information Problems reviewed: Yes Clinical Impression/Diagnosis: Hypoxia, COVID-19 Condition: Improved Disposition: HOME - Follow up/Referral - Patient Discharge Instructions - Post Discharge Activity
[2020-04-04] MEDS ORDERED: SODIUM CHLORIDE 0.9% 500 ML INFUS.BAG IV ONE (16:14)
[2020-04-04] MEDS ORDERED: DEXAMETHASONE SOD PHOSPHATE 10 MG/1 ML VIAL IVPUSH ONE (16:14)
--- NOTE | 2020-04-04 16:14 | PDOC ---
History of Present Illness - General Chief Complaint: Shortness of Breath Stated Complaint: FEVER/SOB Time Seen by Provider: 04/04/20 15:40 History Source: Patient Exam Limitations: No Limitations - History of Present Illness Initial Comments: 04/04/20 16:06 24M PMH opioid dependence on methadone presenting for evaluation of 1 week of severe fatigue, loss of appetite, headache, fevers, and pleuritic chest pain. States he was at a democrat 03/27/20 with very close contact with unmasked people. [place]apello very fatigued walking around the days after the democrat and in the past few days has been in bed sleeping essentially all day. Subjective fevers with diaphoresis. Loss of appetite with poor solid and liquid intake. Denies difficulty breathing. Has occasional productive AM cough o/w no sore throat or runny nose. NKDA. No PMD. Denies smoking or illicit drug use. Endorses social etoh. Past History - Medical History Allergies/Adverse Reactions: Allergies Allergy/AdvReac Type Severity Reaction Status Date / Time No Known Allergies Allergy Verified 04/04/20 15:40 Home Medications: Ambulatory Orders Clonazepam [Klonopin] 1 mg PO BID 04/04/20 Methadone [Dolophine -] 100 mg PO DAILY@0600 04/04/20 Ascorbic Acid [Vitamin C -] 250 mg PO BID #60 tablet 04/06/20 Zinc Sulfate [Orazinc -] 220 mg PO BID #60 capsule 04/06/20 Amoxicillin/Potassium Clav [Augmentin 875-125 Tablet] 1 each PO BID #5 tablet 04/07/20 Apixaban [Eliquis] 5 mg PO BID #42 tablet 04/07/20 Dexamethasone [Decadron -] 6 mg PO DAILY #6 tablet 04/07/20 Anemia: No Asthma: No Cancer: No Cardiac Disorders: No CVA: No COPD: No CHF: No Dementia: No Diabetes: No GI Disorders: No Disorders: No HTN: No Hypercholesterolemia: No Kidney Stones: No Liver Disease: No Seizures: No Thyroid Disease: No - Surgical History Abdominal Surgery: No Appendectomy: No Cardiac Surgery: No Cholecystectomy: No Lung Surgery: No Neurologic Surgery: No Orthopedic Surgery: Yes (L KNEE FX REPAIR WITH HARDWARE) - Reproductive History Testicular Surgery: Yes (left orchiectomy) - Psycho-Social/Smoking History Smoking History: Unknown if ever smoked Have you smoked in the past 12 months: Yes Number of Cigarettes Smoked Daily: 20 Cigars Per Day: 0 'Breaking Loose' booklet given: 07/05/18 Review of Systems - Review of Systems Comments:: 04/10/20 05:19 CONSTITUTIONAL: + subjective fevers, fatigue HEENT: + headaches. + loss sense of taste and smell. Denies lightheadedness, dizziness, changes in vision / hearing, sore throat, rhinorrhea RESP: + occasional productive cough in the AM. Denies SOB CARD: + pleuritic chest pain GI: + loss of appetite Denies N / V / D, abdominal pain : Denies dysuria NEURO: Denies numbness, tingling, weakness MSK: Denies back pain SKIN: Denies rashes *Physical Exam - Vital Signs Last Vital Signs Temp Pulse Resp BP Pulse Ox 98.7 F 134 H 20 110/89 93 L 04/04/20 15:37 04/04/20 15:37 04/04/20 15:37 04/04/20 15:37 04/04/20 15:37 - Physical Exam 04/10/20 05:19 GEN: NAD, pale, AAOx3. HEENT: NC/AT, EOMI, PERRL. Normal voice. Supple neck w/ FROM. CV: S1/S2, RRR, no m/r/g LUNG: Normal WOB, SaO2 93% RA. CTAB, no wheezes, crackles, rales, rhonchi. GI: Soft, ndnt, +BS, no guarding, no rebound. MSK: No obvious deformities of all extremities. SKIN: Warm, dry, no rashes appreciated. PSYCH: Normal mood and affect. NEURO: Moving all extremities well. ED Treatment Course - LABORATORY CBC & Chemistry Diagram: 04/07/20 07:40 04/07/20 07:40 - RADIOLOGY Radiology Studies Ordered: Category Date Time Status CHEST X-RAY PORTABLE* [RAD] Stat Radiology 04/04/20 16:05 Ordered Medical Decision Making - Medical Decision Making 04/10/20 05:20 24M w/ 1 week of fatigue, pleuritic chest pain, subjective fevers, headache, and loss of appetite, taste and smell. SaO2 93% RA w/o respiratory distress. Constellation of symptoms c/w covid-19 - covid labs - cxr - EKG 1623 HR 112, axis and intervals wnl, no TWI, no JESUS/D; aVL low voltage - CTA r/o PE given tachycardia, pleuritic chest pain, and SaO2 93% - will contact [facility] 04/04/20 16:53 attempted to contact [facility], voicemail full. 04/04/20 18:59 ambulatory sat 89-91% pending CTA will sign out to PM team for admission and further management Discharge - Discharge Information Problems reviewed: Yes Clinical Impression/Diagnosis: Hypoxia, COVID-19 Condition: Improved Disposition: HOME - Follow up/Referral - Patient Discharge Instructions - Post Discharge Activity
[2020-04-04] MEDS ORDERED: DEXAMETHASONE SOD PHOSPHATE 10 MG/1 ML VIAL ONE (16:23)
[2020-04-04 17:03] LABS: BASO % 0.4 % (0-2.0); EOS % 0.6 % (0-4.5); HEMATOCRIT 37.1 % (35.4-49); HEMOGLOBIN 12.3 GM/dL (11.7-16.9); LYMPH % 11.4 % (8-40); MCH 26.9 pg (25.7-33.7); MCHC 33.1 g/dl (32.0-35.9); MEAN CELL VOLUME 81.1 fl (80-96); MEAN PLT VOLUME 9.4 fl (7.5-11.1); MONO % 8.3 % (3.8-10.2); NEUT % 79.3 % (42.8-82.8); PLATELET COUNT 278 K/MM3 (134-434); RBC 4.57 M/mm3 (4.00-5.60); RDW 14.4 % (11.9-15.9)
[2020-04-04 17:04] LABS: VENOUS BASE EXCESS 2.7 mmol/L (-2-2); VENOUS O2 SATURATION 70.5 % (70-80); VENOUS PH 7.403 (7.310-7.410)
[2020-04-04 17:10] LABS: INR 1.44 (0.83-1.09); PROTHROMBIN TIME (PATIENT) 17.1 SEC (9.7-13.0)
[2020-04-04 17:13] LABS: ACTIVATED PTT 34.3 SECONDS (25.2-36.5)
[2020-04-04 17:41] LABS: ALBUMIN 2.7 g/dl (3.4-5.0); ALK PHOS 198 U/L (45-117); ANION GAP 9 MMOL/L (8-16); BILIRUBIN,DIRECT 0.4 mg/dL (0.0-0.2); BILIRUBIN,TOTAL 0.5 mg/dL (0.2-1); CALCIUM 8.8 mg/dL (8.5-10.1); CHLORIDE 96 mmol/L (98-107); CO2 27 mmol/L (21-32); CREATININE 0.8 mg/dL (0.55-1.3); GLUCOSE,RANDOM 125 mg/dL (74-106); LDH 244 U/L (87-246); POTASSIUM 3.5 mmol/L (3.5-5.1); SGOT/AST 62 U/L (15-37); SGPT/ALT 96 U/L (13-61); SODIUM 132 mmol/L (136-145); TOT PROT 7.4 g/dl (6.4-8.2)
[2020-04-04 18:22] LABS: ANISOCYTOSIS 1+; MACROCYTOSIS 0; PLATELET ESTIMATE NORMAL
--- NOTE | 2020-04-04 19:29 | PDOC ---
*Physical Exam - Vital Signs Last Vital Signs Temp Pulse Resp BP Pulse Ox 98.7 F 109 H 18 127/82 92 L 04/04/20 15:37 04/04/20 16:58 04/04/20 16:58 04/04/20 16:58 04/04/20 16:58 ED Treatment Course - LABORATORY CBC & Chemistry Diagram: 04/04/20 16:46 04/04/20 16:46 - ADDITIONAL ORDERS Additional order review: Laboratory Results 04/04/20 04/04/20 04/04/20 16:46 16:46 16:46 PT with INR 17.10 H INR 1.44 H PTT (Actin FS) 34.3 VBG pH 7.403 POC VBG pCO2 46.0 POC VBG pO2 37.1 VBG HCO3 28.0 VBG O2 Sat (Emilee) 70.5 VBG Base Excess 2.7 H Sodium 132 L Potassium 3.5 Chloride 96 L Carbon Dioxide 27 Anion Gap 9 BUN 18.0 Creatinine 0.8 Est GFR (CKD-EPI)AfAm 143.90 Est GFR (CKD-EPI)NonAf 124.16 Random Glucose 125 H Calcium 8.8 Ferritin 423.8 H Total Bilirubin 0.5 Direct Bilirubin 0.4 H AST 62 H ALT 96 H Alkaline Phosphatase 198 H LD Total 244 Creatine Kinase 251 Troponin I < 0.02 Total Protein 7.4 Albumin 2.7 L 04/04/20 16:46 RBC 4.57 MCV 81.1 MCHC 33.1 RDW 14.4 MPV 9.4 D Neutrophils % 79.3 Lymphocytes % 11.4 D Monocytes % 8.3 Eosinophils % 0.6 Basophils % 0.4 D - Medications Given in the ED: ED Medications Discontinued Medications Generic Name Dose Route Start Last Admin Trade Name Freq PRN Reason Stop Dose Admin Dexamethasone Sodium Phosphate 6 mg 04/04/20 16:14 04/04/20 16:48 Decadron Injection - IVPUSH 04/04/20 16:15 6 mg ONCE ONE Administration Sodium Chloride 1,000 ml 04/04/20 16:14 04/04/20 16:49 Normal Saline - IV 04/04/20 16:15 1,000 ml ONCE ONE Administration Medical Decision Making - Medical Decision Making 04/04/20 19:24 Patient signed out to me This is a 24 y/o male with a PMH of opiate abuse on Methadone maintenance who is presenting due to 1 week of fatigue, loss of appetite, headache, fever, and pleuritic chest pain following a green party with close contact. He is 93% on RA at rest and 89% when walking but denies difficulty breathing. He is pending CTA for admission for management of hypoxia and covid Labs notable for: Ferritin 423 Alk Phos 198 LD 244 AST 62 ALT 96 Na 132 CTA: IMPRESSION Bilateral lower lobe pneumonia. COVID can not be excluded if clinically indicated. Recommend follow-up until resolution. - Patient comfortable in bed, non-toxic appearing, conversational saturating at 93% on RA. - Patient is ok with admission - Admitted to [facility] Discharge - Discharge Information Problems reviewed: Yes Clinical Impression/Diagnosis: Hypoxia, COVID-19 - Admission Yes - Follow up/Referral - Patient Discharge Instructions - Post Discharge Activity
[2020-04-04] MEDS ORDERED: AZITHROMYCIN 250 MG TABLET PO ONE (19:46)
--- NOTE | 2020-04-04 19:49 | PDOC ---
*Physical Exam - Vital Signs Last Vital Signs Temp Pulse Resp BP Pulse Ox 98.7 F 109 H 18 127/82 92 L 04/04/20 15:37 04/04/20 16:58 04/04/20 16:58 04/04/20 16:58 04/04/20 16:58 ED Treatment Course - LABORATORY CBC & Chemistry Diagram: 04/04/20 16:46 04/04/20 16:46 - ADDITIONAL ORDERS Additional order review: Laboratory Results 04/04/20 04/04/20 04/04/20 16:46 16:46 16:46 PT with INR 17.10 H INR 1.44 H PTT (Actin FS) 34.3 VBG pH 7.403 POC VBG pCO2 46.0 POC VBG pO2 37.1 VBG HCO3 28.0 VBG O2 Sat (Emilee) 70.5 VBG Base Excess 2.7 H Sodium 132 L Potassium 3.5 Chloride 96 L Carbon Dioxide 27 Anion Gap 9 BUN 18.0 Creatinine 0.8 Est GFR (CKD-EPI)AfAm 143.90 Est GFR (CKD-EPI)NonAf 124.16 Random Glucose 125 H Calcium 8.8 Ferritin 423.8 H Total Bilirubin 0.5 Direct Bilirubin 0.4 H AST 62 H ALT 96 H Alkaline Phosphatase 198 H LD Total 244 Creatine Kinase 251 Troponin I < 0.02 Total Protein 7.4 Albumin 2.7 L 04/04/20 16:46 RBC 4.57 MCV 81.1 MCHC 33.1 RDW 14.4 MPV 9.4 D Neutrophils % 79.3 Lymphocytes % 11.4 D Monocytes % 8.3 Eosinophils % 0.6 Basophils % 0.4 D - Medications Given in the ED: ED Medications Discontinued Medications Generic Name Dose Route Start Last Admin Trade Name Aubrey PRN Reason Stop Dose Admin Dexamethasone Sodium Phosphate 6 mg 04/04/20 16:14 04/04/20 16:48 Decadron Injection - IVPUSH 04/04/20 16:15 6 mg ONCE ONE Administration Sodium Chloride 1,000 ml 04/04/20 16:14 04/04/20 16:49 Normal Saline - IV 04/04/20 16:15 1,000 ml ONCE ONE Administration Medical Decision Making - Medical Decision Making 04/04/20 19:48 Patient Name: ALEJANDRA PEREIRA THIS IS A PRELIMINARY REPORT DATE OF SERVICE: 2020-04-04 18:44:33 IMAGES: [id number] EXAM: CT CHEST WITH CONTRAST. TECHNIQUE: Contiguous axial images acquired with reconstructed images in the sagittal and coronal planes. REASON FOR EXAM: Suspect COVID COMPARISON: None FINDINGS Bilateral groundglass and alveolar consolidations are seen within the lower lobes bilaterally and minimally extending to the superior segments. 1.6 x 2.3 cm focal consolidation seen within the right lower lobe medially. The rest of the lung sepulveda are clear. Cardiac structure and pulmonary vascularity are within normal. There is no pericardial effusion observed. There is no aortic dissection or obvious large central pulmonary arterial filling defects. Prominent subcarinal and bilateral infrahilar lymph nodes likely reactionary. Bony thoracic cage and spine without fracture or suspicious lesions. Limited views below the diaphragm are unremarkable. IMPRESSION Bilateral lower lobe pneumonia. COVID can not be excluded if clinically indicated. Recommend follow-up until resolution. 04/04/20 19:49 Pt has elevated LFT, ferritin and pulsox 92%. 04/04/20 22:05 Pt will be admitted Discharge - Discharge Information Problems reviewed: Yes Clinical Impression/Diagnosis: Hypoxia, COVID-19 - Follow up/Referral - Patient Discharge Instructions - Post Discharge Activity
[2020-04-04 19:58] LABS: EPI CELLS 36 /uL (0-25.1); HYALINE CASTS 3 /uL (0-3.1); PH,URINE 6.5 (5.0-8.0); URINE APPEARANCE CLEAR; URINE BACTERIA 693 /uL (0-1359); URINE BILIRUBIN NEGATIVE (NEGATIVE); URINE COLOR DK YELLOW; URINE GLUCOSE (UA) NEGATIVE (NEGATIVE); URINE KETONE NEGATIVE (NEGATIVE); URINE LEUK ESTERASE TRACE (NEGATIVE); URINE NITRITE NEGATIVE (NEGATIVE); URINE PROTEIN 1+ (NEGATIVE); URINE RBC 43 /uL (0-23.9); URINE WBC 30 /uL (0-25.8)
[2020-04-04] MEDS ORDERED: AZITHROMYCIN 250 MG TABLET ONE (20:03)
[2020-04-04] MEDS ORDERED: CEFTRIAXONE 1 GM/50 ML BAG ONE (20:03)
--- NOTE | 2020-04-04 20:30 | PN ---
Teaching Attending Note Name of Resident: Saul Segura ATTENDING PHYSICIAN STATEMENT I saw and evaluated the patient. I reviewed the resident's note and discussed the case with the resident. I agree with the resident's findings and plan as documented. SUBJECTIVE: Patient is a 24 year old man with a PMH of Opioid dependence (on Methadone) p resenting for evaluation of 1 week of severe fatigue, loss of appetite, headache, fevers, and pleuritic chest pain. States he was at a green party 03/27/20 with very close contact with unmasked people. [place] very fatigued walking around the days after the green party and in the past few days has been in bed sleeping essentially all day. Subjective fevers with diaphoresis. Loss of appetite with poor solid and liquid intake. Denies difficulty breathing. Has occasional productive cough but no sorethroat or runny nose. Denies alcohol, tobacco or illicit drug use. No sick contacts or recent travels. Family history is unremarkable. OBJECTIVE: Alert Vital Signs Period Temp Pulse Resp BP Sys/Schmidt Pulse Ox Last 24 Hr 98.7 F 109-134 18-20 110-127/82-89 92-96 HEENT: No Jaundice, eye redness or discharge, PERRLA, EOMI. Normocephalic, atraumatic. External ears are normal and hearing is grossly intact. No nasal discharge. Neck: Supple, nontender. No palpable adenopathy or thyromegaly. No JVD Chest: Good effort. Clear to auscultation and percussion. Heart: Regular. No S3, rub or murmur Abdomen: Not distended, soft, nontender and no HSM. No rebound or guarding. Normal bowel sounds. Ext: Peripheral pulses intact. No leg edema. Skin: Warm and dry. No petechiae, rash or ecchymosis. Neuro: Alert. Oriented x3. CN 2-12 grossly intact. Sensation grossly intact in all four extremities and DTR are symmetric. Psych: Appropriate mood and affect. Good insight. Home Medications Medication Instructions Recorded Clonazepam [Klonopin] 1 mg PO BID 04/04/20 Methadone [Dolophine -] 100 mg PO DAILY 04/04/20 Abnormal Lab Results 04/04/20 04/04/20 04/04/20 16:46 16:46 16:46 WBC 13.0 H Absolute Neuts (auto) 10.3 H PT with INR 17.10 H INR 1.44 H VBG Base Excess Sodium 132 L Chloride 96 L Random Glucose 125 H Ferritin 423.8 H Direct Bilirubin 0.4 H AST 62 H ALT 96 H Alkaline Phosphatase 198 H Albumin 2.7 L Urine Protein Urine Blood 04/04/20 04/04/20 16:46 19:39 WBC Absolute Neuts (auto) PT with INR INR VBG Base Excess 2.7 H Sodium Chloride Random Glucose Ferritin Direct Bilirubin AST ALT Alkaline Phosphatase Albumin Urine Protein 1+ H Urine Blood 1+ H Current Medications Generic Name Dose Route Start Last Admin Trade Name Freq PRN Reason Stop Dose Admin Ascorbic Acid 250 mg 04/05/20 10:00 Vitamin C - PO BID VINI Enoxaparin Sodium 40 mg 04/05/20 10:00 Lovenox - SQ DAILY VINI Famotidine 20 mg 04/05/20 10:00 Pepcid - PO DAILY VINI Ceftriaxone Sodium 1,000 mg/ 50 mls @ 100 mls/hr 04/05/20 19:00 Dextrose IVPB DAILY VINI Azithromycin 250 mg/ Dextrose 250 mls @ 250 mls/hr 04/05/20 10:00 IVPB DAILY VINI Zinc Sulfate 220 mg 04/05/20 10:00 Orazinc - PO BID VINI ASSESSMENT AND PLAN: 1. Pneumonia/Rule out COVID-19 infection - No acute abnormality on CXR. Oxygen saturation was 93% on room air at rest and dropped to 89 with walking. Chest/thorax CTA findings - Bilateral groundglass and alveolar consolidations are seen within the lower lobes bilaterally and minimally extending to the superior segments. 1.6 x 2.3 cm focal consolidation seen within the right lower lobe medially. The rest of the lung sepulveda are clear. Cardiac structure and pulmonary vascularity are within normal. There is no pericardial effusion observed. There is no aortic dissection or obvious large central pulmonary arterial filling defects. Prominent subcarinal and bilateral infrahilar lymph nodes likely reactionary. Bony thoracic cage and spine without fracture or suspicious lesions. Limited views below the diaphragm are unremarkable. IMPRESSION - Bilateral lower lobe pneumonia. COVID can not be excluded if clinically indicated. Viral testing for COVID-19 ordered and patient placed on airborne, droplet and contact isolation. Started on supplemental oxygen via nasal cannula. EKG shows sinus tachycardia at 112/minute with no ischemic ST-T wave changes. Will trend LFTs, get D-dimer, monitor for drug withdrawal, continue methadone after dose verification, treat patient with Zinc sulfate, Pepcid, Vitamin C, IV Ceftriaxone and Azithromycin, Tylenol PRN and consult ID. Got Dexamethasone 6 mg IV in the ER. Will continue comprehensive care for all of patients comorbid conditions. 2. Hypoalbuminemia - Possibly due to combined effects of proteinuria, malnutrition and inflammation associated with comorbid conditions. Will ensure adequate dietary protein intake and also consult production roustabout. 3. Obesity Counseled on the risks associated with obesity. Will provide patient all the necessary assistance, counseling and positive reinforcement to facilitate weight loss. Consult production roustabout. 4. DVT prophylaxis - Lovenox 40 mg SQ q 24 hours. 5. Advance directives - Full code
--- NOTE | 2020-04-05 03:55 | HP ---
CHIEF COMPLAINT: persistent fatigue PCP: HISTORY OF PRESENT ILLNESS: 24M chronic anxiety, opioid dependence(methadone 100mg, Clinic at [facility], gets weekly Rx) BIBfather to [facility], for evaluation of persistent fatigue, subjective fever/chills, SOB x1week. Prior to symptoms was going to social gatherings, meeting strangers w/o masks. On Mar 27, was at outdoor block constitution party. Was engaging in conversation, just inches from strangers faces. Thinks it was over 35 ppl he spoke to; doesn't recall the size of the constitution party. After the constitution party, felt fatigued, sleeping all day; only waking up to use the bathroom. Has had coughing dark phelgm x1week, usually when waking up. Has had trouble breathing when walking, getting out out of bed. Pleuritic chest pain with deep breaths. Has loss of appetite, loss of taste, loss of smell. No nausea, no vomiting. Feels constipated. Has subjective fevers and chills. Has urinary frequency. Doesn't know if other constitution party-goers from Mar 27 have been sick. Denies sick contacts at work. 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 Lives alone ER course was notable for: -Tmax 98.7F, HR 134 -->107, 110/89 -93%(RA), ambulatory O2 89-91% -WBC 13 -LDH 244, ferritin 423.8, D-dimer 2012 -UA: protein 1+, blood 1+, LE trace, WBC 30, RBC 43, bact 693, epith 36 -CTA chest: b/l lower lobe PNA, no filling defects -NS 1L, dexamethasone 6mg, ceftriaxone 1g, azithro 500 Recent Travel: denies PAST MEDICAL HISTORY: opioid usage PAST SURGICAL HISTORY: left knee fracture sp surgery Social History: Smokin.5-1ppd, no current cravings Alcohol: drinks 4 alcoholic beverages per outing Drugs: former opioid, last usage 2017; chronic klonopin Rx Allergies No Known Allergies Allergy (Verified 04/04/20 15:40) HOME MEDICATIONS: Home Medications Medication Instructions Recorded Clonazepam [Klonopin] 1 mg PO BID 04/04/20 Methadone [Dolophine -] 100 mg PO DAILY 04/04/20 REVIEW OF SYSTEMS CONSTITUTIONAL: fever, chills, generalized weakness, malaise, loss of appetite, Absent: , diaphoresis, weight change HEENT: Absent: rhinorrhea, nasal congestion, throat pain, throat swelling, difficulty swallowing, mouth swelling, ear pain, eye pain, visual changes CARDIOVASCULAR: Absent: chest pain, syncope, palpitations, irregular heart rate, lightheadedness, peripheral edema RESPIRATORY: cough, shortness of breath, dyspnea with exertion, Absent: orthopnea, wheezing, stridor, hemoptysis GASTROINTESTINAL: constipation, Absent: abdominal pain, abdominal distension, nausea, vomiting, diarrhea, melena, hematochezia GENITOURINARY: Absent: dysuria, frequency, urgency, hesitancy, hematuria, flank pain, genital pain MUSCULOSKELETAL: Absent: myalgia, arthralgia, joint swelling, back pain, neck pain SKIN: Absent: rash, itching, pallor HEMATOLOGIC/IMMUNOLOGIC: Absent: easy bleeding, easy bruising, lymphadenopathy, frequent infections ENDOCRINE: Absent: unexplained weight gain, unexplained weight loss, heat intolerance, cold intolerance NEUROLOGIC: Absent: headache, focal weakness or paresthesias, dizziness, unsteady gait, seizure, mental status changes, bladder or bowel incontinence PSYCHIATRIC: Absent: anxiety, depression, suicidal or homicidal ideation, hallucinations. PHYSICAL EXAMINATION Vital Signs - 24 hr 04/04/20 04/04/20 04/04/20 15:37 15:45 16:58 Temperature 98.7 F Pulse Rate 134 H Pulse Rate [ 109 H Apical] Respiratory 20 18 Rate Blood Pressure 110/89 Blood Pressure 127/82 [Right Arm] O2 Sat by Pulse 93 L 96 92 L Oximetry (%) 04/04/20 04/04/20 17:00 21:56 Temperature Pulse Rate Pulse Rate [ 107 H Apical] Respiratory 20 Rate Blood Pressure Blood Pressure 117/85 [Right Arm] O2 Sat by Pulse 96 97 Oximetry (%) GENERAL: Awake, alert, and fully oriented, in no acute distress. HEAD: NC/AT EYES: conjunctiva clear. No lid lag. EARS, NOSE, THROAT: Ears normal, nares patent, oropharynx clear without exudates. Moist mucous membranes. NECK: Normal range of motion, supple without lymphadenopathy, JVD, or masses. LUNGS: Breath sounds equal, clear to auscultation bilaterally. No wheezes, and no crackles. No accessory muscle use. HEART: Regular rate and rhythm, normal S1 and S2 without murmur, rub or gallop. ABDOMEN: Soft, nontender, not distended, normoactive bowel sounds, no guarding, no rebound, no masses. No hepatomegaly or splenomegaly. MUSCULOSKELETAL: Normal range of motion at all joints. No bony deformities or tenderness. No CVA tenderness. UPPER EXTREMITIES: 2+ pulses, warm, well-perfused. No cyanosis. No clubbing. No peripheral edema. LOWER EXTREMITIES: 2+ pulses, warm, well-perfused. No calf tenderness. No peripheral edema. NEUROLOGICAL: Cranial nerves II-XII intact. Normal speech. Normal gait. PSYCHIATRIC: Cooperative. Good eye contact. Appropriate mood and affect. SKIN: Warm, dry, normal turgor, no rashes or lesions noted, normal capillary refill. Laboratory Results - last 24 hr 04/04/20 04/04/20 04/04/20 16:46 16:46 16:46 WBC 13.0 H RBC 4.57 Hgb 12.3 Hct 37.1 MCV 81.1 MCH 26.9 MCHC 33.1 RDW 14.4 Plt Count 278 MPV 9.4 D Absolute Neuts (auto) 10.3 H Neutrophils % 79.3 Neutrophils % (Manual) 67.3 Band Neutrophils % 2.0 Lymphocytes % 11.4 D Lymphocytes % (Manual) 15.8 Monocytes % 8.3 Monocytes % (Manual) 9 Eosinophils % 0.6 Eosinophils % (Manual) 0.0 Basophils % 0.4 D Basophils % (Manual) 0.0 Myelocytes % (Man) 1 Promyelocytes % (Man) 0 Blast Cells % (Manual) 0 Nucleated RBC % 0 Metamyelocytes 1 Hypochromia 0 Platelet Estimate Normal Platelet Comment Present Polychromasia 1+ Poikilocytosis 0 Anisocytosis 1+ Microcytosis 1+ Macrocytosis 0 PT with INR 17.10 H INR 1.44 H PTT (Actin FS) 34.3 D-Dimer VBG pH POC VBG pCO2 POC VBG pO2 VBG HCO3 VBG O2 Sat ([place]) VBG Base Excess Sodium 132 L Potassium 3.5 Chloride 96 L Carbon Dioxide 27 Anion Gap 9 BUN 18.0 Creatinine 0.8 Est GFR (CKD-EPI)AfAm 143.90 Est GFR (CKD-EPI)NonAf 124.16 Random Glucose 125 H Calcium 8.8 Ferritin 423.8 H Total Bilirubin 0.5 Direct Bilirubin 0.4 H AST 62 H ALT 96 H Alkaline Phosphatase 198 H LD Total 244 Creatine Kinase 251 Troponin I < 0.02 Total Protein 7.4 Albumin 2.7 L Urine Color Urine Appearance Urine pH Ur Specific Beverly Urine Protein Urine Glucose (UA) Urine Ketones Urine Blood Urine Nitrite Urine Bilirubin Urine Urobilinogen Ur Leukocyte Esterase Urine WBC (Auto) Urine RBC (Auto) Urine Casts (Auto) U Epithel Cells (Auto) Urine Bacteria (Auto) 04/04/20 04/04/20 04/05/20 16:46 19:39 00:02 WBC RBC Hgb Hct MCV MCH MCHC RDW Plt Count MPV Absolute Neuts (auto) Neutrophils % Neutrophils % (Manual) Band Neutrophils % Lymphocytes % Lymphocytes % (Manual) Monocytes % Monocytes % (Manual) Eosinophils % Eosinophils % (Manual) Basophils % Basophils % (Manual) Myelocytes % (Man) Promyelocytes % (Man) Blast Cells % (Manual) Nucleated RBC % Metamyelocytes Hypochromia Platelet Estimate Platelet Comment Polychromasia Poikilocytosis Anisocytosis Microcytosis Macrocytosis PT with INR INR PTT (Actin FS) D-Dimer 2012 H VBG pH 7.403 POC VBG pCO2 46.0 POC VBG pO2 37.1 VBG HCO3 28.0 VBG O2 Sat ([place]ilee) 70.5 VBG Base Excess 2.7 H Sodium Potassium Chloride Carbon Dioxide Anion Gap BUN Creatinine Est GFR (CKD-EPI)AfAm Est GFR (CKD-EPI)NonAf Random Glucose Calcium Ferritin Total Bilirubin Direct Bilirubin AST ALT Alkaline Phosphatase LD Total Creatine Kinase Troponin I Total Protein Albumin Urine Color Dk yellow Urine Appearance Clear Urine pH 6.5 D Ur Specific Beverly 1.021 Urine Protein 1+ H Urine Glucose (UA) Negative Urine Ketones Negative Urine Blood 1+ H Urine Nitrite Negative Urine Bilirubin Negative Urine Urobilinogen 2.0 Ur Leukocyte Esterase Trace Urine WBC (Auto) 30 Urine RBC (Auto) 43 Urine Casts (Auto) 3 U Epithel Cells (Auto) 36 Urine Bacteria (Auto) 693 ASSESSMENT/PLAN: 24M opioid dependence(methadone 100mg, Clinic at [facility], gets weekly Rx) BIBfather to [facility], for evaluation of persistent fatigue, subjective fever/chills, SOB x1week. Constellation of symptoms, elevated inflammatory markers, and CTA chest are highly suggestive of COVID19. Admitted d/t to desaturating while ambulating(89%). #likely COVID pneumonititis --no O2 requirements while at rest, unable to r/o superimposed bacterial PNA > 93%(RA), ambulatory O2 89-91% > LDH 244, ferritin 423.8, D-dimer 2011 > CTA chest: b/l lower lobe PNA, no filling defects - abx regimen: --ceftriaxone 1g QD, azithromycin 250mg QD - zinc, vitamin C, pepcid - ID consult(Natalia): --recs pending - no need for steroids at this time as pt does not require O2 at rest #elevated D-dimer --likely 2/2 to COVID, less likely DVT > CTA chest: IMG-ONCALL:: neg for PE --fu final read > venous duplex --pending - empiric therapeutic lovenox 110mg BID #elevated WBC --likely 2/2 to COVID, less likely UTI > UA: protein 1+, blood 1+, LE trace, WBC 30, RBC 43, bact 693, epith 36 - pt has more RBC than WBC, likely contaminated UA #chronic opioid usage disorder --tx with outpt methadone - need to verify methadone w/ [facility] #chronic anxiety - reports taking Klonopin 2mg daily - will need to reverify dosage with [facility] - avoid IVF(probable COVID) - regular diet DVT PPX - therapeutic lovenox 110mg BID Family Medical History Family History: Denies Visit type - Emergency Visit Emergency Visit: Yes ED Registration Date: 04/04/20 Care time: The patient presented to the Emergency Department on the above date and was hospitalized for further evaluation of their emergent condition. - New Patient This patient is new to me today: Yes Date on this admission: 04/05/20 - Critical Care Critical Care patient: No ATTENDING PHYSICIAN STATEMENT I saw and evaluated the patient. I reviewed the resident's note and discussed the case with the resident. I agree with the resident's findings and plan as documented. SUBJECTIVE: OBJECTIVE: ASSESSMENT AND PLAN:
[2020-04-05 08:08] LABS: HEMATOCRIT 36.6 % (35.4-49); HEMOGLOBIN 11.8 GM/dL (11.7-16.9); MCH 26.1 pg (25.7-33.7); MCHC 32.3 g/dl (32.0-35.9); MEAN CELL VOLUME 80.8 fl (80-96); MEAN PLT VOLUME 9.1 fl (7.5-11.1); PLATELET COUNT 290 K/MM3 (134-434); RBC 4.53 M/mm3 (4.00-5.60); RDW 14.4 % (11.9-15.9); WHITE BLOOD COUNT 12.5 K/mm3 (4.0-10.0)
[2020-04-05 08:34] LABS: ALBUMIN 2.6 g/dl (3.4-5.0); BILIRUBIN,TOTAL 0.4 mg/dL (0.2-1); BLOOD UREA NITROGEN 15.3 mg/dL (7-18); CALCIUM 8.9 mg/dL (8.5-10.1); CREATININE 0.6 mg/dL (0.55-1.3); MAGNESIUM 2.8 mg/dL (1.8-2.4); POTASSIUM 4.2 mmol/L (3.5-5.1); TOT PROT 7.3 g/dl (6.4-8.2)
[2020-04-05] MEDS ORDERED: ENOXAPARIN NA (PORCINE) 40 MG/0.4 ML DISP.SYRIN SQ SCH ×3 (10:00)
[2020-04-05] MEDS ORDERED: ENOXAPARIN NA (PORCINE) 100 MG/1 ML DISP.SYRIN SQ ONE (10:05)
[2020-04-05] MEDS ORDERED: ZINC SULFATE 220 MG CAPSULE (FP) ONE (10:05)
[2020-04-05] MEDS: FAMOTIDINE 20 MG TABLET PO SCH (10:18)
[2020-04-05] MEDS: AZITHROMYCIN IVPB 250 MG in DEXTROSE 5%-WATER - 250 ML IVPB SCH (10:18)
[2020-04-05] MEDS: ZINC SULFATE 220 MG CAPSULE (FP) PO SCH ×2 (10:18→22:03)
[2020-04-05] MEDS: ASCORBIC ACID 250 MG TABLET (FP) PO SCH (10:18)
[2020-04-05] MEDS: ENOXAPARIN 80 MG, ENOXAPARIN 30 MG SQ SCH ×2 (10:18→22:03)
--- NOTE | 2020-04-05 10:42 | EKG ---
Test Reason : Blood Pressure : / mmHG Vent. Rate : 112 BPM Atrial Rate : 112 BPM P-R Int : 146 ms QRS Dur : 086 ms QT Int : 278 ms P-R-T Axes : 060 058 048 degrees QTc Int : 379 ms SINUS TACHYCARDIA OTHERWISE NORMAL ECG WHEN COMPARED WITH ECG OF 22-OCT-2017 22:17, NO SIGNIFICANT CHANGE WAS FOUND Confirmed by CARLEE PALMA MD ([id number]) on 04/05/2020 10:42:19 AM Referred By: Confirmed By:CARLEE PALMA MD
--- NOTE | 2020-04-05 12:07 | PN ---
Teaching Attending Note Name of Resident: Rio Soliz ATTENDING PHYSICIAN STATEMENT I saw and evaluated the patient. I reviewed the resident's note and discussed the case with the resident. I agree with the resident's findings and plan as documented. SUBJECTIVE: OBJECTIVE: ASSESSMENT AND PLAN:
--- NOTE | 2020-04-05 12:28 | PN ---
Teaching Attending Note Name of Resident: Rio Soliz ATTENDING PHYSICIAN STATEMENT I saw and evaluated the patient. I reviewed the resident's note and discussed the case with the resident. I agree with the resident's findings and plan as documented. SUBJECTIVE: Seen and examined at bedside. Patient reports is feeling better since getting fluids. Satting 100% on 2 L, pulse normalized. Initial COVID PCR negative. Given high concern for COVID will repeat OBJECTIVE Last Vital Signs Temp Pulse Resp BP Pulse Ox 97.5 F L 61 18 101/58 L 100 04/05/20 08:36 04/05/20 08:36 04/05/20 08:53 04/05/20 08:36 04/05/20 08:53 PE: Per resident note Labs/Imaging: reviewed ASSESSMENT/PLAN 24-year-old male history of anxiety, opioid dependence on methadone, presented with fatigue, malaise, subjective fevers and chills, shortness of breath, poor appetite and loss of taste, times one 1 week. Found to be hypoxic with bilateral infiltrates on CT. Admitted for community-acquired pneumonia with high concern for COVID. #Hypoxic respiratory failure High concern for COVID given consistent imaging findings, labs, symptoms. Initial COVID test negative Repeat COVID Continue azithromycin/ceftriaxone Continue AC tx Continue steroids Oxygen as needed #Elevated d-dimer: Downtrending Negative DVT/PE Most likely secondary to COVID despite negative COVID PCR #Chronic opioid use disorder Reports 100 mg of methadone daily Follows with [facility] #Chronic anxiety Prescription monitoring program checked. Dose of clonazepam 2 mg daily for anxiety confirmed 2 mg Klonopin daily DVTppx: tx dose lovenox
[2020-04-05] MEDS ORDERED: DEXAMETHASONE 4 MG TABLET (FP) PO SCH (13:00)
[2020-04-05] MEDS: DEXAMETHASONE 4 MG, DEXAMETHASONE 2 MG PO SCH (14:28)
--- NOTE | 2020-04-05 14:53 | CON.ID ---
Consult - Alcohol/Substance Use Hx Alcohol Use: No - Smoking History Smoking history: Unknown if ever smoked Have you smoked in the past 12 months: Yes Aproximately how many cigarettes per day: 20 Home Medications - Allergies Allergies/Adverse Reactions: Allergies Allergy/AdvReac Type Severity Reaction Status Date / Time No Known Allergies Allergy Verified 04/04/20 15:40 - Home Medications Home Medications: Ambulatory Orders Clonazepam [Klonopin] 1 mg PO BID 04/04/20 Methadone [Dolophine -] 100 mg PO DAILY 04/04/20 Physical Exam Vital Signs: Vital Signs Temperature 97.5 F L 04/05/20 08:36 Pulse Rate 61 04/05/20 08:36 Respiratory Rate 18 04/05/20 08:53 Blood Pressure 101/58 L 04/05/20 08:36 O2 Sat by Pulse Oximetry (%) 100 04/05/20 08:53 Labs: CBC, BMP 04/05/20 07:50 04/05/20 07:50
[2020-04-05] MEDS: PIPERACILLIN/TAZOB 3.375 GM 3.375 GM in DEXTROSE 5%-WATER - 50 ML IVPB SCH ×2 (18:56→20:17)
[2020-04-05] MEDS ORDERED: CEFTRIAXONE 1,000 MG in DEXTROSE 5%-WATER - 50 ML IVPB SCH (19:00)
--- NOTE | 2020-04-05 19:52 | PN ---
Physical Exam: SUBJECTIVE: Patient seen and examined. Pt states breathing is better with the oxygen. Pt. endorses snoring at night. OBJECTIVE: Vital Signs Period Temp Pulse Resp BP Sys/Schmidt Pulse Ox Last 24 Hr 97.5 F-98.0 F 61-107 18-20 101-123/58-86 97-100 GENERAL: The patient is awake, alert, and fully oriented, in mild resp. distress. HEAD: Normal with no signs of trauma. EYES: Sclera anicteric, conjunctiva clear. ENT: Moist mucous membranes. NECK: Trachea midline, full range of motion, supple. LUNGS: Breath sounds equal, clear to auscultation bilaterally, no wheezes, no crackles, no accessory muscle use. HEART: Regular rate and rhythm, S1, S2 without murmur ABDOMEN: Soft, nontender, nondistended, normoactive bowel sounds, no guarding, no rebound, no hepatosplenomegaly, no masses. EXTREMITIES: 2+ dorsal pedal pulses, warm, no calf tenderness, well-perfused, no edema. NEUROLOGICAL: No focal deficits, Normal speech, gait not observed. PSYCH: Normal mood, normal affect. SKIN: Warm, diaphoretic, normal turgor, no rashes or lesions noted Laboratory Results - last 24 hr 04/04/20 04/04/20 04/04/20 16:46 16:46 19:39 WBC RBC Hgb Hct MCV MCH MCHC RDW Plt Count MPV D-Dimer Sodium Potassium Chloride Carbon Dioxide Anion Gap BUN Creatinine Est GFR (CKD-EPI)AfAm Est GFR (CKD-EPI)NonAf Random Glucose Calcium Magnesium Ferritin Total Bilirubin AST ALT Alkaline Phosphatase LD Total Creatine Kinase Index 0.5 CK-MB (CK-2) 1.5 C-Reactive Protein 17.6 H Total Protein Albumin Urine Color Dk yellow Urine Appearance Clear Urine pH 6.5 D Ur Specific [place] 1.021 Urine Protein 1+ H Urine Glucose (UA) Negative Urine Ketones Negative Urine Blood 1+ H Urine Nitrite Negative Urine Bilirubin Negative Urine Urobilinogen 2.0 Ur Leukocyte Esterase Trace Urine WBC (Auto) 30 Urine RBC (Auto) 43 Urine Casts (Auto) 3 U Epithel Cells (Auto) 36 Urine Bacteria (Auto) 693 COVID-19 (VI) Not detected 04/05/20 04/05/20 04/05/20 00:02 07:50 07:50 WBC 12.5 H RBC 4.53 Hgb 11.8 Hct 36.6 MCV 80.8 MCH 26.1 MCHC 32.3 RDW 14.4 Plt Count 290 MPV 9.1 D-Dimer 2012 H Sodium 135 L Potassium 4.2 Chloride 100 Carbon Dioxide 27 Anion Gap 8 BUN 15.3 Creatinine 0.6 Est GFR (CKD-EPI)AfAm 161.96 Est GFR (CKD-EPI)NonAf 139.74 Random Glucose 109 H Calcium 8.9 Magnesium 2.8 H Ferritin Total Bilirubin 0.4 AST 46 H ALT 82 H Alkaline Phosphatase 179 H LD Total Creatine Kinase Index CK-MB (CK-2) C-Reactive Protein Total Protein 7.3 Albumin 2.6 L Urine Color Urine Appearance Urine pH Ur Specific [place] Urine Protein Urine Glucose (UA) Urine Ketones Urine Blood Urine Nitrite Urine Bilirubin Urine Urobilinogen Ur Leukocyte Esterase Urine WBC (Auto) Urine RBC (Auto) Urine Casts (Auto) U Epithel Cells (Auto) Urine Bacteria (Auto) COVID-19 (VI) 04/05/20 04/05/20 07:50 07:50 WBC RBC Hgb Hct MCV MCH MCHC RDW Plt Count MPV D-Dimer 1607 H Sodium Potassium Chloride Carbon Dioxide Anion Gap BUN Creatinine Est GFR (CKD-EPI)AfAm Est GFR (CKD-EPI)NonAf Random Glucose Calcium Magnesium Ferritin 355.2 Total Bilirubin AST ALT Alkaline Phosphatase LD Total 246 Creatine Kinase Index CK-MB (CK-2) C-Reactive Protein 15.7 H Total Protein Albumin Urine Color Urine Appearance Urine pH Ur Specific [place] Urine Protein Urine Glucose (UA) Urine Ketones Urine Blood Urine Nitrite Urine Bilirubin Urine Urobilinogen Ur Leukocyte Esterase Urine WBC (Auto) Urine RBC (Auto) Urine Casts (Auto) U Epithel Cells (Auto) Urine Bacteria (Auto) COVID-19 (VI) Active Medications Generic Name Dose Route Start Last Admin Trade Name Freq PRN Reason Stop Dose Admin Ascorbic Acid 250 mg 04/05/20 10:00 04/05/20 10:18 Vitamin C - PO 250 mg BID VINI Administration Dexamethasone 4 mg/ 6 mg 04/05/20 13:15 04/05/20 14:28 Dexamethasone 2 mg PO Not Given DAILY [facility] Enoxaparin Sodium 80 mg/ 110 mg 04/05/20 10:00 04/05/20 10:18 Enoxaparin Sodium 30 mg SQ 110 mg BID VINI Administration Famotidine 20 mg 04/05/20 10:00 04/05/20 10:18 Pepcid - PO 20 mg DAILY VINI Administration Azithromycin 250 mg/ Dextrose 250 mls @ 250 mls/hr 04/05/20 10:00 04/05/20 10:18 IVPB 250 mls/hr DAILY VINI Administration Piperacillin Sod/Tazobactam 50 mls @ 100 mls/hr 04/05/20 18:00 Sod 3.375 gm/ Dextrose IVPB Q8H-IV VINI Protocol Zinc Sulfate 220 mg 04/05/20 10:00 04/05/20 10:18 Orazinc - PO 220 mg BID VINI Administration ASSESSMENT/PLAN: Pt. is a 24 M w/ PMHx. of anxiety, opioid dependence (on methadone), presenting with fatigue, malaise, subjective fevers and chills, shortness of breath, poor appetite and loss of taste, times one 1 week. Found to be hypoxic with bilateral infiltrates on CT. Admitted for community-acquired pneumonia with high concern for COVID. #Hypoxic respiratory failure -High concern for COVID given consistent imaging findings, labs, symptoms. Initial COVID test negative, but Pt.s states swab was incorrectly done and only tested nares. f/u Rpt. COVID, however will treat as COVID despite test results as Pt. has high pre-test probability. Continue azithromycin/ceftriaxone, Zinc Continue therapeutic Lovenox, discussed w/ Pt. that because he is requirein O2 may bee to discharge on at least 2 weeks to a month of AC Start steroids Oxygen as needed -Daily inflammatory markers -If Pt. requires escalating oxygenation will consider Remdesivir, convalescent plasma and/or Tocilizumab as per ID #Elevated d-dimer: Downtrending Negative DVT/PE Most likely secondary to COVID despite negative COVID PCR #Chronic opioid use disorder Reports 100 mg of methadone daily Follows with [facility] -NEEDS RECONCILIATION, if not consider Addiction consult as Pt.s respiratory status is a relative contraindication to giving respiratory depressants especially in addition to Benzos. I acknowledge that Pt. going into withdrawal may complicate hospital course. Consider giving reduced dose as well. #Chronic anxiety Prescription monitoring program checked. Dose of clonazepam 2 mg daily for anxiety confirmed 1 mg Klonopin BID #DVTppx: Therapeutic Lovenox #Dispo c/w monitoring in isolation with continuous pulse oximetry monitoring Visit type - Emergency Visit Emergency Visit: Yes ED Registration Date: 04/04/20 Care time: The patient presented to the Emergency Department on the above date and was hospitalized for further evaluation of their emergent condition. - New Patient This patient is new to me today: No - Critical Care Critical Care patient: No - Discharge Referral Referred to [facility] Med P.C.: No ATTENDING PHYSICIAN STATEMENT I saw and evaluated the patient. I reviewed the resident's note and discussed the case with the resident. I agree with the resident's findings and plan as documented. SUBJECTIVE: OBJECTIVE: ASSESSMENT AND PLAN:
[2020-04-05] MEDS ORDERED: ENOXAPARIN NA (PORCINE) 30 MG/0.3 ML DISP.SYRIN SQ ONE (22:01)
[2020-04-05] MEDS ORDERED: ENOXAPARIN NA (PORCINE) 80 MG/0.8 ML DISP.SYRIN SQ ONE (22:01)
[2020-04-06] MEDS ORDERED: PIPERACILLIN/TAZOBACTAM 3.375 GM VIAL IVPB ONE ×4 (02:14→17:44)
[2020-04-06] MEDS ORDERED: DEXTROSE 5%-WATER - 50 ML IVPB ONE ×3 (02:15→17:44)
[2020-04-06] MEDS: ASCORBIC ACID 250 MG TABLET (FP) PO SCH ×3 (02:25→22:04)
[2020-04-06] MEDS: PIPERACILLIN/TAZOB 3.375 GM 3.375 GM in DEXTROSE 5%-WATER - 50 ML IVPB SCH ×3 (02:25→17:51)
--- NOTE | 2020-04-06 07:44 | PN ---
Progress Note, Physician History of Present Illness: says he is feeling better repeat covid is pending - Current Medication List Current Medications: Active Medications Ascorbic Acid (Vitamin C -) 250 mg PO BID [facility] Last Admin: 04/06/20 02:25 Dose: 250 mg Documented by: Dexamethasone 4 mg/ (Dexamethasone 2 mg) 6 mg PO DAILY [facility] Last Admin: 04/05/20 14:28 Dose: Not Given Documented by: Enoxaparin Sodium 80 mg/ (Enoxaparin Sodium 30 mg) 110 mg SQ BID [facility] Last Admin: 04/05/20 22:03 Dose: 110 mg Documented by: Famotidine (Pepcid -) 20 mg PO DAILY [facility] Last Admin: 04/05/20 10:18 Dose: 20 mg Documented by: Azithromycin 250 mg/ Dextrose 250 mls @ 250 mls/hr IVPB DAILY [facility] Last Admin: 04/05/20 10:18 Dose: 250 mls/hr Documented by: Piperacillin Sod/Tazobactam (Sod 3.375 gm/ Dextrose) 50 mls @ 100 mls/hr IVPB Q8H-IV [facility]; Protocol Last Admin: 04/06/20 02:25 Dose: 100 mls/hr Documented by: Zinc Sulfate (Orazinc -) 220 mg PO BID [facility] Last Admin: 04/05/20 22:03 Dose: 220 mg Documented by: - Objective Vital Signs: Vital Signs Temperature 97.7 F 04/06/20 06:00 Pulse Rate 80 04/06/20 06:00 Respiratory Rate 20 04/06/20 06:00 Blood Pressure 101/65 04/06/20 06:00 O2 Sat by Pulse Oximetry (%) 99 04/06/20 06:00 Constitutional: Yes: No Distress, Calm, Obese Cardiovascular: Yes: S1, S2 Respiratory: Yes: Regular, Rhonchi Gastrointestinal: Yes: Normal Bowel Sounds, Soft Musculoskeletal: Yes: WNL Extremities: Yes: WNL Neurological: Yes: Alert, Oriented Psychiatric: Yes: Alert, Oriented Labs: CBC, BMP 04/05/20 07:50 04/05/20 07:50 INR, PTT INR 1.44 (0.83-1.09) H 04/04/20 16:46 Assessment/Plan 24M opioid dependence(methadone 100mg, Clinic at [facility], gets weekly Rx) BIBfather to [facility], for evaluation of persistent fatigue, subjective fever/chills, SOB x1week. Constellation of symptoms, elevated inflammatory markers, and CTA chest are highly suggestive of COVID19. Admitted d/t to desaturating while ambulating(89%). r/o covid increased d dimer leukocytosis anxiety chronic opoid usage plan continue abx await for repeat covid testing close watch await for labs f
[2020-04-06 08:04] LABS: BASO % 0.4 % (0-2.0); EOS % 1.3 % (0-4.5); HEMATOCRIT 35.1 % (35.4-49); HEMOGLOBIN 11.3 GM/dL (11.7-16.9); LYMPH % 31.1 % (8-40); MCHC 32.3 g/dl (32.0-35.9); MEAN CELL VOLUME 80.4 fl (80-96); MONO % 7.2 % (3.8-10.2); PLATELET COUNT 318 K/MM3 (134-434); RBC 4.36 M/mm3 (4.00-5.60); RDW 14.1 % (11.9-15.9); WHITE BLOOD COUNT 11.4 K/mm3 (4.0-10.0)
[2020-04-06 08:36] LABS: ALBUMIN 2.6 g/dl (3.4-5.0); BILIRUBIN,TOTAL 0.4 mg/dL (0.2-1); BLOOD UREA NITROGEN 16.1 mg/dL (7-18); CALCIUM 8.3 mg/dL (8.5-10.1); CREATININE 0.7 mg/dL (0.55-1.3); MAGNESIUM 2.6 mg/dL (1.8-2.4); PHOSPHOROUS 4.4 mg/dL (2.5-4.9); POTASSIUM 3.5 mmol/L (3.5-5.1); TOT PROT 6.7 g/dl (6.4-8.2)
[2020-04-06] MEDS ORDERED: ENOXAPARIN NA (PORCINE) 30 MG/0.3 ML DISP.SYRIN SQ ONE ×3 (09:54→21:52)
[2020-04-06] MEDS ORDERED: ENOXAPARIN NA (PORCINE) 80 MG/0.8 ML DISP.SYRIN SQ ONE ×2 (09:54→21:44)
[2020-04-06] MEDS ORDERED: PT OWN MED DRAWER 7, Y5N ONE ×2 (09:55→21:44)
[2020-04-06] MEDS: FAMOTIDINE 20 MG TABLET PO SCH (10:03)
[2020-04-06] MEDS: ENOXAPARIN 80 MG, ENOXAPARIN 30 MG SQ SCH ×2 (10:03→22:03)
[2020-04-06] MEDS: ZINC SULFATE 220 MG CAPSULE (FP) PO SCH ×2 (10:03→22:04)
[2020-04-06] MEDS: DEXAMETHASONE 4 MG, DEXAMETHASONE 2 MG PO SCH (10:04)
[2020-04-06] MEDS: AZITHROMYCIN IVPB 250 MG in DEXTROSE 5%-WATER - 250 ML IVPB SCH (11:29)
[2020-04-06] MEDS ORDERED: METHADONE HCL 40 MG DISPERSABLE TABLET PO SCH (12:15)
[2020-04-06] MEDS ORDERED: METHADONE HCL 10 MG TABLET ONE (12:48)
[2020-04-06] MEDS ORDERED: METHADONE HCL 40 MG DISPERSABLE TABLET ONE (12:48)
[2020-04-06] MEDS: METHADONE 80 MG, METHADONE 20 MG PO SCH (12:54)
[2020-04-06 12:56] LABS: ANISOCYTOSIS 1+; MACROCYTOSIS 0; PLATELET ESTIMATE NORMAL
--- NOTE | 2020-04-06 14:50 | PN ---
Teaching Attending Note Name of Resident: Joie Ocampo ATTENDING PHYSICIAN STATEMENT I saw and evaluated the patient. I reviewed the resident's note and discussed the case with the resident. I agree with the resident's findings and plan as documented. SUBJECTIVE: Seen and examined at bedside. COVID PCR Negative x2. Antibody positive. Pa tient saturating 93% on room air. Patient was told he could go home but does not feel comfortable going home today. Will plan for discharge tomorrow. OBJECTIVE Last Vital Signs Temp Pulse Resp BP Pulse Ox 97.5 F L 61 18 101/58 L 100 04/05/20 08:36 04/05/20 08:36 04/05/20 08:53 04/05/20 08:36 04/05/20 08:53 PE: Per resident note Labs/Imaging: reviewed ASSESSMENT/PLAN 24-year-old male history of anxiety, opioid dependence on methadone, presented with fatigue, malaise, subjective fevers and chills, shortness of breath, poor appetite and loss of taste, times one 1 week. Found to be hypoxic with bilateral infiltrates on CT. Admitted for community-acquired pneumonia with high concern for COVID. #Hypoxic respiratory failure High concern for COVID given consistent imaging findings, labs, symptoms. COVID PCR neg x2, ab + Repeat COVID cont abx x5 days for empiric CAP tx Continue AC tx Continue steroids Oxygen as needed #Elevated d-dimer: Downtrending Negative DVT/PE Most likely secondary to COVID despite negative COVID PCR #Chronic opioid use disorder Reports 100 mg of methadone daily Follows with [facility] #Chronic anxiety Prescription monitoring program checked. Dose of clonazepam 2 mg daily for anxiety confirmed 2 mg Klonopin daily DVTppx: tx dose lovenox
--- NOTE | 2020-04-06 16:54 | PN ---
Physical Exam: SUBJECTIVE: Patient seen and examined at bedside. No acute events overnight. Pt reports improvement in breathing. OBJECTIVE: Vital Signs Period Temp Pulse Resp BP Sys/Schmidt Pulse Ox Last 24 Hr 97.4 F-98.3 F 67-102 20-20 101-119/62-72 92-100 GENERAL: The patient is awake, alert, and fully oriented, in mild resp. distress. HEAD: Normal with no signs of trauma. EYES: Sclera anicteric, conjunctiva clear. ENT: Moist mucous membranes. NECK: Trachea midline, full range of motion, supple. LUNGS: Breath sounds equal, clear to auscultation bilaterally, no wheezes, no crackles, no accessory muscle use. HEART: Regular rate and rhythm, S1, S2 without murmur ABDOMEN: Soft, nontender, nondistended, normoactive bowel sounds, no guarding, no rebound, no hepatosplenomegaly, no masses. EXTREMITIES: 2+ dorsal pedal pulses, warm, no calf tenderness, well-perfused, no edema. NEUROLOGICAL: No focal deficits, Normal speech, gait not observed. PSYCH: Normal mood, normal affect. SKIN: Warm, diaphoretic, normal turgor, no rashes or lesions noted Laboratory Results - last 24 hr 04/04/20 04/05/20 04/05/20 16:46 07:15 07:50 WBC RBC Hgb Hct MCV MCH MCHC RDW Plt Count MPV Absolute Neuts (auto) Neutrophils % Neutrophils % (Manual) Band Neutrophils % Lymphocytes % Lymphocytes % (Manual) Monocytes % Monocytes % (Manual) Eosinophils % Eosinophils % (Manual) Basophils % Basophils % (Manual) Myelocytes % (Man) Promyelocytes % (Man) Blast Cells % (Manual) Nucleated RBC % Metamyelocytes Hypochromia Platelet Estimate Polychromasia Poikilocytosis Anisocytosis Microcytosis Macrocytosis D-Dimer Sodium Potassium Chloride Carbon Dioxide Anion Gap BUN Creatinine Est GFR (CKD-EPI)AfAm Est GFR (CKD-EPI)NonAf Random Glucose Calcium Phosphorus Magnesium Ferritin Total Bilirubin AST ALT Alkaline Phosphatase LD Total C-Reactive Protein 17.6 H 15.7 H Total Protein Albumin COVID-19 (VI) SARS-CoV-2 Ab Interp Reactive 04/05/20 04/06/20 04/06/20 15:20 07:15 07:15 WBC 11.4 H RBC 4.36 Hgb 11.3 L Hct 35.1 L MCV 80.4 MCH 26.0 MCHC 32.3 RDW 14.1 Plt Count 318 MPV 9.0 Absolute Neuts (auto) 6.8 Neutrophils % 60.0 D Neutrophils % (Manual) 48.5 D Band Neutrophils % 0.0 Lymphocytes % 31.1 D Lymphocytes % (Manual) 44.5 H D Monocytes % 7.2 Monocytes % (Manual) 3 L Eosinophils % 1.3 D Eosinophils % (Manual) 1.0 D Basophils % 0.4 Basophils % (Manual) 0.0 Myelocytes % (Man) 1 Promyelocytes % (Man) 0 Blast Cells % (Manual) 0 Nucleated RBC % 0 Metamyelocytes 0 D Hypochromia 1+ Platelet Estimate Normal Polychromasia 1+ Poikilocytosis 0 Anisocytosis 1+ Microcytosis 1+ Macrocytosis 0 D-Dimer Sodium 139 Potassium 3.5 Chloride 102 Carbon Dioxide 30 Anion Gap 7 L BUN 16.1 Creatinine 0.7 Est GFR (CKD-EPI)AfAm 152.02 Est GFR (CKD-EPI)NonAf 131.16 Random Glucose 84 Calcium 8.3 L Phosphorus 4.4 Magnesium 2.6 H Ferritin 328.4 Total Bilirubin 0.4 AST 44 H ALT 74 H Alkaline Phosphatase 140 H LD Total 199 C-Reactive Protein 8.8 H Total Protein 6.7 Albumin 2.6 L COVID-19 (VI) Not detected SARS-CoV-2 Ab Interp 04/06/20 07:15 WBC RBC Hgb Hct MCV MCH MCHC RDW Plt Count MPV Absolute Neuts (auto) Neutrophils % Neutrophils % (Manual) Band Neutrophils % Lymphocytes % Lymphocytes % (Manual) Monocytes % Monocytes % (Manual) Eosinophils % Eosinophils % (Manual) Basophils % Basophils % (Manual) Myelocytes % (Man) Promyelocytes % (Man) Blast Cells % (Manual) Nucleated RBC % Metamyelocytes Hypochromia Platelet Estimate Polychromasia Poikilocytosis Anisocytosis Microcytosis Macrocytosis D-Dimer 1287 H Sodium Potassium Chloride Carbon Dioxide Anion Gap BUN Creatinine Est GFR (CKD-EPI)AfAm Est GFR (CKD-EPI)NonAf Random Glucose Calcium Phosphorus Magnesium Ferritin Total Bilirubin AST ALT Alkaline Phosphatase LD Total C-Reactive Protein Total Protein Albumin COVID-19 (VI) SARS-CoV-2 Ab Interp Active Medications Generic Name Dose Route Start Last Admin Trade Name Aubrey PRN Reason Stop Dose Admin Ascorbic Acid 250 mg 04/05/20 10:00 04/06/20 10:03 Vitamin C - PO 250 mg BID VINI Administration Dexamethasone 4 mg/ 6 mg 04/05/20 13:15 04/06/20 10:04 Dexamethasone 2 mg PO 6 mg DAILY VINI Administration Enoxaparin Sodium 80 mg/ 110 mg 04/05/20 10:00 04/06/20 10:03 Enoxaparin Sodium 30 mg SQ 110 mg BID VINI Administration Famotidine 20 mg 04/05/20 10:00 04/06/20 10:03 Pepcid - PO 20 mg DAILY VINI Administration Azithromycin 250 mg/ Dextrose 250 mls @ 250 mls/hr 04/05/20 10:00 04/06/20 11:29 IVPB 250 mls/hr DAILY VINI Administration Piperacillin Sod/Tazobactam 50 mls @ 100 mls/hr 04/05/20 18:00 04/06/20 10:03 Sod 3.375 gm/ Dextrose IVPB 100 mls/hr Q8H-IV VINI Administration Protocol Methadone HCl 80 mg/ Methadone 100 mg 04/06/20 12:15 04/06/20 12:54 HCl 20 mg PO Not Given 0600 VINI Zinc Sulfate 220 mg 04/05/20 10:00 04/06/20 10:03 Orazinc - PO 220 mg BID VINI Administration ASSESSMENT/PLAN: 24M w/ pmhx of anxiety, opioid dependence (on methadone), presenting with fatigue, malaise, subjective fevers and chills, shortness of breath, poor appetite and loss of taste, times one 1 week. Found to be hypoxic with bilateral infiltrates on CT. Admitted for community-acquired pneumonia with high concern for COVID. #Hypoxic respiratory failure -High concern for COVID given consistent imaging findings, labs, symptoms. Initial COVID test negative, but Pt.s states swab was incorrectly done and only tested nares. f/u Rpt. COVID, however will treat as COVID despite test results as Pt. has high pre-test probability. Continue azithromycin/ceftriaxone, Zinc Continue therapeutic Lovenox, discussed w/ Pt. that because he is requiring O2 may bee to discharge on at least 2 weeks to a month of AC Dexamethasone 6 QD Oxygen as needed -Daily inflammatory markers -If pt requires escalating oxygenation will consider Remdesivir, convalescent plasma and/or Tocilizumab as per ID #Elevated d-dimer: Downtrending Negative DVT/PE Most likely secondary to COVID despite negative COVID PCR #Chronic opioid use disorder -100 mg of methadone daily; confirmed at [facility] #Chronic anxiety Prescription monitoring program checked. Dose of clonazepam 2 mg daily for anxiety confirmed 1 mg Klonopin BID #Prophylaxis DVT: Therapeutic Lovenox GI: Pepcid 20 #Dispo -c/w monitoring in isolation with continuous pulse oximetry monitoring -d/c planning tomorrow Visit type - Emergency Visit Emergency Visit: Yes ED Registration Date: 04/04/20 Care time: The patient presented to the Emergency Department on the above date and was hospitalized for further evaluation of their emergent condition. - New Patient This patient is new to me today: Yes Date on this admission: 04/06/20 - Critical Care Critical Care patient: No - Discharge Referral Referred to [facility] Med P.C.: Yes ATTENDING PHYSICIAN STATEMENT I saw and evaluated the patient. I reviewed the resident's note and discussed the case with the resident. I agree with the resident's findings and plan as documented. SUBJECTIVE: OBJECTIVE: ASSESSMENT AND PLAN:
[2020-04-07] MEDS ORDERED: DEXTROSE 5%-WATER - 50 ML IVPB ONE ×2 (01:06→09:35)
[2020-04-07] MEDS ORDERED: PIPERACILLIN/TAZOBACTAM 3.375 GM VIAL IVPB ONE ×2 (01:06→09:35)
[2020-04-07] MEDS: PIPERACILLIN/TAZOB 3.375 GM 3.375 GM in DEXTROSE 5%-WATER - 50 ML IVPB SCH ×2 (01:45→09:40)
[2020-04-07] MEDS ORDERED: METHADONE HCL 10 MG TABLET ONE (05:11)
[2020-04-07] MEDS ORDERED: METHADONE HCL 40 MG DISPERSABLE TABLET ONE (05:12)
[2020-04-07] MEDS: METHADONE 80 MG, METHADONE 20 MG PO SCH (05:25)
[2020-04-07 06:59] VITALS: BP 125/72; PULSE 52; TEMP 98
[2020-04-07 08:03] LABS: HEMATOCRIT 36.4 % (35.4-49); HEMOGLOBIN 11.6 GM/dL (11.7-16.9); MCH 26.1 pg (25.7-33.7); MCHC 31.8 g/dl (32.0-35.9); MEAN PLT VOLUME 8.9 fl (7.5-11.1); PLATELET COUNT 380 K/MM3 (134-434); RBC 4.44 M/mm3 (4.00-5.60); RDW 14.3 % (11.9-15.9)
[2020-04-07 08:36] LABS: POTASSIUM 4.3 mmol/L (3.5-5.1)
[2020-04-07 08:53] LABS: BLOOD UREA NITROGEN 11.5 mg/dL (7-18); CALCIUM 8.5 mg/dL (8.5-10.1); CREATININE 0.6 mg/dL (0.55-1.3)
--- NOTE | 2020-04-07 09:22 | PN ---
Progress Note, Physician - Current Medication List Current Medications: Active Medications Ascorbic Acid (Vitamin C -) 250 mg PO BID [facility] Last Admin: 04/06/20 22:04 Dose: 250 mg Documented by: Dexamethasone 4 mg/ (Dexamethasone 2 mg) 6 mg PO DAILY [facility] Last Admin: 04/06/20 10:04 Dose: 6 mg Documented by: Enoxaparin Sodium 80 mg/ (Enoxaparin Sodium 30 mg) 110 mg SQ BID [facility] Last Admin: 04/06/20 22:03 Dose: 110 mg Documented by: Famotidine (Pepcid -) 20 mg PO DAILY [facility] Last Admin: 04/06/20 10:03 Dose: 20 mg Documented by: Azithromycin 250 mg/ Dextrose 250 mls @ 250 mls/hr IVPB DAILY [facility] Last Admin: 04/06/20 11:29 Dose: 250 mls/hr Documented by: Piperacillin Sod/Tazobactam (Sod 3.375 gm/ Dextrose) 50 mls @ 100 mls/hr IVPB Q8H-IV [facility]; Protocol Last Admin: 04/07/20 01:45 Dose: 100 mls/hr Documented by: Methadone HCl 80 mg/ Methadone (HCl 20 mg) 100 mg PO 0600 [facility] Last Admin: 04/07/20 05:25 Dose: 100 mg Documented by: Zinc Sulfate (Orazinc -) 220 mg PO BID [facility] Last Admin: 04/06/20 22:04 Dose: 220 mg Documented by: - Objective Vital Signs: Vital Signs Temperature 98 F 04/07/20 06:58 Pulse Rate 52 L 04/07/20 06:58 Respiratory Rate 20 04/07/20 06:58 Blood Pressure 125/72 04/07/20 06:58 O2 Sat by Pulse Oximetry (%) 94 L 04/07/20 06:58 Labs: CBC, BMP 04/07/20 07:40 04/07/20 07:40 INR, PTT INR 1.44 (0.83-1.09) H 04/04/20 16:46
[2020-04-07] MEDS ORDERED: ENOXAPARIN NA (PORCINE) 80 MG/0.8 ML DISP.SYRIN SQ ONE (09:34)
[2020-04-07] MEDS ORDERED: ENOXAPARIN NA (PORCINE) 30 MG/0.3 ML DISP.SYRIN SQ ONE (09:34)
[2020-04-07] MEDS ORDERED: PT OWN MED DRAWER 7, Y5N ONE (09:35)
[2020-04-07] MEDS: ENOXAPARIN 80 MG, ENOXAPARIN 30 MG SQ SCH (09:40)
[2020-04-07] MEDS: ZINC SULFATE 220 MG CAPSULE (FP) PO SCH (09:40)
[2020-04-07] MEDS: FAMOTIDINE 20 MG TABLET PO SCH (09:40)
[2020-04-07] MEDS: DEXAMETHASONE 4 MG, DEXAMETHASONE 2 MG PO SCH (09:40)
[2020-04-07] MEDS: ASCORBIC ACID 250 MG TABLET (FP) PO SCH (09:41)
[2020-04-07] MEDS: AZITHROMYCIN IVPB 250 MG in DEXTROSE 5%-WATER - 250 ML IVPB SCH (10:27)
--- NOTE | 2020-04-07 13:56 | DS ---
Physical Exam: SUBJECTIVE: Patient seen and examined at bedside patient states that he is feeling better; he did not require any oxygen overnight and is anxious to go home- he denies any chest pain SOB NV OBJECTIVE: Vital Signs Period Temp Pulse Resp BP Sys/Schmidt Pulse Ox Last 24 Hr 97.5 F-98.3 F 52-74 20-20 100-125/52-72 92-98 PHYSICAL EXAM GENERAL: The patient is awake, alert, and fully oriented, in no acute distress. EYES: PEERLA: EOMI no scleral icterus NECK: no JVD no lymphadenopathy LUNGS: CTA B/L no rales, rjhonchi or wheezing HEART: Regular rate and rhythm, S1, S2 without murmur, rub or gallop. ABDOMEN: Soft, NT ND +BS in all 4 quadrants NEUROLOGICAL: Cranial nerves II through XII grossly intact. Normal speech, gait not observed. PSYCH: Normal mood, normal affect. SKIN: Warm, dry, normal turgor, no rashes or lesions noted. LABS Laboratory Results - last 24 hr 04/07/20 04/07/20 07:40 07:40 WBC 13.0 H RBC 4.44 Hgb 11.6 L Hct 36.4 MCV 82.0 MCH 26.1 MCHC 31.8 L RDW 14.3 Plt Count 380 MPV 8.9 Sodium 136 Potassium 4.3 Chloride 102 Carbon Dioxide 25 Anion Gap 9 BUN 11.5 Creatinine 0.6 Est GFR (CKD-EPI)AfAm 161.96 Est GFR (CKD-EPI)NonAf 139.74 Random Glucose 79 Calcium 8.5 chest CTA: extensive ground glass opacities involving the lower lobes concern for covid pneumonitis HOSPITAL COURSE: Date of Admission:04/04/20 24M chronic anxiety, opioid dependence(methadone 100mg, Clinic at [facility], gets weekly Rx) [facility]IB[facility] to [facility], for evaluation of persistent fatigue, subjective fever/chills, SOB x1week. patients COVID PCR was negative however his antibodies were positive; he was started on AC (lovenox), zosyn and azithro, vitc c/d and decadron- he only required minimal oxygen use while he was here and was discharged home within three days with strict isolation precaution instructions Date of Discharge: 04/07/20 Minutes to complete discharge: 25 Discharge Summary Problems reviewed: Yes Reason For Visit: URINARY TRACT INFECTION,SHORTNESS OF BREATH Current Active Problems COVID-19 (Acute) Hypoxia (Acute) Condition: Improved - Instructions Diet, Activity, Other Instructions: You were seen in the hospital for complaints of shortness of breath. Although you tested negative for COVID-19, you had symptoms that were highly suspicious for the infection. You were seen by the infectious disease doctor and treated with IV antibiotics. During your hospital stay, your symptoms improved. You are now stable for discharge home. Medications We have made the following changes to your medications: Please take the antibiotic, Augmentin twice a day for two more days (04/08-04/09) Please continue taking the steroid decadron 6mg once a day for 5 more days (04/08-04/13) Please START Zinc 220 mg twice a day by mouth for 1 month. Please START Ascorbic acid (Vitamin C) 250 mg twice a day by mouth for 1 month. Please take the blood thinner, Eliquis, 5mg twice a day for 3 weeks- take note if you notice any increasing in bruising, bleeding and stay away from contact sports Follow Up Please follow up with your primary care physician within 1 week. Please follow up with your infectious disease doctor, Dr. Fisher within 1 week. You will need to quarantine yourself for a total of 14 days from the onset of your symptoms until 04/11. Please wear a mask when you go outside and remember to wash your hands *if you experience worsening shortness of breath, fevers, chills, nausea/vomiting please return to the emergency room immediately Referrals: Delano Dixon MD [Staff Physician] - Sophy Fisher MD [Staff Physician] - Disposition: HOME - Home Medications Comprehensive Discharge Medication List: Ambulatory Orders Clonazepam [Klonopin] 1 mg PO BID 04/04/20 Methadone [Dolophine -] 100 mg PO DAILY@0600 04/04/20 Ascorbic Acid [Vitamin C -] 250 mg PO BID #60 tablet 04/06/20 Zinc Sulfate [Orazinc -] 220 mg PO BID #60 capsule 04/06/20 Amoxicillin/Potassium Clav [Augmentin 875-125 Tablet] 1 each PO BID #5 tablet 04/07/20 Apixaban [Eliquis] 5 mg PO BID #42 tablet 04/07/20 Dexamethasone [Decadron -] 6 mg PO DAILY #6 tablet 04/07/20 Problem List - Problems (1) COVID-19 Code(s): U07.1 - COVID POSITIVE (2) Hypoxia Code(s): R09.02 - HYPOXEMIA This patient is new to me today: Yes Date on this admission: 04/07/20 Emergency Visit: Yes ED Registration Date: 04/04/20 Care time: The patient presented to the Emergency Department on the above date and was hospitalized for further evaluation of their emergent condition. Critical Care patient: No - Discharge Referral Referred to [facility] Med P.C.: No ATTENDING PHYSICIAN STATEMENT I saw and evaluated the patient. I reviewed the resident's note and discussed the case with the resident. I agree with the resident's findings and plan as documented. SUBJECTIVE: OBJECTIVE: ASSESSMENT AND PLAN:
--- NOTE | 2020-04-07 14:41 | PN ---
Teaching Attending Note Name of Resident: Jody Rod ATTENDING PHYSICIAN STATEMENT I saw and evaluated the patient. I reviewed the resident's note and discussed the case with the resident. I agree with the resident's findings and plan as documented. SUBJECTIVE: Seen and examined at bedside. Comfortable and satting well on RA. Will DC today on steroids for total 10 days, augmentin for total abx x5 days, and 3 weeks of eloquis for total ~1 month AC OBJECTIVE Last Vital Signs Temp Pulse Resp BP Pulse Ox 97.5 F L 61 18 101/58 L 100 04/05/20 08:36 04/05/20 08:36 04/05/20 08:53 04/05/20 08:36 04/05/20 08:53 PE: Per resident note Labs/Imaging: reviewed ASSESSMENT/PLAN 24-year-old male history of anxiety, opioid dependence on methadone, presented with fatigue, malaise, subjective fevers and chills, shortness of breath, poor appetite and loss of taste, times one 1 week. Found to be hypoxic with bilateral infiltrates on CT. Patient's labs, clinical presentation, hypoxia all consistent with acute COVID, however PCR negative x2. COVID antibody was positive. Negative PCR's are believed to represent a false negative results. Patient now stable on room air and will be discharged on 10 days of dexamethasone, 5 days of antibiotics, and 1 month of anticoagulation. Patient was instructed to self quarantine for the next week for a total of 2 weeks.
== END 2020-04-07 14:56 | disposition home or self-care (01) | DRG 137 ==
LOC: JER 15:28 → JERBED 18:13 → J8W 04-05 21:04
PROVIDERS: ADMIT Internal Medicine; ATTEND Internal Medicine
PROC: 8E0ZXY6 Isolation (ICD-10-PCS; principal; 2020-04-04)
DX: U07.1 COVID-19 (principal); F11.20 Opioid dependence, uncomplicated; J12.89 Other viral pneumonia; E88.09 Other disorders of plasma-protein metabolism, not elsewhere classified; E66.9 Obesity, unspecified; Z68.35 Body mass index [BMI] 35.0-35.9, adult; F41.9 Anxiety disorder, unspecified; J96.91 Respiratory failure, unspecified with hypoxia
CPT/HCPCS: 36415; 71045-TC-FY; 71275-TC; 80048; 80053; 81003; 82248; 82550; 82553; 82728; 82803; 83615; 83735; 84100; 84484; 85025; 85027; 85379; 85610; 85730; 86140; 86769; 93005; 93010; 93970-TC; 94010; 94761; 97116-GP; 97161-GP; 99285-25; J1100; J8540; Q9967; U0003

== ENCOUNTER 2020-04-23 19:35 | Emergency (ER) | payer OTHER ==
[2020-04-23 19:48] VITALS: BP 125/81; PULSE 132; TEMP 97; BMI 32.4
--- NOTE | 2020-04-23 20:09 | PDOC ---
Attending Attestation - Resident Resident Name: Josue Shirley - ED Attending Attestation I have performed the following: I have examined & evaluated the patient, The case was reviewed & discussed with the resident, I agree w/resident's findings & plan - HPI HPI: 04/23/20 20:56 Pt works at the [employer] and he was sent home because he tested + for COVID. Pt wants to go home. He was told her needs to checkin at an ER. Pt wants to AMA. He has no complaints. Vitals tachycardic because he is agitated that he needs to be here. - Physicial Exam PE: 04/23/20 20:58 Normal exam pt obese. normal skin afebrile pt is well kempt. neurologically intact - Medical Decision Making 04/23/20 20:58 Pt will sign AMA; he is refusing blood tests. UA or a detailed exam Discharge - Discharge Information Problems reviewed: Yes Clinical Impression/Diagnosis: Leg pain Qualifiers: Laterality: right Qualified Code(s): M79.604 - Pain in right leg Disposition: AGAINST MEDICAL ADVICE - Follow up/Referral Referrals: [facility] [place] [facility] at [place] [Provider Group] - Patient Discharge Instructions - Post Discharge Activity
--- NOTE | 2020-04-23 20:22 | PDOC ---
History of Present Illness - General Chief Complaint: Pain Stated Complaint: PAIN Time Seen by Provider: 04/23/20 20:03 - History of Present Illness Initial Comments: 04/28/20 13:04 24yo M w/ hx of unspecified behavioral issues and COVID 2 weeks ago, discharged from this hospital last week after recovering, presents after being sent here by urgent care. He was at work today and was sent to urgent care becuase his boss noticed him looking sweaty and very pale. He went to urgent care and reported R quad pain and "intermittent heavy breathing on exertion." He was then sent here for "leg pain w/ chest pain." On presentation he denies chest pain but does endorse numbness to the R quad area. He states this started after his DC from the hospital when he was treated for COVID. The area is the size of a fist on the anterolateral right thigh. It has not worsened or been painful at all. Noticed by attending, RN, and resident: PT is pacing, avoiding eye contact, and explaining history very circuitously. Seems unclear of why he is here. Past History - Medical History Allergies/Adverse Reactions: Allergies Allergy/AdvReac Type Severity Reaction Status Date / Time No Known Allergies Allergy Verified 04/04/20 15:40 Home Medications: Ambulatory Orders Clonazepam [Klonopin] 1 mg PO BID 04/04/20 Methadone [Dolophine -] 100 mg PO DAILY@0600 04/04/20 Ascorbic Acid [Vitamin C -] 250 mg PO BID #60 tablet 04/06/20 Zinc Sulfate [Orazinc -] 220 mg PO BID #60 capsule 04/06/20 Amoxicillin/Potassium Clav [Augmentin 875-125 Tablet] 1 each PO BID #5 tablet 04/07/20 Apixaban [Eliquis] 5 mg PO BID #42 tablet 04/07/20 Dexamethasone [Decadron -] 6 mg PO DAILY #6 tablet 04/07/20 Anemia: No Asthma: No Cancer: No Cardiac Disorders: No CVA: No COPD: No CHF: No Dementia: No Diabetes: No GI Disorders: No Disorders: No HTN: No Hypercholesterolemia: No Kidney Stones: No Liver Disease: No Psychiatric Problems: Yes Seizures: No Thyroid Disease: No Other medical history: methadone - Surgical History Abdominal Surgery: No Appendectomy: No Cardiac Surgery: No Cholecystectomy: No Lung Surgery: No Neurologic Surgery: No Orthopedic Surgery: Yes (L KNEE FX REPAIR WITH HARDWARE) - Reproductive History Testicular Surgery: Yes (left orchiectomy) - Psycho-Social/Smoking History Smoking History: Current every day smoker Have you smoked in the past 12 months: Yes Number of Cigarettes Smoked Daily: 20 Cigars Per Day: 0 Information on smoking cessation initiated: No 'Breaking Loose' booklet given: 07/05/18 - Substance Abuse Hx (Audit-C & DAST Scrn) In the last yr the pt used illegal drug/Rx for NonMed reason: Yes Score: Yes response is considered Positive: 1 Screen Result (Positive result requires Nsg. DAST-10): Positive Review of Systems - Review of Systems Able to Perform ROS?: Yes Is the patient limited Romanian proficient: No Constitutional: Yes: Diaphoresis. No: Chills, Fever HEENTM: No: Eye Pain, Blurred Vision, Recent change in vision, Tinnitus, Throat Pain Respiratory: No: Cough, Shortness of Breath, SOB with Exertion, Productive cough, Hemoptysis Cardiac (ROS): No: Chest Pain, Edema ABD/GI: No: Abdominal Distended, Constipated, Diarrhea, Poor Appetite, Vomiting : No: Burning, Dysuria, Flank Pain, Hematuria Musculoskeletal: No: Back Pain Integumentary: Yes: Other. No: Rash Neurological: Yes: Numbness (of small spot on the R thigh). No: Paresthesia, Tingling, Tremors, Weakness, Dizziness Endocrine: Yes: Unexplained Weight Loss. No: Symptoms Reported Hematologic/Lymphatic: No: Symptoms Reported All Other Systems: Reviewed and Negative *Physical Exam - Vital Signs Last Vital Signs Temp Pulse Resp BP Pulse Ox 97 F L 132 H 18 125/81 98 04/23/20 19:42 04/23/20 19:42 04/23/20 19:42 04/23/20 19:42 04/23/20 19:42 - Physical Exam General Appearance: Yes: Nourished, Appropriately Dressed, Other (nervous, uneasy, pupils not dilated or pinpointed. ). No: Apparent Distress HEENT: positive: EOMI, ELAINE, Normal Voice, Other (normal pupils) Neck: positive: Trachea midline, Supple. negative: Tender, Carotid bruit, Lymphadenopathy (R), Lymphadenopathy (L) Respiratory/Chest: positive: Lungs Clear, Normal Breath Sounds. negative: Respiratory Distress Cardiovascular: positive: Regular Rhythm, Tachycardia Gastrointestinal/Abdominal: positive: Normal Bowel Sounds, Soft. negative: Organomegaly Musculoskeletal: positive: Normal Inspection. negative: CVA Tenderness Extremity: positive: Normal Capillary Refill, Normal Inspection, Normal Range of Motion Integumentary: positive: Normal Color, Warm, Moist Medical Decision Making - Medical Decision Making Recommended basic labs + thyroid but pt declined and AMA'ed. Discharge - Discharge Information Problems reviewed: Yes Clinical Impression/Diagnosis: Leg pain Qualifiers: Laterality: right Qualified Code(s): M79.604 - Pain in right leg Disposition: AGAINST MEDICAL ADVICE - Admission No - Follow up/Referral Referrals: [facility] [place] [facility] at [place] [Provider Group] - Patient Discharge Instructions - Post Discharge Activity
[2020-04-23] MEDS ORDERED: SODIUM CHLORIDE 1,000 ML IV SCH (20:30)
== END 2020-04-23 21:16 | disposition left against medical advice (07) ==
LOC: JER 19:35
DX: M79.604 Pain in right leg (principal)
CPT/HCPCS: 99285-25

== ENCOUNTER 2021-10-11 18:50 | Inpatient (IN) | payer OTHER ==
[2021-10-11] MEDS ORDERED: ONDANSETRON *ODT* 4 MG TABLET SL PRN (21:52)
[2021-10-11] MEDS ORDERED: ACETAMINOPHEN 325 MG TABLET (FP) PO PRN ×2 (21:52)
[2021-10-11] MEDS ORDERED: LOPERAMIDE HCL 2 MG CAPSULE PO PRN (21:52)
[2021-10-11] MEDS ORDERED: IBUPROFEN 400 MG TABLET (FP) PO PRN (21:52)
[2021-10-11] MEDS ORDERED: cloNIDine HCL 0.1 MG TABLET PO PRN (21:52)
[2021-10-11] MEDS ORDERED: MAGNESIUM HYDROX 2400MG/30ML ORAL SUSPENSION 30 ML CUP PO PRN (21:52)
[2021-10-11] MEDS ORDERED: BISMUTH SUBSALICYLATE 524 MG/30 ML PO PRN (21:52)
[2021-10-11] MEDS ORDERED: methaDONE HCL 10 MG TABLET (FOR DETOX USE ONLY) PO ONE (21:52)
[2021-10-11] MEDS ORDERED: MAG HYDROX/AL HYDROX/SIMETH 30 ML UNIT-DOSE CUP PO PRN (21:52)
[2021-10-11] MEDS ORDERED: MAGNESIUM CITRATE 300 ML BOTTLE PO PRN (21:52)
[2021-10-11] MEDS ORDERED: MENTHOL/PHENOL 1 EACH UD MM PRN (21:52)
[2021-10-11] MEDS: MELATONIN 5 MG TABLETS PO SCH (23:57)
[2021-10-12 00:01] VITALS: BMI 35.3
[2021-10-12] MEDS ORDERED: methaDONE HCL 10 MG TABLET (FOR DETOX USE ONLY) ONE ×2 (00:07→09:08)
[2021-10-12] MEDS ORDERED: METHOCARBAMOL 500 MG TABLET ONE (00:08)
[2021-10-12] MEDS: METHOCARBAMOL 500 MG TABLET PO PRN (00:09)
[2021-10-12] MEDS: THIAMINE HCL 100 MG TABLET (FP) PO SCH ×2 (00:10→22:20)
[2021-10-12] MEDS: MELATONIN 5 MG TABLETS PO SCH (00:10)
[2021-10-12] MEDS: NICOTINE 10 MG CARTRIDGE (INHALER) IH PRN ×3 (01:07→22:19)
[2021-10-12] MEDS: NICOTINE 14 MG/24 HOURS TOPICAL PATCH TD SCH (10:11)
[2021-10-12] MEDS: PRENATAL VITAMINS W/ FOLIC ACID TABLET (FP) PO SCH (10:11)
[2021-10-12 11:05] LABS: HEMATOCRIT 37.2 % (35.4-49); MCH 26.3 pg (25.7-33.7); MCHC 32.2 g/dl (32.0-35.9); MEAN CELL VOLUME 81.6 fl (80-96); MEAN PLT VOLUME 7.7 fl (7.5-11.1); PLATELET COUNT 285 10^3/uL (134-434); RBC 4.56 M/mm3 (4.00-5.60); RDW 14.2 % (11.9-15.9); WHITE BLOOD COUNT 6.9 K/mm3 (4.0-10.0)
[2021-10-12 11:15] LABS: CALCIUM 9.1 mg/dL (8.5-10.1)
[2021-10-12 11:16] LABS: ALBUMIN 3.6 g/dl (3.4-5.0); BLOOD UREA NITROGEN 9.6 mg/dL (7-18)
[2021-10-12 11:19] LABS: CREATININE 0.8 mg/dL (0.55-1.3)
[2021-10-12 11:20] LABS: BILIRUBIN,TOTAL 0.8 mg/dL (0.2-1); TOT PROT 6.7 g/dl (6.4-8.2)
[2021-10-12] MEDS: diazePAM 5 MG TABLET PO PRN (22:20)
[2021-10-13 08:06] LABS: SARS-CoV-2 NAA Not Detected (Not Detected)
[2021-10-13 08:06] LABS: SARS-CoV-2 NAA Not Detected (Not Detected)
[2021-10-13] MEDS ORDERED: methaDONE HCL 10 MG TABLET (FOR DETOX USE ONLY) PO ONE (10:00)
[2021-10-13] MEDS: NICOTINE 14 MG/24 HOURS TOPICAL PATCH TD SCH (10:30)
[2021-10-13] MEDS: PRENATAL VITAMINS W/ FOLIC ACID TABLET (FP) PO SCH (10:30)
[2021-10-13] MEDS: METHOCARBAMOL 500 MG TABLET PO PRN (10:31)
[2021-10-13] MEDS: NICOTINE 10 MG CARTRIDGE (INHALER) IH PRN ×3 (10:34→22:35)
[2021-10-13 12:33] LABS: ALBUMIN 3.4 g/dl (3.4-5.0); BLOOD UREA NITROGEN 9.6 mg/dL (7-18)
[2021-10-13 12:35] LABS: CREATININE 0.8 mg/dL (0.55-1.3)
[2021-10-13 12:37] LABS: BILIRUBIN,TOTAL 0.6 mg/dL (0.2-1); TOT PROT 6.5 g/dl (6.4-8.2)
[2021-10-13] MEDS: MELATONIN 5 MG TABLETS PO SCH (22:34)
[2021-10-13] MEDS: THIAMINE HCL 100 MG TABLET (FP) PO SCH (22:34)
[2021-10-13] MEDS: diazePAM 5 MG TABLET PO PRN (22:36)
[2021-10-14] MEDS ORDERED: methaDONE HCL 10 MG TABLET (FOR DETOX USE ONLY) ONE (09:56)
[2021-10-14] MEDS: NICOTINE 14 MG/24 HOURS TOPICAL PATCH TD SCH (10:25)
[2021-10-14] MEDS: diazePAM 5 MG TABLET PO PRN ×3 (10:25→22:19)
[2021-10-14] MEDS: PRENATAL VITAMINS W/ FOLIC ACID TABLET (FP) PO SCH (10:25)
[2021-10-14] MEDS: NICOTINE 10 MG CARTRIDGE (INHALER) IH PRN ×3 (12:31→22:17)
[2021-10-14] MEDS: THIAMINE HCL 100 MG TABLET (FP) PO SCH (22:17)
[2021-10-14] MEDS: MELATONIN 5 MG TABLETS PO SCH (22:17)
[2021-10-15] MEDS ORDERED: methaDONE HCL 10 MG TABLET (FOR DETOX USE ONLY) PO ONE (10:00)
[2021-10-15] MEDS: NICOTINE 10 MG CARTRIDGE (INHALER) IH PRN ×3 (10:12→22:59)
[2021-10-15] MEDS: NICOTINE 14 MG/24 HOURS TOPICAL PATCH TD SCH (10:12)
[2021-10-15] MEDS: PRENATAL VITAMINS W/ FOLIC ACID TABLET (FP) PO SCH (10:12)
[2021-10-15] MEDS: MELATONIN 5 MG TABLETS PO SCH (22:59)
[2021-10-15] MEDS: METHOCARBAMOL 500 MG TABLET PO PRN (22:59)
[2021-10-15] MEDS: THIAMINE HCL 100 MG TABLET (FP) PO SCH (22:59)
[2021-10-16 09:42] VITALS: BP 134/79; PULSE 108; TEMP 97.9
[2021-10-16] MEDS: NICOTINE 14 MG/24 HOURS TOPICAL PATCH TD SCH (10:42)
[2021-10-16] MEDS: PRENATAL VITAMINS W/ FOLIC ACID TABLET (FP) PO SCH (10:42)
== END 2021-10-16 09:22 | disposition home or self-care (01) | DRG 773 ==
LOC: YASAS 18:50 → Y3N 22:22
PROVIDERS: ADMIT Allergy & Immunology; ATTEND Allergy & Immunology
PROC: HZ2ZZZZ Detoxification Services for Substance Abuse Treatment (ICD-10-PCS; principal; 2021-10-11)
DX: F11.23 Opioid dependence with withdrawal (principal); F17.210 Nicotine dependence, cigarettes, uncomplicated; F19.24 Other psychoactive substance dependence with psychoactive substance-induced mood disorder; F41.9 Anxiety disorder, unspecified; F32.A Depression, unspecified; G47.00 Insomnia, unspecified; R74.01 Elevation of levels of liver transaminase levels
CPT/HCPCS: 36415; 80053; 82962; 85027; 86780; 87811; 93005; 93010; C9803-CS; U0003; U0005

== ENCOUNTER 2022-03-04 18:54 | Emergency (ER) | payer OTHER ==
[2022-03-04 19:11] VITALS: BP 121/83; PULSE 69; RESP 19; TEMP 97.9; BMI 33.7
[2022-03-04] MEDS ORDERED: IBUPROFEN 600 MG TABLET (FP) PO ONE ×2 (20:08→20:16)
== END 2022-03-04 21:24 | disposition home or self-care (01) ==
LOC: JERFT 18:54
DX: M79.10 Myalgia, unspecified site (principal)
CPT/HCPCS: 71101-TC-RT-FY; 73110-TC-LT-FY; 73130-TC-LT-FY; 73562-TC-LT-FY; 99284-25

== ENCOUNTER 2023-01-09 10:42 | Inpatient (IN) | payer OTHER ==
[2023-01-09 11:18] VITALS: BMI 31.5
[2023-01-09] MEDS ORDERED: NALOXONE HCL 0.4 MG/ML VIAL IM PRN (13:55)
[2023-01-09] MEDS ORDERED: NALOXONE HCL (KLOXXADO) 8 MG SPRAY NS PRN (13:55)
[2023-01-09] MEDS ORDERED: guaiFENesin 600 MG TABLET.ER (FP) PO PRN (13:55)
[2023-01-09] MEDS ORDERED: IBUPROFEN 600 MG TABLET (FP) PO PRN (13:55)
[2023-01-09] MEDS ORDERED: POLYETHYLENE GLYCOL (HEALTHYLAX) 3350 17 GM PACKET PO PRN (13:55)
[2023-01-09] MEDS ORDERED: ACETAMINOPHEN 325 MG TABLET (FP) PO PRN (13:55)
[2023-01-09] MEDS ORDERED: IBUPROFEN 400 MG TABLET (FP) PO PRN (13:55)
[2023-01-09] MEDS ORDERED: ONDANSETRON *ODT* 4 MG TABLET SL PRN (13:55)
[2023-01-09] MEDS ORDERED: MAGNESIUM HYDROX 2400MG/30ML ORAL SUSPENSION 30 ML CUP PO PRN (13:55)
[2023-01-09] MEDS ORDERED: BISMUTH SUBSALICYLATE 262 MG/15 ML BTL PO PRN (13:55)
[2023-01-09] MEDS ORDERED: BENZONATATE 200 MG CAPSULE PO PRN (13:55)
[2023-01-09] MEDS ORDERED: DICYCLOMINE HCL 10 MG CAPSULE PO PRN (13:55)
[2023-01-09] MEDS ORDERED: LOPERAMIDE HCL 2 MG CAPSULE PO PRN (13:55)
[2023-01-09] MEDS ORDERED: BENZOCAINE/MENTHOL (CHLORASEPTIC ) LOZENGE MM PRN (13:55)
[2023-01-09] MEDS ORDERED: MAG HYDROX/AL HYDROX/SIMETH 30 ML UNIT-DOSE CUP PO PRN (13:55)
[2023-01-09] MEDS ORDERED: methaDONE HCL 10 MG TABLET (FOR DETOX USE ONLY) PO ONE (13:57)
[2023-01-09] MEDS ORDERED: cloNIDine HCL 0.1 MG TABLET PO PRN (13:57)
[2023-01-09] MEDS ORDERED: PRENATAL VITAMINS W/ FOLIC ACID TABLET (FP) PO ONE (15:00)
[2023-01-09] MEDS ORDERED: methaDONE HCL 10 MG TABLET (FOR DETOX USE ONLY) ONE (15:00)
[2023-01-09] MEDS: PRENATAL VITAMINS W/ FOLIC ACID TABLET (FP) PO SCH (15:06)
[2023-01-09] MEDS: hydrOXYzine PAMOATE 25 MG CAPSULE (FP) PO PRN (17:34)
[2023-01-09 17:39] LABS: HEMATOCRIT 34.2 % (35.4-49); MCH 26.4 pg (25.7-33.7); MCHC 32.3 g/dl (32.0-35.9); MEAN CELL VOLUME 81.8 fl (80-96); MEAN PLT VOLUME 8.2 fl (7.5-11.1); PLATELET COUNT 205 10^3/uL (134-434); RBC 4.18 M/mm3 (4.00-5.60); WHITE BLOOD COUNT 7.9 K/mm3 (4.0-10.0)
[2023-01-09 17:43] LABS: POTASSIUM 4.9 mmol/L (3.5-5.1)
[2023-01-09 17:48] LABS: ALBUMIN 3.6 g/dl (3.4-5.0); BLOOD UREA NITROGEN 14.7 mg/dL (7-18)
[2023-01-09 17:51] LABS: CREATININE 1.2 mg/dL (0.55-1.3)
[2023-01-09 17:52] LABS: TOT PROT 6.4 g/dl (6.4-8.2)
[2023-01-09 17:53] LABS: BILIRUBIN,TOTAL 0.5 mg/dL (0.2-1)
[2023-01-09] MEDS: MELATONIN 5 MG TABLETS PO SCH (22:13)
[2023-01-09] MEDS: NICOTINE 10 MG CARTRIDGE (INHALER) IH PRN (22:13)
[2023-01-09] MEDS: METHOCARBAMOL 500 MG TABLET PO PRN (22:14)
[2023-01-09] MEDS: THIAMINE HCL 100 MG TABLET (FP) PO SCH (22:14)
[2023-01-10] MEDS: PRENATAL VITAMINS W/ FOLIC ACID TABLET (FP) PO SCH (10:15)
[2023-01-10] MEDS: NICOTINE 14 MG/24 HOURS TOPICAL PATCH TD SCH (10:16)
[2023-01-10] MEDS: hydrOXYzine PAMOATE 25 MG CAPSULE (FP) PO PRN ×2 (15:18→22:06)
[2023-01-10] MEDS: NICOTINE 10 MG CARTRIDGE (INHALER) IH PRN ×2 (15:19→22:07)
[2023-01-10] MEDS: MELATONIN 5 MG TABLETS PO SCH (22:05)
[2023-01-10] MEDS: THIAMINE HCL 100 MG TABLET (FP) PO SCH (22:05)
[2023-01-11] MEDS ORDERED: methaDONE HCL 10 MG TABLET (FOR DETOX USE ONLY) PO ONE (10:00)
[2023-01-11] MEDS: PRENATAL VITAMINS W/ FOLIC ACID TABLET (FP) PO SCH (10:26)
[2023-01-11] MEDS: NICOTINE 14 MG/24 HOURS TOPICAL PATCH TD SCH (10:26)
[2023-01-11] MEDS: METHOCARBAMOL 500 MG TABLET PO PRN ×2 (10:26→22:19)
[2023-01-11] MEDS: hydrOXYzine PAMOATE 25 MG CAPSULE (FP) PO PRN ×2 (10:26→22:20)
[2023-01-11] MEDS: THIAMINE HCL 100 MG TABLET (FP) PO SCH (22:19)
[2023-01-11] MEDS: MELATONIN 5 MG TABLETS PO SCH (22:19)
[2023-01-11] MEDS: NICOTINE 10 MG CARTRIDGE (INHALER) IH PRN (22:20)
[2023-01-12] MEDS: hydrOXYzine PAMOATE 25 MG CAPSULE (FP) PO PRN ×2 (07:56→22:08)
[2023-01-12] MEDS: METHOCARBAMOL 500 MG TABLET PO PRN ×2 (07:56→22:08)
[2023-01-12] MEDS: NICOTINE 10 MG CARTRIDGE (INHALER) IH PRN ×3 (07:58→21:24)
[2023-01-12] MEDS: PRENATAL VITAMINS W/ FOLIC ACID TABLET (FP) PO SCH (10:33)
[2023-01-12] MEDS: NICOTINE 14 MG/24 HOURS TOPICAL PATCH TD SCH (10:33)
[2023-01-12 15:36] LABS: TOTAL IRON BINDING CAPACITY 324 ug/dL (250-450)
[2023-01-12] MEDS: MELATONIN 5 MG TABLETS PO SCH (22:08)
[2023-01-12] MEDS: THIAMINE HCL 100 MG TABLET (FP) PO SCH (22:08)
[2023-01-13] MEDS: NICOTINE 10 MG CARTRIDGE (INHALER) IH PRN ×3 (09:38→22:51)
[2023-01-13] MEDS ORDERED: methaDONE HCL 10 MG TABLET (FOR DETOX USE ONLY) PO ONE (10:00)
[2023-01-13] MEDS: PRENATAL VITAMINS W/ FOLIC ACID TABLET (FP) PO SCH (10:39)
[2023-01-13] MEDS: METHOCARBAMOL 500 MG TABLET PO PRN ×2 (10:39→22:51)
[2023-01-13] MEDS: NICOTINE 14 MG/24 HOURS TOPICAL PATCH TD SCH (10:40)
[2023-01-13] MEDS: hydrOXYzine PAMOATE 25 MG CAPSULE (FP) PO PRN ×2 (10:41→22:50)
[2023-01-13 20:52] VITALS: RESP 18
[2023-01-13] MEDS: THIAMINE HCL 100 MG TABLET (FP) PO SCH (22:50)
[2023-01-13] MEDS: MELATONIN 5 MG TABLETS PO SCH (22:51)
[2023-01-14 06:20] VITALS: BP 103/52; PULSE 79; TEMP 97.9
== END 2023-01-14 09:00 | disposition home or self-care (01) | DRG 773 ==
LOC: YASAS 10:42 → Y6N 14:59
PROVIDERS: ADMIT Allergy & Immunology; ATTEND Surgery
PROC: HZ2ZZZZ Detoxification Services for Substance Abuse Treatment (ICD-10-PCS; principal; 2023-01-09)
DX: F11.23 Opioid dependence with withdrawal (principal); F14.10 Cocaine abuse, uncomplicated; F10.10 Alcohol abuse, uncomplicated; F17.213 Nicotine dependence, cigarettes, with withdrawal; F41.8 Other specified anxiety disorders; K59.03 Drug induced constipation; Z86.59 Personal history of other mental and behavioral disorders
CPT/HCPCS: 36415; 80053; 82607; 82746; 83550; 85027; 86780; 87635; 87811

== ENCOUNTER 2023-03-19 21:19 | Emergency (ER) | payer OTHER ==
[2023-03-19 21:38] VITALS: BP 124/81; PULSE 106; RESP 18; TEMP 99.4; BMI 32.8
[2023-03-19] MEDS ORDERED: KETOROLAC TROMETHAMINE 30 MG/1 ML VIAL IM ONE (22:42)
[2023-03-19] MEDS ORDERED: KETOROLAC TROMETHAMINE 30 MG/1 ML VIAL ONE (22:43)
== END 2023-03-20 00:28 | disposition home or self-care (01) ==
LOC: JER 21:19 → JERFT 21:19 → JER 03-20 00:28
PROC: 3E0233Z Introduction of Anti-inflammatory into Muscle, Percutaneous Approach (ICD-10-PCS; principal; 2023-03-19)
DX: R05.9 Cough, unspecified (principal); R07.89 Other chest pain; J20.8 Acute bronchitis due to other specified organisms
CPT/HCPCS: 71046-TC-FY; 99284-25